=== PATIENT | female | born 1975 | race Caucasian/White ===

== ENCOUNTER 2024-05-15 23:47 | Inpatient (IN) | payer OTHER, MEDICAID, SELFPAY ==
[2024-05-16] VITALS (104 sets, daily range): BP systolic 58–239; BP diastolic 37–133; PULSE 64–97; RESP 18–25; TEMP 36.6–37; O2SAT 92–100; BMI 22.4
[2024-05-16] MEDS: propofoL 1,000 MG/100 ML VIAL 1.665 MG IV (02:30)
[2024-05-16] MEDS: NOREPINEPHRINE BITARTRATE/D5W 4 MG/250 ML PLAST..BAG IV (02:50)
--- NOTE | 2024-05-16 03:04 | DI.CT.S_ITS ---
PROCEDURE: CT HEAD/BRAIN WO CON INDICATIONS: respiratory failure TECHNIQUE: Noncontrast 4.5 mm thick angled axial sections acquired from the foramen magnum to the vertex, with coronal and sagittal reformats. For radiation dose reduction, the following was used: automated exposure control, adjustment of mA and/or kV according to patient size. COMPARISON: None. FINDINGS: Image quality: Diagnostic. CSF spaces: Basal cisterns are patent. No extra-axial fluid collections. Ventricles are normal in size and shape. Brain: No midline shift. No intracranial masses or hemorrhage. Gonsalez-white matter interface is normal. Skull and face: Calvarium and visualized facial bones are intact, without suspicious lesions. Sinuses: Visualized sinuses and mastoids are clear. IMPRESSION: No evidence acute intracranial process. Comment: Final report is concordant with preliminary interpretation provided by [facility]. Dictated by: Blake Napier M.D. on 05/16/2024 at 6:50 Approved by: Blake Napier M.D. on 05/16/2024 at 6:51
[2024-05-16 03:43] LABS: Allen Test for ABG Passed? Positive; Base Excess ABG 1.1 mmol/L (-2-3); Blood Gas Collection Site Right Radial; Blood Gas Mode Assist Cont Ventilat; Delivery System Adult Ventilator; HCO3 ABG 24 mmol/L (23-27); Oxygen Saturation ABG 94 % (95-100); PCO2 ABG 32.4 mmHg (35-45); PEEP 5; PO2 ABG 64 mmHg (80-100); Respiratory Rate 20; TCO2 ABG 24 mmol/L (23-27); pH ABG 7.48 (7.35-7.45)
--- NOTE | 2024-05-16 03:45 | DI.RAD.S_ITS ---
PROCEDURE: XR CHEST 1V INDICATIONS: resp failure TECHNIQUE: One view of the chest was acquired. COMPARISON: None. FINDINGS: Overlying EKG leads limit evaluation. Surgical changes and devices: Endotracheal tube terminates 1.8 cm above the veena. Enteric decompression tube side port is in the gastric fundus. Right sided central venous catheter tip projects over the lower SVC. Lungs and pleura: Lungs are clear. No pleural effusions or pneumothorax. Mediastinum: Mediastinal contours appear normal. Heart size is normal. Bones and chest wall: No suspicious bony lesions. Overlying soft tissues appear unremarkable. IMPRESSION: Overlying EKG leads limit evaluation. 1. Within these limitations, no definite acute cardiopulmonary process. 2. Endotracheal tube terminates 1.8 cm above the veena. Right-sided central venous catheter tip projects over the lower SVC. Enteric decompression tube side port is in the gastric fundus. Dictated by: Martha Chen M.D. on 05/16/2024 at 9:57 Approved by: Martha Chen M.D. on 05/16/2024 at 9:59
--- NOTE | 2024-05-16 03:58 | PM.CN.EICU ---
History of Present Illness Consult details IF CAMERA ACTIVATED, patient seen via real-time interactive audiovisual communication: Camera activated Chief complaint: respiratory failure with drug od Consent obtained for tele-investment counselor care: Yes Patient Location: ICU Provider location (State): [place] Other participants/roles: RN Narrative: 48 yo F w/ unknown PMHx [place] mgmt of acute hypoxic respiratory failure. Has reported hx of suicide attempts and depression; on Suboxone. UDS (+) for opioids, Suboxone and possibly THC. Failed 8 mg naloxone. pCXR, C-spine/head imaging reportedly (-). Arrived on [place] and propofol infusions. Bedside RN reports possible seizure activity. Outpt med list mostly contain antihypertensives but also Humira. Outside EMR list chronic HCV and psoriasis as problems. Current Medications Current Medications Medications: Home Medications [EFFEXOR] ##0 12/20/03 [History] [NIFIDIPINE] ##0 12/20/03 [History] [PROVERA] ##0 12/20/03 [History] Exam Vital Signs (past 8 hours): - 05/16/24 02:51 05/16/24 02:51 05/16/24 02:53 Temperature Pulse Rate 81 Respiratory Rate 20 Blood Pressure 58/37 L 72/48 L Pulse Oximetry 94 Oxygen Delivery Method Fraction of Inspired Oxygen 05/16/24 02:53 05/16/24 02:55 05/16/24 02:55 Temperature Pulse Rate 81 84 Respiratory Rate 20 20 Blood Pressure 160/104 H Pulse Oximetry 92 100 Oxygen Delivery Method Fraction of Inspired Oxygen 05/16/24 03:00 05/16/24 03:00 05/16/24 03:05 Temperature Pulse Rate 92 H 88 Respiratory Rate 20 20 Blood Pressure 195/121 H Pulse Oximetry 100 100 Oxygen Delivery Method Fraction of Inspired Oxygen 05/16/24 03:05 05/16/24 03:10 05/16/24 03:10 Temperature 98.6 F Pulse Rate 87 Respiratory Rate 20 Blood Pressure 112/62 151/96 H Pulse Oximetry 100 Oxygen Delivery Method Fraction of Inspired Oxygen 05/16/24 03:15 05/16/24 03:15 05/16/24 03:20 Temperature Pulse Rate 89 87 Respiratory Rate 21 20 Blood Pressure 150/96 H Pulse Oximetry 100 99 Oxygen Delivery Method Fraction of Inspired Oxygen 05/16/24 03:20 05/16/24 03:25 05/16/24 03:25 Temperature Pulse Rate 86 Respiratory Rate 20 Blood Pressure 143/78 H 107/62 Pulse Oximetry 99 Oxygen Delivery Method Fraction of Inspired Oxygen 05/16/24 03:26 05/16/24 03:30 05/16/24 03:30 Temperature Pulse Rate 85 Respiratory Rate 20 Blood Pressure 91/56 L Pulse Oximetry 99 Oxygen Delivery Method Mechanical Ventilation Fraction of Inspired Oxygen 05/16/24 03:45 Temperature Pulse Rate Respiratory Rate Blood Pressure Pulse Oximetry Oxygen Delivery Method Fraction of Inspired Oxygen 40 Fraction of Inspired Oxygen 40 Oxygen Delivery Method Mechanical Ventilation Const Other: intubated, sedated Resp Other: non-labored respirations on 450 mL 40% RR 20 PEEP 5 Cardio Other: sinus rhythm on monitor Objective Labs Labs: Laboratory Results - last 24 hr 05/16/24 03:39 ABG Sample Site Right radial ABG pH 7.48 H ABG pCO2 32.4 L ABG pO2 64 L ABG HCO3 24 ABG Total CO2 24 ABG O2 Saturation 94 L ABG Base Excess 1.1 Octavio Test Positive Respiration Rate 20 O2 Delivery Device Adult ventilator Mode of Support Assist cont ventilat FiO2 % 40.0 % PEEP or CPAP 5 Assessment & Plan Assessment and plan (1) Acute hypoxic respiratory failure: Status: Acute Plan: -Vent bundle (2) Seizure-like activity: Status: Acute Plan: -Start Keppra -Will probably need neuro evaluation in AM -Repeat NCHCT is being obtained (3) History of suicide attempt: Status: Acute Plan: -Obtain further history -Check acetaminophen/salicylate levels (reported Chem 7 @ outside ED w/o an AGMA) Plan #ICU best practices -VTE prophylaxis: mechanical -Stress ulcer prophylaxis: Protonix I spent a total of 35 minutes of aggregate critical care time today on this patient's care, excluding all procedural time Time-Based Coding :: [TOTAL MINUTES] spent with patient and on the chart (including review of chart, obtaining history, exam, reviewing outside data, placing orders, documenting exam and treatment plan, and counseling patient) on [DATE].
[2024-05-16 04:38] LABS: Hematocrit 31.2 % (36-46); Hemoglobin 10.4 g/dL (12.0-16.0); Mean Corpuscular HGB Conc 33.5 % (30-36); Mean Corpuscular Hemoglobin 28.3 PG (26-34); Mean Corpuscular Volume 84.6 fL (80-100); Platelet Count 239 X10^3/uL (150-400); Red Blood Cell Count 3.69 X10^6/uL (4.0-5.2); Red Cell Distribution Width 13.5 % (11.6-14.8); White Blood Cell Count 7.7 X10^3/uL (4.5-11.0)
[2024-05-16] MEDS: DEXTROSE 5%-0.9% NS 1,000 ML 84 ML IV ×2 (04:43→16:19)
[2024-05-16 04:55] LABS: Acetaminophen < 10 ug/mL (10-30); Alanine Aminotransferase 18 IU/L (<35); Albumin 3.4 g/dL (3.5-5.0); Albumin Globulin Ratio 1.5 (1.0-2.8); Alkaline Phosphatase 73 U/L (38-126); Aspartate Aminotransferase 27 IU/L (14-36); BUN Creatinine Ratio 13.5 (6-22); Bilirubin Total 0.4 mg/dL (0.2-1.3); Blood Urea Nitrogen 12 mg/dL (7-17); Calcium 8.8 mg/dL (8.4-10.2); Carbon Dioxide 27 mmol/L (22-32); Chloride 112 mmol/L (98-107); Estimated Glomerular Filt Rate > 60 mL/min (>60); Globulin 2.3 g/dL (1.7-4.1); Glucose 87 mg/dL (70-100); HEMOLYSIS < 15 (0-50); Potassium 3.4 mmol/L (3.4-5.1); Salicylate < 1.0 mg/dL (<20); Sodium 144 mmol/L (137-145); Total Protein 5.7 g/dL (6.3-8.2)
[2024-05-16] MEDS: LEVETIRACETAM IV (05:14)
[2024-05-16] MEDS: SODIUM CHLORIDE 0.9% IV (05:14)
[2024-05-16] MEDS: CHLORHEXIDINE GLUCONATE 15 ML CUP PO ×3 (05:27→16:54)
--- NOTE | 2024-05-16 06:05 | PM.HP.1 ---
History of Present Illness History of Present Illness Date Patient Seen: 05/16/24 Time Patient Seen: 03:15 Chief complaint: respiratory failure with drug od Narrative: 48 years old female with a past medical history of drug abuse, suicidal ideation, major depression, hypertension and previous hospitalization for drug overdose needing vent support and multiple other medical issues was brought to the emergency room at an outside facility after being found unresponsive at home by her with an unknown downtime. EMS states her blood pressure was low and the CPR was performed. Patient was intubated in the field using succinylcholine and etomidate. Patient is currently unresponsive event and most of the history has been obtained from the chart/caregivers. In the emergency room at the outside facility, workup included CT of the head that showed no acute process. Labs showed a white count of 9.7 with a hemoglobin of 10.9. ABG showed pH of 7.54 with a pCO2 of 31 on vent. Sodium 140 with a potassium of 3.4 calcium is 9.5 magnesium 1.7, TSH of 4.29, folate of 6.5, B12 of 595, lipase of 50. Urine analysis is negative for ketones negative for leukocyte esterase. Urine tox screen is positive for opiates, buprenorphine, amphetamine and methamphetamine. IJ line was placed and patient needed initially Levophed for pressor support/propofol for sedation. Patient was transferred to [facility] for higher level of care Meds Home Medications and Allergies Home Medications Medication Instructions Recorded Confirmed Type [EFFEXOR] ##0 12/20/03 History [NIFIDIPINE] ##0 12/20/03 History [PROVERA] ##0 12/20/03 History Allergies Allergy/AdvReac Type Severity Reaction Status Date / Time No Known Allergies Allergy Verified 05/16/24 03:29 Review of Systems Review of Systems Narrative: unresponsive on vent Exam Vital Signs (past 8 hours): - 05/16/24 02:51 05/16/24 02:51 05/16/24 02:53 Temperature Pulse Rate 81 Respiratory Rate 20 Blood Pressure 58/37 L 72/48 L Pulse Oximetry 94 Oxygen Delivery Method Fraction of Inspired Oxygen 05/16/24 02:53 05/16/24 02:55 05/16/24 02:55 Temperature Pulse Rate 81 84 Respiratory Rate 20 20 Blood Pressure 160/104 H Pulse Oximetry 92 100 Oxygen Delivery Method Fraction of Inspired Oxygen 05/16/24 03:00 05/16/24 03:00 05/16/24 03:05 Temperature Pulse Rate 92 H 88 Respiratory Rate 20 20 Blood Pressure 195/121 H Pulse Oximetry 100 100 Oxygen Delivery Method Fraction of Inspired Oxygen 05/16/24 03:05 05/16/24 03:10 05/16/24 03:10 Temperature 98.6 F Pulse Rate 87 Respiratory Rate 20 Blood Pressure 112/62 151/96 H Pulse Oximetry 100 Oxygen Delivery Method Fraction of Inspired Oxygen 05/16/24 03:15 05/16/24 03:15 05/16/24 03:20 Temperature Pulse Rate 89 87 Respiratory Rate 21 20 Blood Pressure 150/96 H Pulse Oximetry 100 99 Oxygen Delivery Method Fraction of Inspired Oxygen 05/16/24 03:20 05/16/24 03:25 05/16/24 03:25 Temperature Pulse Rate 86 Respiratory Rate 20 Blood Pressure 143/78 H 107/62 Pulse Oximetry 99 Oxygen Delivery Method Fraction of Inspired Oxygen 05/16/24 03:26 05/16/24 03:30 05/16/24 03:30 Temperature Pulse Rate 85 Respiratory Rate 20 Blood Pressure 91/56 L Pulse Oximetry 99 Oxygen Delivery Method Mechanical Ventilation Fraction of Inspired Oxygen 05/16/24 03:35 05/16/24 03:35 05/16/24 03:40 Temperature Pulse Rate 85 84 Respiratory Rate 20 20 Blood Pressure 97/58 L Pulse Oximetry 100 100 Oxygen Delivery Method Fraction of Inspired Oxygen 05/16/24 03:40 05/16/24 03:45 05/16/24 03:45 Temperature Pulse Rate 84 Respiratory Rate 22 Blood Pressure 95/57 L 97/61 Pulse Oximetry 100 Oxygen Delivery Method Fraction of Inspired Oxygen 05/16/24 03:45 05/16/24 04:00 05/16/24 04:11 Temperature 98.4 F Pulse Rate 83 Respiratory Rate 23 Blood Pressure Pulse Oximetry 99 Oxygen Delivery Method Fraction of Inspired Oxygen 40 05/16/24 04:11 05/16/24 04:15 05/16/24 04:15 Temperature Pulse Rate 83 Respiratory Rate 19 Blood Pressure 97/61 83/51 L Pulse Oximetry 99 Oxygen Delivery Method Fraction of Inspired Oxygen 05/16/24 04:20 05/16/24 04:20 05/16/24 04:25 Temperature Pulse Rate 83 83 Respiratory Rate 20 20 Blood Pressure 87/52 L Pulse Oximetry 99 99 Oxygen Delivery Method Fraction of Inspired Oxygen 08/13/24 04:25 05/16/24 04:30 05/16/24 04:30 Temperature Pulse Rate 84 Respiratory Rate 18 Blood Pressure 85/50 L 102/68 Pulse Oximetry 99 Oxygen Delivery Method Fraction of Inspired Oxygen 05/16/24 04:35 05/16/24 04:35 05/16/24 04:40 Temperature Pulse Rate 84 85 Respiratory Rate 18 18 Blood Pressure 133/83 Pulse Oximetry 99 99 Oxygen Delivery Method Fraction of Inspired Oxygen 05/16/24 04:40 05/16/24 04:45 05/16/24 04:45 Temperature Pulse Rate 85 Respiratory Rate 18 Blood Pressure 134/86 139/86 Pulse Oximetry 99 Oxygen Delivery Method Fraction of Inspired Oxygen 05/16/24 04:50 05/16/24 04:50 05/16/24 04:55 Temperature Pulse Rate 96 H 92 H Respiratory Rate 18 18 Blood Pressure 204/114 H Pulse Oximetry 99 99 Oxygen Delivery Method Fraction of Inspired Oxygen 05/16/24 04:55 05/16/24 05:00 05/16/24 05:00 Temperature Pulse Rate 87 Respiratory Rate 18 Blood Pressure 145/85 H 98/55 L Pulse Oximetry 99 Oxygen Delivery Method Fraction of Inspired Oxygen 05/16/24 06:02 Temperature Pulse Rate Respiratory Rate Blood Pressure 232/131 H Pulse Oximetry Oxygen Delivery Method Fraction of Inspired Oxygen Fraction of Inspired Oxygen 40 Oxygen Delivery Method Mechanical Ventilation Narrative Exam Narrative: unresponsive on vent Objective Labs 05/16/24 04:30 05/16/24 04:30 Labs: Laboratory Results - last 24 hr 05/16/24 05/16/24 03:39 04:30 WBC 7.7 RBC 3.69 L Hgb 10.4 L Hct 31.2 L MCV 84.6 MCH 28.3 MCHC 33.5 RDW 13.5 Plt Count 239 ABG Sample Site Right radial ABG pH 7.48 H ABG pCO2 32.4 L ABG pO2 64 L ABG HCO3 24 ABG Total CO2 24 ABG O2 Saturation 94 L ABG Base Excess 1.1 Octavio Test Positive Respiration Rate 20 O2 Delivery Device Adult ventilator Mode of Support Assist cont ventilat FiO2 % 40.0 % PEEP or CPAP 5 Sodium 144 Potassium 3.4 Chloride 112 H Carbon Dioxide 27 BUN 12 Creatinine 0.89 Estimated GFR > 60 BUN/Creatinine Ratio 13.5 Glucose 87 Calcium 8.8 Total Bilirubin 0.4 AST 27 ALT 18 Alkaline Phosphatase 73 Total Protein 5.7 L Albumin 3.4 L Globulin 2.3 Albumin/Globulin Ratio 1.5 Salicylates < 1.0 Acetaminophen < 10 Assessment & Plan Assessment and plan (1) Acute hypoxic respiratory failure: Status: Acute Assessment & Plan narrative: 48 years old female with a past medical history of drug abuse, suicidal ideation, major depression, hypertension and previous hospitalization for drug overdose needing vent support and multiple other medical issues was brought to the emergency room at an outside facility after being found unresponsive at home by her with an unknown downtime. EMS states her blood pressure was low and the CPR was performed. Patient was intubated in the field using succinylcholine and etomidate. Patient is currently unresponsive event and most of the history has been obtained from the chart/caregivers. In the emergency room at the outside facility, workup included CT of the head that showed no acute process. Labs showed a white count of 9.7 with a hemoglobin of 10.9. ABG showed pH of 7.54 with a pCO2 of 31 on vent. Sodium 140 with a potassium of 3.4 calcium is 9.5 magnesium 1.7, TSH of 4.29, folate of 6.5, B12 of 595, lipase of 50. Urine analysis is negative for ketones negative for leukocyte esterase. Urine tox screen is positive for opiates, buprenorphine, amphetamine and methamphetamine. IJ line was placed and patient needed initially Levophed for pressor support/propofol for sedation. Patient was transferred to [facility] for higher level of care 1 drug overdose with respiratory failure currently underwent. Discussed with EICU for vent management. Repeat ABG and follow critical care for vent adjustments. In the meantime watch for anoxic encephalopathy. May eventually need neuroinput. Repeat CT scan of the brain due to pinpoint pupils which is a change in condition from the other facility. 2 seizures. Initiated on Keppra by critical care and will trend closely 3 GI prophylaxis will be with IV Protonix 4 DVT prophylaxis will be with SCDs Patient will be admitted under inpatient status. Given the respiratory failure currently needing IV pressors/IV propofol and other intervention, patient meets criteria for inpatient with expected length of stay greater than 2 midnights Time-Based Coding :: [TOTAL MINUTES] spent with patient and on the chart (including review of chart, obtaining history, exam, reviewing outside data, placing orders, documenting exam and treatment plan, and counseling patient) on [DATE].
[2024-05-16] MEDS: propofoL 1,000 MG/100 ML VIAL 6.66 MG IV (06:11)
--- NOTE | 2024-05-16 06:18 | PC.NURSE ---
Pt admitted from [facility] ED via EMS, intubated and on propofol and norepi. On arrival pt was displaying seizure like activity - full body shaking, rigid, eyes rolling back. Pupils 7mm, non reactive. Head CT and CXR completed. ETT pulled back per radiology recommendations. Neuro: Propofol for comfort on vent and seizure activity, pt intermittently does seem to wake up and track voice. Keppra loading dose given Pulm: Vent at 40%, 5+. LS CTA Cardiac: SR, rates 80s. BP extremely labile - very sensitive to norepi titrations. GI: OG to LIS , abd flat and soft : Snow in place via adequate yellow urine Access: Triple lumen right IJ, left EJ Skin: Psoriasis rash on back, chest, and arms Family: Lives with , no contact overnight
[2024-05-16 07:03] LABS: MRSA (Nasal) PCR NOT DETECTED (Not Detect)
[2024-05-16 09:17] LABS: Prothrombin Time 11.5 SECONDS (9.4-12.5)
[2024-05-16 09:20] LABS: PTT Partial Thromboplastin Tim 29 SECONDS (25.1-36.5)
[2024-05-16] MEDS: PANTOPRAZOLE 40 MG VIAL IV (09:23)
[2024-05-16] MEDS: POTASSIUM CHLORIDE IN WATER 10 MEQ/100 ML PIGGYBACK 100 MEQ IV ×2 (09:23→10:52)
[2024-05-16 09:33] LABS: Troponin I < 0.012 ng/mL (0.01-0.034)
[2024-05-16 09:53] LABS: Creatine Kinase 251 U/L (30-135)
--- NOTE | 2024-05-16 10:10 | DIET.CONS ---
Dietary Consultation Note Admission Date: 05/15/2024 23:47 Assessment: 48 y F admitted from outside facility after being found unresponsive at home. Nutrition consulted for NPO and on vent. PMH of drug abuse, suicidal ideation, and previous hospitalizations for drug overdose needing vent support. Per RN, SBT later today. If unable to extubate, recommend starting enteral nutrition within 48 hours. Propofol running at 10 mcg/kg/min providing 88 kcals/day. Ht: 157.48 cm Wt: 55.5 kg BMI: 22.4 UBW: No weight hx Last BM: () MNA: Marcello Score: 13 Labs: RBC 3.69 X10^6/uL (4.0-5.2) L 05/16/24 04:30 Hgb 10.4 g/dL (12.0-16.0) L 05/16/24 04:30 Hct 31.2 % (36-46) L 05/16/24 04:30 Creatinine 0.89 mg/dL (0.52-1.04) 05/16/24 04:30 Nutrition Diagnosis: Inadequate oral intake r/t intubated aeb NPO on vent Interventions: 1. Recc continuous enteral nutrition of Pivot 1.5 starting at 20 mL/h and titrating 10 mL/h q 8h as tolerated until goal rate of 30 mL/h. Free water flush 100 mL q 4 hr. Goal rate + current dose propofol provides 1168 kcals (83% EER), 67 g protein (100% estimated needs), and 540 mL water. Feed+flush+IV meets fluids needs (30 mL/kg). 2. Recc Mg, K+, phos labs BID for first 3 days EER: 4649-1062 kcals (25-29 kcals/kg per BMI) 50-60 g protein (1 g/kg) Monitoring/Evaluations: start of TF, TF rate, tolerance, propofol rate, labs Electronically Signed by: Arin Plascencia 05/16/24 10:10 Clinical Dietitian [address] [id number]
--- NOTE | 2024-05-16 13:21 | PM.ICURNDS ---
- :: This patient was seen via real time interactive two-way audiovisual telecommunication. pt remains intubated and sedated. mental status is slowly imrpovng but not well enough for SAt/SBT/PSV trials. she remians on levophed
--- NOTE | 2024-05-16 13:43 | P.HP_ITS ---
History of Present Illness History of Present Illness Date Patient Seen: 05/16/24 Time Patient Seen: 08:45 Chief complaint: respiratory failure with drug od Narrative: Per overnight admitting provider, 48 years old female with a past medical history of drug abuse, suicidal ideation, major depression, hypertension and previous hospitalization for drug overdose needing vent support and multiple other medical issues was brought to the emergency room at an outside facility after being found unresponsive at home by her with an unknown downtime. EMS states her blood pressure was low and the CPR was performed. Patient was intubated in the field using succinylcholine and etomidate. Patient is currently unresponsive event and most of the history has been obtained from the chart/caregivers. In the emergency room at the outside facility, workup included CT of the head that showed no acute process. Labs showed a white count of 9.7 with a hemoglobin of 10.9. ABG showed pH of 7.54 with a pCO2 of 31 on vent. Sodium 140 with a potassium of 3.4 calcium is 9.5 magnesium 1.7, TSH of 4.29, folate of 6.5, B12 of 595, lipase of 50. Urine analysis is negative for ketones negative for leukocyte esterase. Urine tox screen is positive for opiates, buprenorphine, amphetamine and methamphetamine. IJ line was placed and patient needed initially Levophed for pressor support/propofol for sedation. Patient was transferred to [facility] for higher level of care Patient remains intubated, no additional history available at this time. Patient reportedly had seizure like activity here. Was given keppra load. CK mildly elevated in the 200s. Troponin was negative (checked due to CPR being performed). [facility] Medical History Depression (08/24/02) Hepatitis C, chronic (04/11/02) Meds Home Medications and Allergies Home Medications Medication Instructions Recorded Confirmed Type [EFFEXOR] ##0 12/20/03 History [NIFIDIPINE] ##0 12/20/03 History [PROVERA] ##0 12/20/03 History amlodipine 10 mg tablet 10 mg PO DAILY 05/16/24 History lisinopril 40 mg tablet 40 mg PO DAILY 05/16/24 History methotrexate sodium 5 mg tablet 15 mg PO 05/16/24 History (Trexall) methylphenidate HCl 20 mg tablet 20 mg PO BID 05/16/24 05/16/24 History metoprolol succinate 100 mg 100 mg PO DAILY 05/16/24 History tablet,extended release 24 hr venlafaxine 150 mg 150 mg PO DAILY 05/16/24 History capsule,extended release 24 hr Allergies Allergy/AdvReac Type Severity Reaction Status Date / Time No Known Allergies Allergy Verified 05/16/24 03:29 Review of Systems Review of Systems Narrative: unable to perform Exam Vital Signs (past 8 hours): - 05/16/24 05:51 05/16/24 05:51 05/16/24 06:00 Temperature Pulse Rate 87 93 H Respiratory Rate 18 18 Blood Pressure 113/65 Pulse Oximetry 99 99 Oxygen Delivery Method 05/16/24 06:00 05/16/24 06:02 05/16/24 06:06 Temperature Pulse Rate Respiratory Rate Blood Pressure 222/131 H 232/131 H 161/97 H Pulse Oximetry Oxygen Delivery Method 05/16/24 06:06 05/16/24 06:10 05/16/24 06:10 Temperature Pulse Rate 93 H 90 Respiratory Rate 19 21 Blood Pressure 149/91 H Pulse Oximetry 99 99 Oxygen Delivery Method 05/16/24 06:15 05/16/24 06:15 05/16/24 06:18 Temperature Pulse Rate 87 Respiratory Rate 24 Blood Pressure 122/76 122/76 Pulse Oximetry 99 Oxygen Delivery Method 05/16/24 06:30 05/16/24 06:30 05/16/24 06:45 Temperature Pulse Rate 84 83 Respiratory Rate 18 19 Blood Pressure 105/70 Pulse Oximetry 99 99 Oxygen Delivery Method 05/16/24 06:45 05/16/24 07:00 05/16/24 07:00 Temperature Pulse Rate 82 Respiratory Rate 18 Blood Pressure 98/68 101/70 Pulse Oximetry 99 Oxygen Delivery Method 05/16/24 08:00 05/16/24 08:00 05/16/24 08:00 Temperature Pulse Rate 82 Respiratory Rate 18 Blood Pressure 114/75 Pulse Oximetry 99 Oxygen Delivery Method Mechanical Ventilation 05/16/24 08:15 05/16/24 08:15 05/16/24 08:24 Temperature Pulse Rate 80 Respiratory Rate 18 Blood Pressure 86/54 L 89/50 L Pulse Oximetry 99 Oxygen Delivery Method 05/16/24 08:24 05/16/24 08:30 05/16/24 08:30 Temperature Pulse Rate 80 79 Respiratory Rate 18 18 Blood Pressure 83/53 L Pulse Oximetry 97 97 Oxygen Delivery Method 05/16/24 08:30 05/16/24 08:32 05/16/24 08:32 Temperature 98.3 F Pulse Rate 78 Respiratory Rate 19 Blood Pressure 83/51 L Pulse Oximetry 97 Oxygen Delivery Method 05/16/24 08:45 05/16/24 08:45 05/16/24 09:00 Temperature Pulse Rate 79 Respiratory Rate 18 Blood Pressure 102/64 99/63 Pulse Oximetry 98 Oxygen Delivery Method 05/16/24 09:00 05/16/24 09:30 05/16/24 09:30 Temperature Pulse Rate 81 81 Respiratory Rate 18 19 Blood Pressure 101/63 Pulse Oximetry 97 97 Oxygen Delivery Method 05/16/24 09:45 05/16/24 09:45 05/16/24 10:00 Temperature Pulse Rate 81 Respiratory Rate 19 Blood Pressure 100/60 102/62 Pulse Oximetry 97 Oxygen Delivery Method 05/16/24 10:00 05/16/24 10:15 05/16/24 10:15 Temperature Pulse Rate 82 82 Respiratory Rate 18 19 Blood Pressure 103/60 Pulse Oximetry 97 97 Oxygen Delivery Method 05/16/24 10:30 05/16/24 10:30 05/16/24 10:45 Temperature Pulse Rate 83 82 Respiratory Rate 18 18 Blood Pressure 103/59 L Pulse Oximetry 97 97 Oxygen Delivery Method 05/16/24 10:45 05/16/24 11:00 05/16/24 11:00 Temperature Pulse Rate 82 Respiratory Rate 18 Blood Pressure 106/63 101/63 Pulse Oximetry 97 Oxygen Delivery Method 05/16/24 11:15 05/16/24 11:15 05/16/24 11:30 Temperature Pulse Rate 82 82 Respiratory Rate 18 18 Blood Pressure 105/62 Pulse Oximetry 97 97 Oxygen Delivery Method 05/16/24 11:30 05/16/24 11:45 05/16/24 11:45 Temperature Pulse Rate 81 Respiratory Rate 18 Blood Pressure 102/63 107/64 Pulse Oximetry 96 Oxygen Delivery Method 05/16/24 12:00 05/16/24 12:00 05/16/24 12:15 Temperature Pulse Rate 82 81 Respiratory Rate 18 22 Blood Pressure 108/65 Pulse Oximetry 96 97 Oxygen Delivery Method 05/16/24 12:15 05/16/24 12:30 05/16/24 12:30 Temperature Pulse Rate 81 Respiratory Rate 19 Blood Pressure 111/68 113/69 Pulse Oximetry 97 Oxygen Delivery Method 05/16/24 12:45 05/16/24 12:45 05/16/24 13:00 Temperature 98.6 F Pulse Rate 81 Respiratory Rate 19 Blood Pressure 105/66 105/63 Pulse Oximetry 97 Oxygen Delivery Method 05/16/24 13:00 Temperature Pulse Rate 80 Respiratory Rate 18 Blood Pressure Pulse Oximetry 97 Oxygen Delivery Method Fraction of Inspired Oxygen 40 Oxygen Delivery Method Mechanical Ventilation Narrative Exam Narrative: Gen: intubated, sedated ENT: ETT in place CV: RRR no m/r/g Pulm: CTA though ventilated Ext: no edema Objective ECG Impression: reviewed outside ekg, normal sinus rhythm, no acute ischemia. Labs 05/16/24 04:30 05/16/24 04:30 Labs: Laboratory Results - last 24 hr 05/16/24 05/16/24 05/16/24 03:07 03:39 04:30 WBC 7.7 RBC 3.69 L Hgb 10.4 L Hct 31.2 L MCV 84.6 MCH 28.3 MCHC 33.5 RDW 13.5 Plt Count 239 PT INR APTT ABG Sample Site Right radial ABG pH 7.48 H ABG pCO2 32.4 L ABG pO2 64 L ABG HCO3 24 ABG Total CO2 24 ABG O2 Saturation 94 L ABG Base Excess 1.1 Octavio Test Positive Respiration Rate 20 O2 Delivery Device Adult ventilator Mode of Support Assist cont ventilat FiO2 % 40.0 % PEEP or CPAP 5 Sodium 144 Potassium 3.4 Chloride 112 H Carbon Dioxide 27 BUN 12 Creatinine 0.89 Estimated GFR > 60 BUN/Creatinine Ratio 13.5 Glucose 87 Calcium 8.8 Total Bilirubin 0.4 AST 27 ALT 18 Alkaline Phosphatase 73 Total Creatine Kinase Troponin I Total Protein 5.7 L Albumin 3.4 L Globulin 2.3 Albumin/Globulin Ratio 1.5 Nasal Screen MRSA (PCR) Not detected Salicylates < 1.0 Acetaminophen < 10 05/16/24 08:58 WBC RBC Hgb Hct MCV MCH MCHC RDW Plt Count PT 11.5 INR 1.0 APTT 29 ABG Sample Site ABG pH ABG pCO2 ABG pO2 ABG HCO3 ABG Total CO2 ABG O2 Saturation ABG Base Excess Octavio Test Respiration Rate O2 Delivery Device Mode of Support FiO2 % PEEP or CPAP Sodium Potassium Chloride Carbon Dioxide BUN Creatinine Estimated GFR BUN/Creatinine Ratio Glucose Calcium Total Bilirubin AST ALT Alkaline Phosphatase Total Creatine Kinase 251 H Troponin I < 0.012 Total Protein Albumin Globulin Albumin/Globulin Ratio Nasal Screen MRSA (PCR) Salicylates Acetaminophen Assessment & Plan Assessment & Plan narrative: 48 years old female with a past medical history of drug abuse, suicidal ideation, major depression, hypertension and previous hospitalization for drug overdose needing vent support and multiple other medical issues was brought to the emergency room at an outside facility after being found unresponsive at home by her with an unknown downtime with presumed overdose at this time vs possible seizure. 1. Undifferentiated, likely hypovolemic rather than septic, shock - wean levophed as tolerated, continue IV fluids. - no obvious infection, normal WBC. Check UA. CXR with no pneumonia. Monitor off antibiotics now. - appreciate tele-system designer consultation / management. 2. presumed toxic encephalopathy and acute respiratory failure with hypoxia - will leave intubated and sedated today, attempt sedation vacation starting tomorrow. - keep O2 sats above 90%. 3. Reported seizure activity - unclear if previously known seizures. May be related to ingestion as well, or possible drug withdrawal as well. - started on keppra, will continue IV BID for now. - CK mildly elevated at 251, though not check on admission would suspect higher before. 4. HTN - hold any home antihypertensives in the setting of shock. Resume if needed. I have utilized all available immediate resources to obtain, update, or review the patient's current medications. Dispo: patient admitted under inpatient status to the ICU. Will need mental health evaluation once extubated to determine if patient safe to return home,. Additional history obtained via discussions with the overnight provider and tele-system designer. These discussions contributed to the creation of the above assessment and plan. I have reviewed patient's presenting documentation, labs, and imaging personally. I spent 40 minutes providing critical care management this patient. This excludes time spent in performing separately billed procedures. Time-Based Coding :: [TOTAL MINUTES] spent with patient and on the chart (including review of chart, obtaining history, exam, reviewing outside data, placing orders, documenting exam and treatment plan, and counseling patient) on [DATE].
--- NOTE | 2024-05-16 15:30 | CM.DANOTE ---
DCP Assessment Note: Pt is a 48yo female, resident of [place], is admitted for respiratory failure with possible substance use OD. Pt lives in a house with her spouse and her adult stepdaughter with special needs. Pt's Primary Care Provider is Dr. Andrew Kellogg and insurance is [facility] and Medicaid. Reviewed chart and team rounds for pt's medical status and initial discharge needs. Per hospitalist, pt will remain sedated this day. DCP met w/patient at bedside; introduced self and role. Patient was found in bed, sedated and intubated, not able to participate in assessment. DCP attempted to contact pt's but was not able to contact. Plan: Plan of care evolving, pt is sedated and intubated at this time. CM team will follow closely for coordination of discharge plans. FELECIA Peña Discharge Planning/Care Management CM Discharge Assessment Start: 05/16/24 15:28 Freq: Status: Active Protocol: Document 05/16/24 15:28 MW (Rec: 05/16/24 15:30 MW [id number]) Discharge Planning Assessment Assigned Machine Edge Bander KADEEM Partt DPOA/Assigned Designee Name Adam Spouse Contact Information [phone] Advance Directives? No History Provided By Medical Record Has Patient been admitted in last 30 No days? Prior Living Arrangements House Household Members spouse,children Comment Pt lives with spouse and adult stepdaughter who has special needs. Type of transporation used prior to Drives own vehicle admit Independent with ADL's Yes Is patient alert and oriented? No: Pt currently sedated and intubated. Caregiver for Another No Please Provide Date Initial DC 05/16/24 Assessment Was Performed Next Review Type Continued Stay Review
--- NOTE | 2024-05-16 15:50 | PC.NURSE ---
VALUABLES Pt's rings (x3) removed from fingers due to hand swelling and then stud earrings (x4) removed from ears per 's (Adam) request. Pt took all jewelry home with him.
[2024-05-16 16:32] LABS: Appearance Urine UA CLEAR; Bilirubin Urine UA NEGATIVE (NEGATIVE); Color Urine UA YELLOW; Glucose Urine UA NEGATIVE (Negative); Ketones Urine UA NEGATIVE (NEGATIVE); Leukocyte Esterase Urine UA TRACE (NEGATIVE); Nitrite Urine UA NEGATIVE (Negative); Occult Blood Urine UA TRACE-INTACT (Negative); Protein Urine UA TRACE (Negative); Specific Gravity Urine UA >=1.030 (1.000-1.035); Urobilinogen Urine UA 0.2 E.U./dL (0.2)
[2024-05-16 16:41] LABS: Bacteria Urine Moderate (10-30); Culture Indicated Urine Specimen Cultured; RBC Urine 1-5/HPF (0-5/HPF); Squamous Epithelial Cell Urine 1-5 /HPF (0-5/HPF); Urine Volume 3; WBC Urine 5-10/HPF (0-5/HPF); pH Urine UA 5.5 (4.5-8.0)
[2024-05-16] MEDS: levETIRAcetam 500 MG in SODIUM CHLORIDE 0.9% 100 ML 420 MG IV (16:53)
--- NOTE | 2024-05-16 18:21 | PC.NURSE ---
Day Shift Note Patient remains on mechanical vent TV 300/35% FIO2/RR 18/5. SpO2 upper 90s. SR in the 70-80s. SAT done, propofol off for first half of shift, pt will open eyes to voice but does not track, able to intermittently follow commands, falls quickly back asleep. Labile, intermittently agitated with care so propofol was restarted at 10 mcg/kg/min. Approx 1800 pt eyes wide and thrashing in bed, oriented to situation, difficult to calm, propofol gtt titrated up to 30 mcg/kg/min. Levophed off since 1600, goal MAP 60 or greater per MD. Soft restraints in place to bilateral wrists. Snow in place and draining yellow urine.
--- NOTE | 2024-05-16 20:07 | P.ICUMDRN_ITS ---
- Date Patient Seen: 05/16/24 :: This patient was seen via real time interactive two-way audiovisual telecommunic ation. Note: Admitted for acute encephalopathy and respiratory failure. Remains sedated with propofol. No acute issues. Will check SAT in the am. D/w bedside RN.
[2024-05-16] MEDS: propofoL 1,000 MG/100 ML VIAL 11.655 MG IV (22:07)
[2024-05-17] VITALS (57 sets, daily range): BP systolic 108–184; BP diastolic 68–114; PULSE 62–89; RESP 18–23; TEMP 36.1–37.3; O2SAT 89–99
[2024-05-17] MEDS: CHLORHEXIDINE GLUCONATE 15 ML CUP PO ×4 (01:33→16:32)
[2024-05-17] MEDS: DEXTROSE 5%-0.9% NS 1,000 ML 84 ML IV ×2 (03:16→13:45)
[2024-05-17 03:32] LABS: Add Manual Diff / Slide Review NO; Basophils Absolute Auto 0 /uL (0-100); Basophils Percent Auto 0.4 % (0-2); Eosinophils Absolute Auto 200 /uL (0-450); Eosinophils Percent Auto 4.2 % (2-4); Hematocrit 28.3 % (36-46); Hemoglobin 9.5 g/dL (12.0-16.0); Lymphocytes Absolute Auto 1300 /uL (1100-4500); Lymphocytes Percent Auto 23.9 % (25-40); Mean Corpuscular HGB Conc 33.6 % (30-36); Mean Corpuscular Hemoglobin 28.6 PG (26-34); Mean Corpuscular Volume 85.3 fL (80-100); Monocytes Absolute Auto 500 /uL (0-900); Neutrophils Absolute Auto 3400 /uL (1500-7000); Neutrophils Percent Auto 62.5 % (50-75); Platelet Count 167 X10^3/uL (150-400); Red Blood Cell Count 3.32 X10^6/uL (4.0-5.2); Red Cell Distribution Width 13.9 % (11.6-14.8); White Blood Cell Count 5.5 X10^3/uL (4.5-11.0)
--- NOTE | 2024-05-17 03:45 | DI.RAD.S_ITS ---
PROCEDURE: XR CHEST 1V INDICATIONS: resp failure TECHNIQUE: One view of the chest was acquired. COMPARISON: [facility], CR, XR CHEST 1V, 05/16/2024, 3:49. FINDINGS: Surgical changes and devices: Enteric tube courses below the left hemidiaphragm in of the field view. The endotracheal tube terminates approximately 4.5 centimeters above the veena. Interval removal of a right-sided central venous catheter. Lungs and pleura: Lungs are clear. No pleural effusions or pneumothorax. Mediastinum: Mediastinal contours appear normal. Heart size is normal. Bones and chest wall: No suspicious bony lesions. Overlying soft tissues appear unremarkable. IMPRESSION: 1. No acute cardiopulmonary process. 2. Interval removal of a right-sided central venous catheter. Dictated by: Danilo Zuleta M.D. on 05/17/2024 at 9:43 Approved by: Danilo Zuleta M.D. on 05/17/2024 at 9:48
[2024-05-17 03:49] LABS: Alanine Aminotransferase 14 IU/L (<35); Albumin 2.9 g/dL (3.5-5.0); Albumin Globulin Ratio 1.3 (1.0-2.8); Alkaline Phosphatase 60 U/L (38-126); Aspartate Aminotransferase 19 IU/L (14-36); BUN Creatinine Ratio 15.1 (6-22); Bilirubin Total 0.3 mg/dL (0.2-1.3); Blood Urea Nitrogen 11 mg/dL (7-17); Carbon Dioxide 28 mmol/L (22-32); Chloride 115 mmol/L (98-107); Estimated Glomerular Filt Rate > 60 mL/min (>60); Globulin 2.3 g/dL (1.7-4.1); Glucose 114 mg/dL (70-100); HEMOLYSIS < 15 (0-50); Magnesium 1.8 mg/dL (1.6-2.3); Potassium 3.6 mmol/L (3.4-5.1); Sodium 145 mmol/L (137-145); Total Protein 5.2 g/dL (6.3-8.2)
[2024-05-17] MEDS: levETIRAcetam 500 MG in SODIUM CHLORIDE 0.9% 100 ML 420 MG IV ×2 (04:53→15:34)
[2024-05-17] MEDS: propofoL 1,000 MG/100 ML VIAL 9.99 MG IV (04:58)
--- NOTE | 2024-05-17 06:10 | PC.NURSE ---
Pt is extremely hypersensitive when attempting to perform cares, requires increase in propofol so she is unable to pull ETT out. Yellow thick sputum this AM. was updated overnight.
[2024-05-17] MEDS: dexmedeTOMIDine in 0.9 % NaCL 400 MCG/100 ML PLAST..BAG IV (08:45)
[2024-05-17] MEDS: PANTOPRAZOLE 40 MG VIAL IV (08:46)
--- NOTE | 2024-05-17 10:12 | P.TELICUPN_ITS ---
Subjective Subjective IF CAMERA ACTIVATED, patient seen via real-time interactive audiovisual communication: Camera activated Consent obtained for tele-model and pattern supervisor care: Yes Patient Location: ICU Provider location (State): Other participants/roles: RN Interval history: Pt intubated , sedated on propfol and precedex @0.8. CAR RESTORER reviewed, vent 18/300/5/21% (1) Acute hypoxic respiratory failure: Status: Acute Plan: Increase precdedx and wean off Propofol then SBT -Vent bundle (2) Seizure-like activity: Acute -On Keppra -Will probably need neuro evaluation in AM -Repeat NCHCT is being obtained (3) History of suicide attempt: Status: Acute Plan: Psych consult after extubation Plan #ICU best practices -VTE prophylaxis: mechanical -Stress ulcer prophylaxis: Protonix I spent a total of 35 minutes of aggregate critical care time today on this patient's care, excluding all procedural time Current Medications Current Medications Medications: Home Medications amlodipine 10 mg tablet 10 mg PO DAILY 05/16/24 [History Confirmed 05/16/24] buprenorphine 8 mg-naloxone 2 mg sublingual film (Suboxone) 2.5 film sublingual DAILY 05/16/24 [History Confirmed 05/16/24] clonazepam 1 mg tablet 1 mg PO BID 05/16/24 [History Confirmed 05/16/24] lisinopril 40 mg tablet 40 mg PO DAILY 05/16/24 [History Confirmed 05/16/24] methotrexate sodium 5 mg tablet (Trexall) 15 mg PO QWEEK 05/16/24 [History Confirmed 05/16/24] methylphenidate HCl 20 mg tablet 20 mg PO BID 05/16/24 [History Confirmed 05/16/24] metoprolol succinate 100 mg tablet,extended release 24 hr 100 mg PO DAILY 05/16/24 [History Confirmed 05/16/24] venlafaxine 150 mg capsule,extended release 24 hr 150 mg PO DAILY 05/16/24 [History Confirmed 05/16/24] venlafaxine 75 mg capsule,extended release 24 hr 75 mg PO DAILY 05/16/24 [History Confirmed 05/16/24] Visit Medications (administered) Generic Name Dose Route Start Last Admin Trade Name Freq PRN Reason Stop Dose Admin Chlorhexidine Gluconate 15 ml 05/16/24 06:00 05/17/24 06:16 Chlorhexidine Gluconate 15 Ml Cup PO 15 ml Q6HR SHE Administration NOREPINEPHRINE BITARTRATE/D5W 4 mg in 250 mls @ 20.813 mls/hr 05/16/24 03:43 05/16/24 16:00 Levophed IV 0 mcg/kg/min TITRATE SHE 0 mls/hr Titration Protocol 0.1 MCG/KG/MIN Propofol 1,000 mg in 100 mls @ 1.665 mls/hr 05/16/24 03:45 05/17/24 09:00 Propofol IV 50 mcg/kg/min TITRATE SHE 16.65 mls/hr Titration Protocol 5 MCG/KG/MIN Dextrose/Sodium Chloride 1,000 mls @ 84 mls/hr 05/16/24 04:00 05/17/24 03:16 Dextrose 5%-0.9% Ns IV 84 mls/hr CONT SHE Administration Levetiracetam 500 mg/ Sodium 105 mls @ 420 mls/hr 05/16/24 16:00 05/17/24 05:15 Chloride IV Infused Q12H SHE Infusion dexmedeTOMIDine in 0.9 % NaCL 400 mcg in 100 mls @ 2.775 mls/hr 05/17/24 08:45 05/17/24 09:30 Precedex IV 0.8 mcg/kg/hr TITRATE SHE 11.1 mls/hr Titration Protocol 0.2 MCG/KG/HR Pantoprazole Sodium 40 mg 05/16/24 09:00 05/17/24 08:46 Pantoprazole 40 Mg Vial IV 40 mg DAILY SHE Administration Objective Ventilator Parameters: Ventilator Settings FiO2 30 RT Vent Frequency 18 Ventilator Tidal Volume 300 Exhaled Vt/kg IBW 6 Positive End Expiratory 5 Pressure Inspiratory Phase Time 0.9 I:E Ratio 1:2.7 Patient Position HOB >= 30 degrees Labs 05/17/24 03:22 05/17/24 03:22 Labs: Laboratory Results - last 24 hr 05/16/24 05/17/24 15:34 03:22 WBC 5.5 RBC 3.32 L Hgb 9.5 L Hct 28.3 L MCV 85.3 MCH 28.6 MCHC 33.6 RDW 13.9 Plt Count 167 Neut % (Auto) 62.5 Lymph % (Auto) 23.9 L [place] % (Auto) 9.0 Eos % (Auto) 4.2 H Baso % (Auto) 0.4 Neut # (Auto) 3400 Lymph # (Auto) 1300 [place] # (Auto) 500 Eos # (Auto) 200 Baso # (Auto) 0 Sodium 145 Potassium 3.6 Chloride 115 H Carbon Dioxide 28 BUN 11 Creatinine 0.73 Estimated GFR > 60 BUN/Creatinine Ratio 15.1 Glucose 114 H Calcium 9.0 Magnesium 1.8 Total Bilirubin 0.3 AST 19 ALT 14 Alkaline Phosphatase 60 Total Protein 5.2 L Albumin 2.9 L Globulin 2.3 Albumin/Globulin Ratio 1.3 Urine Color Yellow Urine Appearance Clear Urine pH 5.5 Ur Specific [place] >=1.030 H Urine Protein Trace H Urine Glucose (UA) Negative Urine Ketones Negative Urine Occult Blood Trace-intact Urine Nitrate Negative Urine Bilirubin Negative Urine Urobilinogen 0.2 Ur Leukocyte Esterase Trace H Urine RBC 1-5/hpf Urine WBC 5-10/hpf H Ur Squamous Epith Cells 1-5 /hpf Urine Bacteria Moderate (10-30) H Ur Culture Indicated? Specimen cultured Vol Urine Centrifuged 3 Exam Vital Signs (past 8 hours): - 05/17/24 02:30 05/17/24 03:00 05/17/24 03:00 Temperature Pulse Rate 69 69 Respiratory Rate 18 18 Blood Pressure 125/78 Pulse Oximetry 96 96 Oxygen Delivery Method 05/17/24 03:30 05/17/24 04:00 05/17/24 04:00 Temperature Pulse Rate 73 73 Respiratory Rate 19 18 Blood Pressure 119/73 Pulse Oximetry 90 L 90 L Oxygen Delivery Method 05/17/24 04:30 05/17/24 04:53 05/17/24 05:00 Temperature 99.2 F Pulse Rate 75 Respiratory Rate 18 Blood Pressure 128/78 Pulse Oximetry 90 L Oxygen Delivery Method 05/17/24 05:00 05/17/24 05:00 05/17/24 05:30 Temperature Pulse Rate 79 89 Respiratory Rate 20 18 Blood Pressure Pulse Oximetry 89 L 93 Oxygen Delivery Method Mechanical Ventilation 05/17/24 06:00 05/17/24 06:00 05/17/24 06:30 Temperature Pulse Rate 84 73 Respiratory Rate 19 18 Blood Pressure 122/69 Pulse Oximetry 93 95 Oxygen Delivery Method 05/17/24 08:40 Temperature Pulse Rate Respiratory Rate Blood Pressure Pulse Oximetry Oxygen Delivery Method Mechanical Ventilation Fraction of Inspired Oxygen 40 Oxygen Delivery Method Mechanical Ventilation Assessment & Plan Time-Based Coding :: [TOTAL MINUTES] spent with patient and on the chart (including review of chart, obtaining history, exam, reviewing outside data, placing orders, documenting exam and treatment plan, and counseling patient) on [DATE].
[2024-05-17] MEDS: propofoL 1,000 MG/100 ML VIAL 13.32 MG IV ×2 (10:29→17:26)
[2024-05-17] MEDS: fentaNYL 100 MCG/2 ML INJ 25 MCG IV ×4 (12:23→20:45)
[2024-05-17] MEDS: AMLODIPINE 5 MG TABLET 10 MG TUBE (13:45)
[2024-05-17] MEDS: dexmedeTOMIDine in 0.9 % NaCL 400 MCG/100 ML PLAST..BAG 16.65 MCG IV ×2 (13:45→18:45)
--- NOTE | 2024-05-17 13:48 | DIET.PN1 ---
Dietary Progress Note Tube feeds starting this evening. Propofol now running at 40 mcg/kg/min providing 352 kcals. Enteral nutrition recommendations from consult remain the same. Goal rate + current rate propofol provides 1432 kcals (100% of EER) and 67 g protein (100% of EER). Will monitor TF rate, tolerance, propofol rate, labs. Ht: 157.48 cm Wt: 55.5 kg BMI: 22.4 Last BM: () MNA: Marcello Score: 14 Diet: 05/17/24 Dinner Tube Feeding Diet Diet Modifications: TF Supplement type: Pivot 1.5 ramo TF mode of delivery: Continuous Starting flow rate mL/hr: 20 Flow rate goal mL/hr: 30 Titration Schedule to reach Goal Rate: 10 q8hr Max total daily volume in mL: 1,500 Free fluid: 100 Free Water Frequency: Q4H Labs: RBC 3.32 X10^6/uL (4.0-5.2) L 05/17/24 03:22 Hgb 9.5 g/dL (12.0-16.0) L 05/17/24 03:22 Hct 28.3 % (36-46) L 05/17/24 03:22 Creatinine 0.73 mg/dL (0.52-1.04) 05/17/24 03:22 Electronically Signed by: Arin Plascencia 05/17/24 13:48 Clinical Dietitian [address] [id number]
--- NOTE | 2024-05-17 14:47 | P.PN_ITS ---
Subjective Subjective Interval history: 48 F admitted to the ICU, intubated after being found down. Has failed sedation vacations, remains agitated when decreasing sedation today. Hypertensive today, resumed some of her home antihypertensives and started tube feeds. Added precedex to wean from propofol. Currently on fentanyl pushes. Exam Vital Signs (past 8 hours): - 05/17/24 08:40 05/17/24 10:45 Temperature 97.7 F Oxygen Delivery Method Mechanical Ventilation Fraction of Inspired Oxygen 40 Oxygen Delivery Method Mechanical Ventilation Narrative Exam Narrative: Gen: intubated, sedated ENT: ETT in place CV: RRR no m/r/g Pulm: CTA though ventilated Ext: no edema Objective Labs 05/17/24 03:22 05/17/24 03:22 Labs: Laboratory Results - last 24 hr 05/16/24 05/17/24 15:34 03:22 WBC 5.5 RBC 3.32 L Hgb 9.5 L Hct 28.3 L MCV 85.3 MCH 28.6 MCHC 33.6 RDW 13.9 Plt Count 167 Neut % (Auto) 62.5 Lymph % (Auto) 23.9 L [place] % (Auto) 9.0 Eos % (Auto) 4.2 H Baso % (Auto) 0.4 Neut # (Auto) 3400 Lymph # (Auto) 1300 [place] # (Auto) 500 Eos # (Auto) 200 Baso # (Auto) 0 Sodium 145 Potassium 3.6 Chloride 115 H Carbon Dioxide 28 BUN 11 Creatinine 0.73 Estimated GFR > 60 BUN/Creatinine Ratio 15.1 Glucose 114 H Calcium 9.0 Magnesium 1.8 Total Bilirubin 0.3 AST 19 ALT 14 Alkaline Phosphatase 60 Total Protein 5.2 L Albumin 2.9 L Globulin 2.3 Albumin/Globulin Ratio 1.3 Urine Color Yellow Urine Appearance Clear Urine pH 5.5 Ur Specific [place] >=1.030 H Urine Protein Trace H Urine Glucose (UA) Negative Urine Ketones Negative Urine Occult Blood Trace-intact Urine Nitrate Negative Urine Bilirubin Negative Urine Urobilinogen 0.2 Ur Leukocyte Esterase Trace H Urine RBC 1-5/hpf Urine WBC 5-10/hpf H Ur Squamous Epith Cells 1-5 /hpf Urine Bacteria Moderate (10-30) H Ur Culture Indicated? Specimen cultured Vol Urine Centrifuged 3 PFSH Medical History Depression (08/24/02) Hepatitis C, chronic (04/11/02) Social History household members: spouse and children Assessment & Plan Assessment & Plan narrative: 48 year old female with a past medical history of drug abuse, suicidal ideation, major depression, hypertension and previous hospitalization for drug overdose needing vent support and multiple other medical issues was brought to the emergency room at an outside facility after being found unresponsive at home by her with an unknown downtime with presumed overdose at this time vs possible seizure. 1. Undifferentiated, likely hypovolemic rather than septic, shock - shock now improved, slightly hypertensive. - no obvious infection, normal WBC. CXR with no pneumonia. Monitor off antibiotics now. - appreciate tele-marketing research analyst consultation / management. - UA mildly positive, reflexed for culture. Given no fever or leukocytosis and improving vitals today will continue to monitor off antibiotics. 2. presumed toxic encephalopathy and acute respiratory failure with hypoxia - failed sedation vacation today, reattempt tomorrow. Likely component of withdrawal, although unable to obtain reliable history. - keep O2 sats above 90%. - sedation with propofol (try to lower), precedex, and fentanyl pushes for now. Consider fentanyl infusion if too frequent IVP. 3. Reported seizure activity - unclear if previously known seizures. May be related to ingestion as well, or possible drug withdrawal as well. - started on keppra, will continue IV BID for now. - CK mildly elevated at 251, though not checked on admission would suspect higher theoretically if seizing. 4. HTN - resume amlodipine now, add back metoprolol IR tonight via feeding tube. Will continue to hold lisinopril for now. Dispo: patient admitted under inpatient status to the ICU. Will need mental health evaluation once extubated to determine if patient safe to return home,. Additional history obtained via discussion tele-marketing research analyst. These discussions contributed to the creation of the above assessment and plan. I have reviewed patient's presenting documentation, labs, and imaging personally. I spent 30 minutes providing critical care management this patient. This excludes time spent in performing separately billed procedures. Time-Based Coding :: [TOTAL MINUTES] spent with patient and on the chart (including review of chart, obtaining history, exam, reviewing outside data, placing orders, documenting exam and treatment plan, and counseling patient) on [DATE].
--- NOTE | 2024-05-17 18:08 | PC.NURSE ---
Day Shift Note SAT done this morning, precedex added prior to initiating SAT, propofol off. Pt extremely agitated, thrashing head and disconnecting ET tube to vent, pulling at restraints, biting tube. at bedside. Attempted to calm and orient to situation but ultimately had to restart propofol for patient safety. Pt continues to become intermittently agitated with care but improved with precedex addition and fentanyl IV pushes. RASS -3 at this time. BP increased this afternoon 180s/110s, notified and orders received - BP now 160s-170s/100s. Tube feeds started at 1800 per orders. Restraints in place to bilateral wrists. Snow catheter draining clear yellow urine.
--- NOTE | 2024-05-17 20:16 | P.ICUMDRN_ITS ---
- Date Patient Seen: 05/17/24 :: This patient was seen via real time interactive two-way audiovisual telecommunic ation. Note: Patient failed her SAT and SBT. Currently sedated with propofol and fentanyl. Will check SAT and SBT in the am. D/w bedside RN.
[2024-05-17] MEDS: METOPROLOL IR 25 MG TABLET TUBE (20:46)
[2024-05-17] MEDS: propofoL 1,000 MG/100 ML VIAL 16.65 MG IV (22:29)
[2024-05-18] VITALS (21 sets, daily range): BP systolic 110–153; BP diastolic 71–98; PULSE 66–74; RESP 18–19; TEMP 36.6–36.8; O2SAT 92–97
[2024-05-18] MEDS: dexmedeTOMIDine in 0.9 % NaCL 400 MCG/100 ML PLAST..BAG 19.425 MCG IV ×4 (00:31→14:39)
[2024-05-18] MEDS: CHLORHEXIDINE GLUCONATE 15 ML CUP PO ×2 (00:34→12:34)
[2024-05-18] MEDS: levETIRAcetam 500 MG in SODIUM CHLORIDE 0.9% 100 ML 420 MG IV ×2 (03:28→08:53)
--- NOTE | 2024-05-18 03:45 | DI.RAD.S_ITS ---
PROCEDURE: XR CHEST 1V INDICATIONS: resp failure TECHNIQUE: One view of the chest was acquired. COMPARISON: [facility], CR, XR CHEST 1V, 05/17/2024, 5:50. FINDINGS: Surgical changes and devices: Right-sided central venous catheter tip projects over the lower SVC. Endotracheal tube terminates 4 cm above the veena. Enteric tube descends below the diaphragm, tip not seen. Lungs and pleura: Small right basilar patchy consolidation. Left lung remains clear. No pleural effusions or pneumothorax. Mediastinum: Mediastinal contours appear normal. Heart size is normal. Bones and chest wall: No suspicious bony lesions. Overlying soft tissues appear unremarkable. IMPRESSION: 1. Lines and tubes are in similar positions compared to prior. 2. Small right basilar patchy consolidation which may reflect atelectasis, aspiration and/or pneumonia. Dictated by: Martha Chen M.D. on 05/18/2024 at 8:44 Approved by: Martha Chen M.D. on 05/18/2024 at 8:46
[2024-05-18] MEDS: fentaNYL 100 MCG/2 ML INJ 25 MCG IV (04:16)
[2024-05-18] MEDS: SODIUM CHLORIDE 0.9% FLUSH 10 ML IV ×2 (04:19→08:58)
[2024-05-18] MEDS: propofoL 1,000 MG/100 ML VIAL 16.65 MG IV ×3 (04:24→14:08)
[2024-05-18 05:07] LABS: Add Manual Diff / Slide Review NO; Basophils Absolute Auto 100 /uL (0-100); Basophils Percent Auto 0.8 % (0-2); Eosinophils Absolute Auto 600 /uL (0-450); Hematocrit 36.6 % (36-46); Hemoglobin 12.1 g/dL (12.0-16.0); Lymphocytes Absolute Auto 1200 /uL (1100-4500); Lymphocytes Percent Auto 10.4 % (25-40); Mean Corpuscular HGB Conc 33.1 % (30-36); Mean Corpuscular Hemoglobin 27.9 PG (26-34); Mean Corpuscular Volume 84.1 fL (80-100); Monocytes Absolute Auto 700 /uL (0-900); Neutrophils Absolute Auto 8700 /uL (1500-7000); Neutrophils Percent Auto 77.8 % (50-75); Platelet Count 191 X10^3/uL (150-400); Red Blood Cell Count 4.35 X10^6/uL (4.0-5.2); Red Cell Distribution Width 13.2 % (11.6-14.8); White Blood Cell Count 11.2 X10^3/uL (4.5-11.0)
[2024-05-18 05:12] LABS: Alanine Aminotransferase 14 IU/L (<35); Albumin 3.8 g/dL (3.5-5.0); Albumin Globulin Ratio 1.4 (1.0-2.8); Alkaline Phosphatase 76 U/L (38-126); Aspartate Aminotransferase 20 IU/L (14-36); BUN Creatinine Ratio 11.5 (6-22); Bilirubin Total 0.4 mg/dL (0.2-1.3); Blood Urea Nitrogen 7 mg/dL (7-17); Calcium 9.5 mg/dL (8.4-10.2); Carbon Dioxide 29 mmol/L (22-32); Chloride 107 mmol/L (98-107); Estimated Glomerular Filt Rate > 60 mL/min (>60); Globulin 2.8 g/dL (1.7-4.1); Glucose 139 mg/dL (70-100); HEMOLYSIS < 15 (0-50); Magnesium 1.6 mg/dL (1.6-2.3); Potassium 2.8 mmol/L (3.4-5.1); Sodium 140 mmol/L (137-145); Total Protein 6.6 g/dL (6.3-8.2)
[2024-05-18] MEDS: MAGNESIUM SULFATE 2 GM/50 ML PIGGYBACK IV (06:35)
[2024-05-18] MEDS: POTASSIUM CHLORIDE IN WATER 10 MEQ/100 ML PIGGYBACK 100 MEQ IV ×6 (06:36→10:54)
[2024-05-18] MEDS: LORazepam 2 MG/ML INJ IV (08:21)
[2024-05-18] MEDS: AMLODIPINE 5 MG TABLET 10 MG TUBE (08:48)
[2024-05-18] MEDS: PANTOPRAZOLE 40 MG VIAL IV (08:58)
[2024-05-18] MEDS: METOPROLOL IR 25 MG TABLET TUBE (08:58)
[2024-05-18] MEDS: QUETIAPINE 25 MG TABLET 50 MG PO (09:55)
[2024-05-18] MEDS: PIPERACILLIN/TAZO 3.375 GM in SODIUM CHLORIDE 0.9% 100 ML IV (09:55)
--- NOTE | 2024-05-18 10:18 | PC.NURSE ---
Attempted SAT this morning, titrated Propofol down to 30mcg/min. Pt became very agitated, pulling at restraints, attempting to dislodge ETT by thrashing head side to side, biting at tube, attempted to calm pt, but she was not following commands, unable to orient to situation or calm, titrated propofol back to the original 50mcg/min. RASS -1, pt quickly becomes agitated with care or movement. Dr Hubbard at bedside, it was noted that pt was having repetitive mouth/chin movements that improved with IVP Ativan 2mg, additional dose of IV keppra ordered and administered. Tube feeds at goal of 30mL, restrains in place to bilateral wrists, no s/s of injury, reno patent and draining clear yellow urine. No further pt needs at this time
--- NOTE | 2024-05-18 10:19 | P.TELICUPN_ITS ---
Subjective Subjective IF CAMERA ACTIVATED, patient seen via real-time interactive audiovisual communication: Camera activated Consent obtained for tele-manufacturing technology professor care: Yes Patient Location: ICU Provider location (State): [place] Other participants/roles: MD, RT, RN, Pharmacy Interval history: Pt intubated , sedated on propfol and precedex, Had episode concerning about seizure (chin movement resolved with 2 mg of ativan), failed SAT bec of agitation, Vent 18/300/5/21% (1) Acute hypoxic respiratory failure: Status: Acute Plan: Increase precdedx and wean off Propofol then SBT -Vent bundle (2) Seizure-like activity: Acute -On Keppra, increasing the dose to 1gm bid, Vimpat 100 mg (3) History of suicide attempt: Status: Acute Plan: Psych consult after extubation Plan RLL PNA/ aspiration, GPC on resp cx, started on Zosyn, f/u final resp and blood cx Acute encephalopathy, concern for seziure, plan to transfer to higher level of care for c EEG and mgt, propfol , Keppra and Vimpate #ICU best practices -VTE prophylaxis: mechanical -Stress ulcer prophylaxis: Protonix D/W Hospitalist, RN and pharmcist I spent a total of 35 minutes of aggregate critical care time today on this patient's care, excluding all procedural time Current Medications Current Medications Medications: Home Medications amlodipine 10 mg tablet 10 mg PO DAILY 05/16/24 [History Confirmed 05/16/24] buprenorphine 8 mg-naloxone 2 mg sublingual film (Suboxone) 2.5 film sublingual DAILY 05/16/24 [History Confirmed 05/16/24] clonazepam 1 mg tablet 1 mg PO BID 05/16/24 [History Confirmed 05/16/24] lisinopril 40 mg tablet 40 mg PO DAILY 05/16/24 [History Confirmed 05/16/24] methotrexate sodium 5 mg tablet (Trexall) 15 mg PO QWEEK 05/16/24 [History Confirmed 05/16/24] methylphenidate HCl 20 mg tablet 20 mg PO BID 05/16/24 [History Confirmed 05/16/24] metoprolol succinate 100 mg tablet,extended release 24 hr 100 mg PO DAILY 05/16/24 [History Confirmed 05/16/24] venlafaxine 150 mg capsule,extended release 24 hr 150 mg PO DAILY 05/16/24 [History Confirmed 05/16/24] venlafaxine 75 mg capsule,extended release 24 hr 75 mg PO DAILY 05/16/24 [History Confirmed 05/16/24] Visit Medications (administered) Generic Name Dose Route Start Last Admin Trade Name Freq PRN Reason Stop Dose Admin Amlodipine Besylate 10 mg 05/17/24 13:15 05/18/24 08:48 Amlodipine 5 Mg Tablet TUBE 10 mg DAILY SHE Administration Chlorhexidine Gluconate 15 ml 05/16/24 06:00 05/18/24 07:34 Chlorhexidine Gluconate 15 Ml Cup PO Not Given Q6HR SHE Fentanyl 25 mcg 05/17/24 08:43 05/18/24 04:16 Fentanyl 100 Mcg/2 Ml Inj IV 25 mcg Q1H PRN Administration Pain, Severe (7-10) Heparin Sodium (Porcine) 50 unit 05/18/24 09:00 05/18/24 08:58 Heparin Flush (Cl/Picc/Mid-Line) 50 Unit/5 Ml Syringe IV 50 unit BID SHE Administration NOREPINEPHRINE BITARTRATE/D5W 4 mg in 250 mls @ 20.813 mls/hr 05/16/24 03:43 05/16/24 16:00 Levophed IV 0 mcg/kg/min TITRATE SHE 0 mls/hr Titration Protocol 0.1 MCG/KG/MIN Propofol 1,000 mg in 100 mls @ 1.665 mls/hr 05/16/24 03:45 05/18/24 08:48 Propofol IV 50 mcg/kg/min TITRATE SHE 16.65 mls/hr Administration Protocol 5 MCG/KG/MIN dexmedeTOMIDine in 0.9 % NaCL 400 mcg in 100 mls @ 2.775 mls/hr 05/17/24 08:45 05/18/24 05:41 Precedex IV 1.4 mcg/kg/hr TITRATE SHE 19.425 mls/hr Administration Protocol 0.2 MCG/KG/HR POTASSIUM CHLORIDE IN WATER 10 meq in 100 mls @ 100 mls/hr 05/18/24 06:15 05/18/24 09:53 Potassium Cl 10 Meq/100 Ml Yoko IV 05/18/24 12:14 100 mls/hr Q1H SHE Administration Piperacillin Sod/Tazobactam 100 mls @ 25 mls/hr 05/18/24 10:00 08/15/24 09:55 Sod 3.375 gm/ Sodium Chloride IV 25 mls/hr Q8H SHE Administration Metoprolol Tartrate 25 mg 05/17/24 21:00 05/18/24 08:58 Metoprolol Ir 25 Mg Tablet TUBE 25 mg BID SHE Administration Pantoprazole Sodium 40 mg 05/16/24 09:00 05/18/24 08:58 Pantoprazole 40 Mg Vial IV 40 mg DAILY SHE Administration Quetiapine Fumarate 50 mg 05/18/24 09:30 05/18/24 09:55 Quetiapine 25 Mg Tablet PO 50 mg BID SHE Administration Sodium Chloride 10 ml 05/18/24 00:33 05/18/24 04:19 Sodium Chloride 0.9% Flush IV 10 ml PRN PRN Administration Flush Sodium Chloride 10 ml 05/18/24 09:00 05/18/24 08:58 Sodium Chloride 0.9% Flush IV 10 ml BID SHE Administration Objective Ventilator Parameters: Ventilator Settings FiO2 25 RT Vent Frequency 18 Ventilator Tidal Volume 300 Exhaled Vt/kg IBW 6 Positive End Expiratory 5 Pressure Inspiratory Phase Time 0.9 I:E Ratio 1:2.7 Patient Position HOB >= 30 degrees Labs 05/18/24 04:08 05/18/24 04:08 Labs: Laboratory Results - last 24 hr 05/18/24 04:08 WBC 11.2 H D RBC 4.35 Hgb 12.1 Hct 36.6 MCV 84.1 MCH 27.9 MCHC 33.1 RDW 13.2 Plt Count 191 Neut % (Auto) 77.8 H Lymph % (Auto) 10.4 L [place] % (Auto) 6.0 Eos % (Auto) 5.0 H Baso % (Auto) 0.8 Neut # (Auto) 8700 H Lymph # (Auto) 1200 [place] # (Auto) 700 Eos # (Auto) 600 H Baso # (Auto) 100 Sodium 140 Potassium 2.8 L Chloride 107 Carbon Dioxide 29 BUN 7 Creatinine 0.61 Estimated GFR > 60 BUN/Creatinine Ratio 11.5 Glucose 139 H Calcium 9.5 Magnesium 1.6 Total Bilirubin 0.4 AST 20 ALT 14 Alkaline Phosphatase 76 Total Protein 6.6 Albumin 3.8 Globulin 2.8 Albumin/Globulin Ratio 1.4 Exam Vital Signs (past 8 hours): - 05/18/24 03:00 05/18/24 03:00 05/18/24 03:00 Temperature Pulse Rate 69 Respiratory Rate 18 Blood Pressure 138/87 Pulse Oximetry 94 Oxygen Delivery Method Mechanical Ventilation 05/18/24 04:00 05/18/24 04:00 05/18/24 05:00 Temperature 97.8 F Pulse Rate 66 Respiratory Rate 18 Blood Pressure 140/87 133/83 Pulse Oximetry 94 Oxygen Delivery Method 05/18/24 05:00 05/18/24 06:00 05/18/24 06:00 Temperature Pulse Rate 68 73 Respiratory Rate 18 19 Blood Pressure 145/81 H Pulse Oximetry 94 93 Oxygen Delivery Method 05/18/24 07:00 Temperature Pulse Rate Respiratory Rate Blood Pressure Pulse Oximetry Oxygen Delivery Method Mechanical Ventilation Fraction of Inspired Oxygen 40 Oxygen Delivery Method Mechanical Ventilation Assessment & Plan Time-Based Coding :: [TOTAL MINUTES] spent with patient and on the chart (including review of chart, obtaining history, exam, reviewing outside data, placing orders, documenting exam and treatment plan, and counseling patient) on [DATE].
--- NOTE | 2024-05-18 11:27 | DIET.PN1 ---
Dietary Progress Note Assessment: Per tele-ICU product merchandiser, pt to transfer to due to higher level of care needed. TF at goal rate, 30 mL/hr. Propofol now running at 50 mcg/kg/min providing 440 kcals/day. Enteral nutrition recommendations from consult remain the same. Goal rate + current rate propofol provides 1520 kcals (100% of EER) and 67 g protein (100% of EER). Ht: 157.48 cm Wt: 55.5 kg BMI: 22.4 UBW: Last BM: () MNA: Marcello Score: 13 Diet: 05/17/24 Dinner Tube Feeding Diet Diet Modifications: TF Supplement type: Pivot 1.5 ramo TF mode of delivery: Continuous Starting flow rate mL/hr: 20 Flow rate goal mL/hr: 30 Titration Schedule to reach Goal Rate: 10 q8hr Max total daily volume in mL: 1,500 Free fluid: 100 Free Water Frequency: Q4H Nutrition Type of Feeding Tube NG/OG 05/18/24 03:00 Type of Feeding Tube NG/OG 05/17/24 17:53 Labs: RBC 4.35 X10^6/uL (4.0-5.2) 05/18/24 04:08 Hgb 12.1 g/dL (12.0-16.0) 05/18/24 04:08 Hct 36.6 % (36-46) 05/18/24 04:08 Creatinine 0.61 mg/dL (0.52-1.04) 05/18/24 04:08 Electronically Signed by: Arin Plascencia 05/18/24 11:27 Clinical Dietitian [address] [id number]
--- NOTE | 2024-05-18 13:34 | PM.DS.1 ---
History of Present Illness History of Present Illness Date Patient Seen: 05/18/24 Time Patient Seen: 13:34 Chief complaint: respiratory failure with drug od Narrative: Per overnight admitting provider, 48 years old female with a past medical history of drug abuse, suicidal ideation, major depression, hypertension and previous hospitalization for drug overdose needing vent support and multiple other medical issues was brought to the emergency room at an outside facility after being found unresponsive at home by her with an unknown downtime. EMS states her blood pressure was low and the CPR was performed. Patient was intubated in the field using succinylcholine and etomidate. Patient is currently unresponsive event and most of the history has been obtained from the chart/caregivers. In the emergency room at the outside facility, workup included CT of the head that showed no acute process. Labs showed a white count of 9.7 with a hemoglobin of 10.9. ABG showed pH of 7.54 with a pCO2 of 31 on vent. Sodium 140 with a potassium of 3.4 calcium is 9.5 magnesium 1.7, TSH of 4.29, folate of 6.5, B12 of 595, lipase of 50. Urine analysis is negative for ketones negative for leukocyte esterase. Urine tox screen is positive for opiates, buprenorphine, amphetamine and methamphetamine. IJ line was placed and patient needed initially Levophed for pressor support/propofol for sedation. Patient was transferred to [facility] for higher level of care Patient remains intubated, no additional history available at this time. Patient reportedly had seizure like activity here. Was given keppra load. CK mildly elevated in the 200s. Troponin was negative (checked due to CPR being performed). Discharge Providers Provider Date of admission: 05/15/24 23:47 Discharge Date: 05/18/24 Primary care physician: Andrew Kellogg MD Consults: 05/16/24 03:43 Consult to Dietitian, Adult Routine Comment: Reason For Exam: Patient on Ventilator and NPO Discharge provider: Dimitry Hubbard DO Summary Hospital Course Discharge Diagnosis: Please see below for hospital diagnoses: Hospital Course: 48 year old female with a past medical history of drug abuse, suicidal ideation, major depression, hypertension and previous hospitalization for drug overdose needing vent support and multiple other medical issues was brought to the emergency room at an outside facility after being found unresponsive at home by her with an unknown downtime (but no longer than 2 hours per review of the outside hospital record) with presumed overdose at this time vs possible seizure. Seizure activity was noted on the ambulance transport from [facility] ER to [facility] ICU. She was initially loaded with keppra and continued on keppra 500 mg IV BID. Over the past two days patient has been difficult to wean from sedation, becoming agitated with weaning to light propofol and increasing precedex infusion. This morning while on propofol and precedex, she had repetitive jaw movements and head was turned to the patient's right. Relieved with 2 mg of IV ativan. Keppra was increased to 1000 mg BID. With possible seizure activity, tele-railroad car cleaner recommended transfer for higher level of care and neurology consultation. Discussed with neurology at [facility] who thought it just might be a bit early with increased dose of keppra today, but would consider further evaluation with EEG for possible seizure activity. Discussed with Dr. Jarvis whom accepted patient for transfer to [facility] ICU. Please see below for additional details of her hospitalization. 1. Undifferentiated, likely hypovolemic rather than septic, shock - shock now improved, was on levophed at the time of transfer from [facility]. Now has been off of pressors for >24 hours, now slightly hypertensive. - no obvious infection, normal WBC. CXR with no pneumonia. Monitored off antibiotics initially. Increase in WBC today to 11K, and started on zosyn, presumed aspiration as discussed below. - appreciate tele-railroad car cleaner consultation / management. - UA mildly positive, reflexed for culture now growing light herzog-sensitive E. coli. Given no fever or leukocytosis and improving vitals she was monitored off antibiotics. Zosyn was started on 05/18 for possible aspiration, increase in WBC to 11.2, which will cover any urine infection as well. - Patient in review of documentation did have <1 minute of CPR. troponin was checked shortly after arrival here and was negative. EKG showed no evidence of acute ischemia and clincally had no signs of heart failure. Given presumed respiratory arrest echo was not performed. 2. presumed toxic encephalopathy and acute respiratory failure with hypoxia - failed sedation vacation today with continued agitation. Suspect polypharmacy related with withdrawal, although unable to obtain reliable history. - keep O2 sats above 90%. - sedation with propofol (try to lower), precedex, and fentanyl pushes for now. Consider fentanyl infusion if too frequent IVP. - does seem to have purposeful movements at times, attempting to remove tube, anoxia is felt to be less likely though a possibility. - discussed with neurologt as noted above. - urine drug screen as discussed in HPI, with multiple substances though patient is prescribed most of these at home. - tele-railroad car cleaner added 50 mg of seroquel BID morning of 05/18 as well to help with agitation. 3. Reported seizure activity - unclear if previously known seizures. May be related to ingestion as well, or possible drug withdrawal. - received loading dose, initially for the first 2 days of admission was on 500 mg IV BID, increased to 1000 mg BID on 05/18 AM after above seizure activity. - CK mildly elevated at 251, though not checked at OSH would suspect higher theoretically if seizing. - initial head CT on arrival to [facility] showed no bleeding or acute findings. 4. HTN - resumed amlodipine 05/17, added back metoprolol IR 05/17 as well via feeding tube. Holding lisinopril. Dispo: Transfer to [facility], ICU railroad car cleaner Dr. Jarvis accepting. I spent 45 minutes providing critical care management this patient. This excludes time spent in performing separately billed procedures. Time Spent with Patient Time spent: Greater than 30 minutes Exam Vital Signs (past 8 hours): - 05/18/24 06:00 05/18/24 06:00 05/18/24 07:00 Pulse Rate 73 Respiratory Rate 19 Blood Pressure 145/81 H Pulse Oximetry 93 Oxygen Delivery Method Mechanical Ventilation 05/18/24 11:00 Pulse Rate Respiratory Rate Blood Pressure Pulse Oximetry Oxygen Delivery Method Mechanical Ventilation Fraction of Inspired Oxygen 40 Oxygen Delivery Method Mechanical Ventilation Narrative Exam Narrative: Gen: intubated, sedated ENT: ETT in place CV: RRR no m/r/g Pulm: CTA though ventilated Ext: no edema Objective Labs 05/18/24 04:08 05/18/24 04:08 Labs: Laboratory Results - last 24 hr 05/18/24 04:08 WBC 11.2 H D RBC 4.35 Hgb 12.1 Hct 36.6 MCV 84.1 MCH 27.9 MCHC 33.1 RDW 13.2 Plt Count 191 Neut % (Auto) 77.8 H Lymph % (Auto) 10.4 L [place] % (Auto) 6.0 Eos % (Auto) 5.0 H Baso % (Auto) 0.8 Neut # (Auto) 8700 H Lymph # (Auto) 1200 [place] # (Auto) 700 Eos # (Auto) 600 H Baso # (Auto) 100 Sodium 140 Potassium 2.8 L Chloride 107 Carbon Dioxide 29 BUN 7 Creatinine 0.61 Estimated GFR > 60 BUN/Creatinine Ratio 11.5 Glucose 139 H Calcium 9.5 Magnesium 1.6 Total Bilirubin 0.4 AST 20 ALT 14 Alkaline Phosphatase 76 Total Protein 6.6 Albumin 3.8 Globulin 2.8 Albumin/Globulin Ratio 1.4 [facility] Medical History Depression (08/24/02) Hepatitis C, chronic (04/11/02) Social History household members: spouse and children Discharge Plan Discharge Plan Patient Disposition: [facility] Provider Discharge Comment: Please see transfer summary. Discharge Health Status Multidrug resistant organism: No MDRO Precautions: [place] Diet/Activity/Treatments Diet: Tube Feeding Diet comment: Pivot 1.5, goal tube feeds 30 cc per hour per dietary recommendations. Activity: n/a Discharge Data Primary Care Provider: Andrew Kellogg
--- NOTE | 2024-05-18 15:53 | PC.NURSE ---
1530 Pt loaded for transport, all sedation gtts went with pt for transport, no belongings at bedside. , Adam notified of pending transport. Report card to WILBERTO Heard at [facility]. No further pt contact at this time
== END 2024-05-18 15:30 | disposition short-term general hospital (02) | DRG 133 ==
PROVIDERS: Internal Medicine; Internal Medicine Critical Care Medicine; Admitting Provider Internal Medicine; Family Provider Registered Nurse Women's Health Care, Ambulatory; PCP Emergency Medicine; Referring Provider Internal Medicine; Visit Provider Internal Medicine
DX: J96.01 Acute respiratory failure with hypoxia (principal); R57.1 Hypovolemic shock; R56.9 Unspecified convulsions; F32.A Depression, unspecified; I10 Essential (primary) hypertension; F19.239 Other psychoactive substance dependence with withdrawal, unspecified; T50.901A Poisoning by unspecified drugs, medicaments and biological substances, accidental (unintentional), initial encounter; G92.8 Other toxic encephalopathy
CPT/HCPCS: 36415; 36600; 70450; 71045; 80053; 80329; 81001; 82550; 82805; 82962; 83735; 84484; 85025; 85027; 85610; 85730; 87040; 87070; 87077; 87086; 87147; 87186; 87205; 87797; 94002; 94003; 94799; G0480; J1642; J1953; J2060; J2470; J2543; J2704; J3010; J3475

== ENCOUNTER 2024-06-18 15:57 | Inpatient (IN) | payer OTHER, MEDICAID, SELFPAY ==
[2024-05-16 07:44] VITALS: BMI 22.4
[2024-05-18 12:38] VITALS: PULSE 69; RESP 18; O2SAT 95
[2024-06-18] VITALS (13 sets, daily range): BP systolic 102–143; BP diastolic 56–99; PULSE 91–102; RESP 14–22; TEMP 37.1–37.2; O2SAT 91–100; BMI 18.6
--- NOTE | 2024-06-18 16:20 | DI.RAD.S_ITS ---
PROCEDURE: XR HIP W PEL IF DONE RT 2V INDICATIONS: GLF, R HIP PAIN TECHNIQUE: AP pelvis with lateral view(s) of the right hip(s). COMPARISON: None. FINDINGS: Bones: Moderately comminuted, displaced fracture of the intertrochanteric region of the right proximal femur. Pelvic ring appears intact. No suspicious bony lesions. Soft tissues: The visualized bowel gas pattern is normal. No suspicious soft tissue calcifications. IMPRESSION: Moderately comminuted, displaced intertrochanteric right femoral neck fracture. Dictated by: Orion Cardona M.D. on 06/18/2024 at 16:00 Approved by: Orion Cardona M.D. on 06/18/2024 at 16:01
--- NOTE | 2024-06-18 16:39 | DI.CT.S_ITS ---
PROCEDURE: CT HEAD/BRAIN WO CON INDICATIONS: glf, head injury TECHNIQUE: Noncontrast 4.5 mm thick angled axial sections acquired from the foramen magnum to the vertex, with coronal and sagittal reformats. For radiation dose reduction, the following was used: automated exposure control, adjustment of mA and/or kV according to patient size. COMPARISON: [facility], CT, CT HEAD/BRAIN WO CON, 05/16/2024, 3:50. FINDINGS: Image quality: Diagnostic. CSF spaces: Basal cisterns are patent. No extra-axial fluid collections. Ventricles are normal in size and shape. Brain: No midline shift. No intracranial masses or hemorrhage. Gonsalez-white matter interface is normal. There are atherosclerotic calcifications of the intracranial segments of the internal carotid arteries. Skull and face: Calvarium and visualized facial bones are intact, without suspicious lesions. Sinuses: Visualized sinuses and mastoids are clear. IMPRESSION: No acute intracranial pathology. No acute calvarial fracture. Dictated by: Orion Cardona M.D. on 06/18/2024 at 17:25 Approved by: Orion Cardona M.D. on 06/18/2024 at 17:26
--- NOTE | 2024-06-18 16:43 | DI.RAD.S_ITS ---
PROCEDURE: XR CHEST 1V INDICATIONS: pre-op TECHNIQUE: One view of the chest was acquired. COMPARISON: [facility], CR, XR CHEST 1V, 05/18/2024, 6:24. FINDINGS: Surgical changes and devices: None. Lungs and pleura: Lungs are clear. No pleural effusions or pneumothorax. Mediastinum: Mediastinal contours appear normal. Heart size is normal. Bones and chest wall: No suspicious bony lesions. Overlying soft tissues appear unremarkable. IMPRESSION: No acute cardiopulmonary abnormality is seen. Dictated by: Orion Cardona M.D. on 06/18/2024 at 17:24 Approved by: Orion Cardona M.D. on 06/18/2024 at 17:24
--- NOTE | 2024-06-18 16:59 | ED.LOWEXIN ---
HPI - Extremity Injury (Lower) General Chief Complaint: Extremity Injury, Lower Stated Complaint: GLF, Hip Injury Time Seen by Provider: 06/18/24 16:13 Source: patient and family Mode of arrival: Wheelchair History of Present Illness HPI Narrative: 48yoF with PMH drug abuse, depression, hypertension presents from home by private vehicle for left hip pain. Of note, patient discharged from [facility] 3 weeks ago for respiratory failure requiring intubation. At the time of transfer respiratory failure presumed to polysubstance use. Patient last night tripped and fell, hitting a doorframe and then her head. Patient states at that time she heard a crack. patient has since been unable to bear weight on her L leg Related Data Home Medications Medication Instructions Recorded Confirmed amlodipine 10 mg tablet 10 mg PO DAILY 05/16/24 05/16/24 buprenorphine 8 mg-naloxone 2 mg 2.5 film sublingual DAILY 05/16/24 05/16/24 sublingual film (Suboxone) clonazepam 1 mg tablet 1 mg PO BID 05/16/24 05/16/24 lisinopril 40 mg tablet 40 mg PO DAILY 05/16/24 05/16/24 methotrexate sodium 5 mg tablet 15 mg PO QWEEK 05/16/24 05/16/24 (Trexall) methylphenidate HCl 20 mg tablet 20 mg PO BID 05/16/24 05/16/24 metoprolol succinate 100 mg 100 mg PO DAILY 05/16/24 05/16/24 tablet,extended release 24 hr venlafaxine 150 mg 150 mg PO DAILY 05/16/24 05/16/24 capsule,extended release 24 hr venlafaxine 75 mg capsule,extended 75 mg PO DAILY 05/16/24 05/16/24 release 24 hr Allergies Allergy/AdvReac Type Severity Reaction Status Date / Time No Known Allergies Allergy Verified 06/18/24 16:11 Patient History Medical History Depression (08/24/02) Hepatitis C, chronic (04/11/02) Social History household members: spouse and children Smoking Status: Never smoker Smoking Status: Never smoker alcohol intake frequency: a few times a month Substance Use Type: does not use Exam Initial Vital Signs Initial Vital Signs: Vital Signs Temperature 99 F 06/18/24 16:04 Pulse Rate 102 H 06/18/24 16:04 Respiratory Rate 20 06/18/24 16:04 Blood Pressure 102/66 06/18/24 16:04 Pulse Oximetry 100 06/18/24 16:04 Oxygen Delivery Method Room Air 06/18/24 16:04 Const: Awake, alert, appears intoxicated, chronically unwell, older than stated age Cardiac: tachycardia, regular rhythm RESP: unlabored, clear bilaterally, no wheezing MSK: LLE shortened, motion limited due to pain Skin: Warm, Dry, intact, no rashes Neuro: AO x2, CN II-XII grossly intact, moves all extremities Course Orders Ordered: ED Orders 06/18/24 16:20 XR hip w pel if done RT 2V Stat 06/18/24 16:39 CT head/brain wo con Stat 06/18/24 16:43 Chest [XR chest 1V] Stat 06/18/24 17:00 CBC Auto Diff [Complete Blood Count AUTO DIFF] Stat CMP [Comprehensive Metabolic Panel] Stat Ethanol (ETOH) Stat PT [Prothrombin Time INR] Stat Type and Screen Stat 06/18/24 17:25 UA Complete [Urinalysis and Microscopic] Stat Urine Drug Screen, Rapid Stat 06/18/24 17:40 CT pelvis wo con Stat Hydromorphone HCl (Hydromorphone 0.5 Mg Inj) 0.5 mg IV Q2H PRN PRN Reason: Pain, Severe (7-10) Dextrose/Sodium Chloride (Dextrose 5%-0.9% Ns) 1,000 mls @ 100 mls/hr IV CONT SHE Naloxone HCl (Naloxone 0.4 Mg/Ml Vial) 0.2 mg IV Q2MIN PRN PRN Reason: Opiate Reversal Ondansetron HCl (Ondansetron 4 Mg/2 Ml Inj) 4 mg IV Q8HR PRN PRN Reason: Nausea And Vomiting Sennosides (Sennosides 8.6 Mg Tablet) 17.2 mg PO BEDTIME SHE Discontinued Medications Morphine Sulfate (Morphine 4 Mg/Ml Inj) 4 mg IV NOW ONE Stop: 06/18/24 16:45 Vital Signs Vital signs: Vital Signs - 8 hr 06/18/24 16:04 06/18/24 16:17 06/18/24 16:18 Temperature 99 F Pulse Rate 102 H 102 H 99 H Respiratory Rate 20 Blood Pressure 102/66 Pulse Oximetry 100 96 96 Oxygen Delivery Method Room Air 06/18/24 16:18 06/18/24 16:30 06/18/24 16:30 Temperature Pulse Rate 101 H Respiratory Rate Blood Pressure 117/62 111/66 Pulse Oximetry 98 Oxygen Delivery Method 06/18/24 17:07 06/18/24 17:11 06/18/24 17:19 Temperature Pulse Rate 96 H Respiratory Rate Blood Pressure 118/79 Pulse Oximetry 98 95 Oxygen Delivery Method 06/18/24 17:19 06/18/24 17:30 06/18/24 17:31 Temperature Pulse Rate 93 H 93 H Respiratory Rate 14 22 Blood Pressure 113/76 Pulse Oximetry 91 Oxygen Delivery Method 06/18/24 17:31 06/18/24 17:44 06/18/24 17:44 Temperature Pulse Rate 93 H Respiratory Rate Blood Pressure 113/56 L 143/88 H Pulse Oximetry 98 Oxygen Delivery Method MDM - Extremity Injury (Lower) Lab Data 06/18/24 17:00 06/18/24 17:00 Labs: Lab Results 06/18/24 06/18/24 06/18/24 Range/Units 17:00 17:25 17:25 WBC 9.9 (4.5-11.0) X10^3/uL RBC 3.40 L (4.0-5.2) X10^6/uL Hgb 9.9 L (12.0-16.0) g/dL Hct 29.4 L (36-46) % MCV 86.4 (80-100) fL MCH 29.2 (26-34) PG MCHC 33.8 (30-36) % RDW 14.8 (11.6-14.8) % Plt Count 271 (150-400) X10^3/uL Neut % (Auto) 85.8 H (50-75) % Lymph % (Auto) 5.7 L (25-40) % [place] % (Auto) 8.4 (3-14) % Eos % (Auto) 0.0 L (2-4) % Baso % (Auto) 0.1 (0-2) % Neut # (Auto) 8400 H (1895-0762) /uL Lymph # (Auto) 600 L (5076-5069) /uL [place] # (Auto) 800 (0-900) /uL Eos # (Auto) 0 (0-450) /uL Baso # (Auto) 0 (0-100) /uL PT 11.5 (9.4-12.5) SECONDS INR 1.0 (0.9-1.3) Sodium 139 (137-145) mmol/L Potassium 4.5 (3.4-5.1) mmol/L Chloride 105 (98-107) mmol/L Carbon Dioxide 30 (22-32) mmol/L BUN 27 H (7-17) mg/dL Creatinine 1.33 H (0.52-1.04) mg/dL Estimated GFR 49 L (>60) mL/min BUN/Creatinine Ratio 20.3 (6-22) Glucose 117 H (70-100) mg/dL Calcium 9.6 (8.4-10.2) mg/dL Total Bilirubin 0.6 (0.2-1.3) mg/dL AST 119 H (14-36) IU/L ALT 43 H (<35) IU/L Alkaline Phosphatase 87 (38-126) U/L Total Protein 7.1 (6.3-8.2) g/dL Albumin 4.0 (3.5-5.0) g/dL Globulin 3.1 (1.7-4.1) g/dL Albumin/Globulin Ratio 1.3 (1.0-2.8) Urine Color Yellow Urine Appearance Cloudy Urine pH 5.5 Normal (4.5-8.0) Ur Specific [place] >=1.030 H (1.000-1.035) Urine Protein Trace H (Negative) Urine Glucose (UA) Negative (Negative) g/dL Urine Ketones Negative (NEGATIVE) Urine Occult Blood Trace-intact (Negative) Urine Nitrate Negative (Negative) Urine Bilirubin Negative (NEGATIVE) Urine Urobilinogen 0.2 (0.2) E.U./dL Ur Leukocyte Esterase Negative (NEGATIVE) Urine RBC 0-1/hpf (0-5/HPF) Urine WBC 0-1/hpf (0-5/HPF) Ur Squamous Epith Cells 0-1 /hpf (0-5/HPF) Amorphous Sediment 3+ Urine Bacteria Occasional (0-1) (None) Hyaline Casts 0-1/lpf (None) Ur Culture Indicated? Cult not indicated Vol Urine Centrifuged Low vol <1ml unspun A U Opiates 300ng/mL cut Negative (Negative) Ur Oxycodone Screen Negative (Negative) Urine Methadone Screen Negative (Negative) Ur Barbiturates Screen Negative (Negative) U Tricyclic Antidepress Negative (Negative) Ur Phencyclidine Scrn Negative (Negative) Ur Amphetamines Screen Positive H (Negative) U Methamphetamines Scrn Positive H (Negative) Ur MDMA Scrn (Ecstasy) Positive H (Negative) U Benzodiazepines Scrn Negative (Negative) Urine Cocaine Screen Negative (Negative) U Marijuana (THC) Screen Negative (Negative) Urine Specific [place] Normal (Normal) Ethyl Alcohol < 10 ( - 10) mg/dL Ur Creatinine Normal (Normal) Imaging Data Extremity x-ray #1: Radiologist's Impression: PROCEDURE: XR HIP W PEL IF DONE RT 2V INDICATIONS: GLF, R HIP PAIN TECHNIQUE: AP pelvis with lateral view(s) of the right hip(s). COMPARISON: None. FINDINGS: Bones: Moderately comminuted, displaced fracture of the intertrochanteric region of the right proximal femur. Pelvic ring appears intact. No suspicious bony lesions. Soft tissues: The visualized bowel gas pattern is normal. No suspicious soft tissue calcifications. IMPRESSION: Moderately comminuted, displaced intertrochanteric right femoral neck fracture. Dictated by: Orion Cardona M.D. on 06/18/2024 at 16:00 Approved by: Orion Cardona M.D. on 06/18/2024 at 16:01 [facility] Narrative Medical decision making narrative: Ground level fall, unable to bear weight on left hip. Patient discharged 3 weeks ago from [facility], records requested for review since patient was only recently discharged. Records from [facility] reviewed, patient thought to have seizure-like activity, possibly secondary to drug use. X-ray shows left intertrochanteric hip fracture. Preliminary review of CT brain negative for acute findings.Tox screen positive for amphetamines and MDMA. Snow placed for comfort due to immobilization. Orthopedic surgery consulted for evaluation, they will review the patient, requested admit to medicine. Discharge Plan Departure Patient Disposition: Admitted As Inpatient Clinical Impression: Closed intertrochanteric fracture of left femur, Polysubstance abuse Admit Date/Time: 06/18/24 17:51 Admit Provider: Octavio Rodriguez
[2024-06-18 17:12] LABS: Add Manual Diff / Slide Review NO; Basophils Absolute Auto 0 /uL (0-100); Basophils Percent Auto 0.1 % (0-2); Eosinophils Absolute Auto 0 /uL (0-450); Hematocrit 29.4 % (36-46); Hemoglobin 9.9 g/dL (12.0-16.0); Lymphocytes Absolute Auto 600 /uL (1100-4500); Lymphocytes Percent Auto 5.7 % (25-40); Mean Corpuscular HGB Conc 33.8 % (30-36); Mean Corpuscular Hemoglobin 29.2 PG (26-34); Mean Corpuscular Volume 86.4 fL (80-100); Monocytes Absolute Auto 800 /uL (0-900); Monocytes Percent Auto 8.4 % (3-14); Neutrophils Absolute Auto 8400 /uL (1500-7000); Neutrophils Percent Auto 85.8 % (50-75); Platelet Count 271 X10^3/uL (150-400); Red Cell Distribution Width 14.8 % (11.6-14.8); White Blood Cell Count 9.9 X10^3/uL (4.5-11.0)
[2024-06-18 17:25] LABS: Alanine Aminotransferase 43 IU/L (<35); Albumin Globulin Ratio 1.3 (1.0-2.8); Alkaline Phosphatase 87 U/L (38-126); Aspartate Aminotransferase 119 IU/L (14-36); BUN Creatinine Ratio 20.3 (6-22); Bilirubin Total 0.6 mg/dL (0.2-1.3); Blood Urea Nitrogen 27 mg/dL (7-17); Calcium 9.6 mg/dL (8.4-10.2); Carbon Dioxide 30 mmol/L (22-32); Chloride 105 mmol/L (98-107); Estimated Glomerular Filt Rate 49 mL/min (>60); Globulin 3.1 g/dL (1.7-4.1); Glucose 117 mg/dL (70-100); HEMOLYSIS 23 (0-50); Potassium 4.5 mmol/L (3.4-5.1); Sodium 139 mmol/L (137-145); Total Protein 7.1 g/dL (6.3-8.2)
[2024-06-18 17:26] LABS: Ethanol (ETOH) < 10 mg/dL
[2024-06-18 17:37] LABS: Prothrombin Time 11.5 SECONDS (9.4-12.5)
[2024-06-18 17:39] LABS: Appearance Urine UA CLOUDY; Bilirubin Urine UA NEGATIVE (NEGATIVE); Color Urine UA YELLOW; Glucose Urine UA NEGATIVE (Negative); Ketones Urine UA NEGATIVE (NEGATIVE); Leukocyte Esterase Urine UA NEGATIVE (NEGATIVE); Nitrite Urine UA NEGATIVE (Negative); Occult Blood Urine UA TRACE-INTACT (Negative); Protein Urine UA TRACE (Negative); Specific Gravity Urine UA >=1.030 (1.000-1.035); Urobilinogen Urine UA 0.2 E.U./dL (0.2)
--- NOTE | 2024-06-18 17:40 | DI.CT.S_ITS ---
PROCEDURE: CT PEL WO CON INDICATIONS: R INTERTROCH FX, PREOP PLANNING TECHNIQUE: Noncontrast 3 mm axial sections acquired through the bony pelvis, with coronal and sagittal reformatting. COMPARISON: [facility], CR, XR HIP W PEL IF DONE RT 2V, 06/18/2024, 16:20. FINDINGS: Image quality: Diagnostic. Bones: Severely comminuted fracture of the intertrochanteric region of the right femoral neck. There is mild impaction and medial angulation of the major distal fracture fragment. Femoral head contour remains round and smooth. Mild degenerative changes of the right femoroacetabular joint. Visualized portions of the pelvic ring appear intact. Lower lumbar spondylosis. Soft tissues: Mild soft tissue swelling overlying right femoral neck fracture. No substantial joint effusion visualized. Intraperitoneal structures of the pelvis appear unremarkable. Urinary bladder is decompressed by Snow catheter. No pelvic adenopathy. IMPRESSION: Severely comminuted fracture of the intertrochanteric region of the right femoral neck. Dictated by: Orion Cardona M.D. on 06/18/2024 at 17:26 Approved by: Orion Cardona M.D. on 06/18/2024 at 17:29
[2024-06-18 17:42] LABS: Ur Creatinine Normal (Normal); Ur Specific Gravity Normal (Normal); Urine pH Normal (Normal); pH Urine UA 5.5 (4.5-8.0)
[2024-06-18 17:43] LABS: UR Morphine/Opiate cutoff 300 Negative (Negative); Urine Amphetamines Positive (Negative); Urine Barbiturates Negative (Negative); Urine Benzodiazepines Negative (Negative); Urine Cocaine Negative (Negative); Urine MDMA Positive (Negative); Urine Methadone Negative (Negative); Urine Methamphetamines Positive (Negative); Urine Oxycodone Negative (Negative); Urine Phencyclidine Negative (Negative); Urine Tetrahydrocannabinol Negative (Negative); Urine Tricyclic Antidepressant Negative (Negative)
[2024-06-18 17:47] LABS: Amorphous Sediment Urine 3+; Bacteria Urine Occasional (0-1); Culture Indicated Urine Cult Not Indicated; Hyaline Casts Urine 0-1/LPF; RBC Urine 0-1/HPF (0-5/HPF); Squamous Epithelial Cell Urine 0-1 /HPF (0-5/HPF); Urine Volume Low Vol <1mL unspun; WBC Urine 0-1/HPF (0-5/HPF)
--- NOTE | 2024-06-18 17:52 | PC.NURSE ---
late entry, at 1620 upon nursing assessment pt found to be confused. Slow to answer questions, alert and oriented to self but does not know where she is or what year it is. Head CT ordered. Respirations observed and WNL, capnography placed on pt for concerns of AMS. Will continue to monitor for any changes.
--- NOTE | 2024-06-18 18:09 | PM.HP.1 ---
History of Present Illness History of Present Illness Date Patient Seen: 06/18/24 Time Patient Seen: 18:09 Chief complaint: GLF, Hip Injury Narrative: The patient is a 48-year-old female with a history of drug abuse, hepatitis-C, depression, and hypertension. She was brought from her home by private vehicle for left hip pain after falling. She was recently admitted and discharged from [facility] several weeks ago for respiratory failure and apparently was intubated at that time. The patient tripped last night and fell injuring her hip. In the emergency department she was found to have a hip fracture. Orthopedics was called and they will see her for operative repair. She will be nothing by mouth at midnight. She is lethargic and does not really interact her speak. Her notes that she takes clonazepam and unknown quantity every day as well as Suboxone is occasionally and methamphetamines. He really can not quantify what, when, or how much she was taken. She was saturating fine was not hypoxemic. She did have a end tidal CO2 of 55-60 which would isolate. She was able to open her eyes and acknowledge my presence. No additional history is available. She lives in [place] with her and 1 additional family member. She drinks about 3 oz of alcohol a day. [facility] Medical History Depression (08/24/02) Hepatitis C, chronic (04/11/02) Social History household members: spouse and children Smoking Status: Never smoker Meds Home Medications and Allergies Home Medications Medication Instructions Recorded Confirmed Type amlodipine 10 mg tablet 10 mg PO DAILY 05/16/24 05/16/24 History buprenorphine 8 mg-naloxone 2 mg 2.5 film sublingual DAILY 05/16/24 05/16/24 History sublingual film (Suboxone) clonazepam 1 mg tablet 1 mg PO BID 05/16/24 05/16/24 History lisinopril 40 mg tablet 40 mg PO DAILY 05/16/24 05/16/24 History methotrexate sodium 5 mg tablet 15 mg PO QWEEK 05/16/24 05/16/24 History (Trexall) methylphenidate HCl 20 mg tablet 20 mg PO BID 05/16/24 05/16/24 History metoprolol succinate 100 mg 100 mg PO DAILY 05/16/24 05/16/24 History tablet,extended release 24 hr venlafaxine 150 mg 150 mg PO DAILY 05/16/24 05/16/24 History capsule,extended release 24 hr venlafaxine 75 mg capsule,extended 75 mg PO DAILY 05/16/24 05/16/24 History release 24 hr Allergies Allergy/AdvReac Type Severity Reaction Status Date / Time No Known Allergies Allergy Verified 06/18/24 16:11 Review of Systems Review of Systems Narrative: ROS not obtainable due to her lethargy and lack of participation. Exam Vital Signs (past 8 hours): - 06/18/24 16:04 06/18/24 16:17 06/18/24 16:18 Temperature 99 F Pulse Rate 102 H 102 H 99 H Respiratory Rate 20 Blood Pressure 102/66 Pulse Oximetry 100 96 96 Oxygen Delivery Method Room Air 06/18/24 16:18 06/18/24 16:30 06/18/24 16:30 Temperature Pulse Rate 101 H Respiratory Rate Blood Pressure 117/62 111/66 Pulse Oximetry 98 Oxygen Delivery Method 06/18/24 17:07 06/18/24 17:11 06/18/24 17:19 Temperature Pulse Rate 96 H Respiratory Rate Blood Pressure 118/79 Pulse Oximetry 98 95 Oxygen Delivery Method 06/18/24 17:19 06/18/24 17:30 06/18/24 17:31 Temperature Pulse Rate 93 H 93 H Respiratory Rate 14 22 Blood Pressure 113/76 Pulse Oximetry 91 Oxygen Delivery Method 06/18/24 17:31 06/18/24 17:44 06/18/24 17:44 Temperature Pulse Rate 93 H Respiratory Rate Blood Pressure 113/56 L 143/88 H Pulse Oximetry 98 Oxygen Delivery Method Oxygen Delivery Method Room Air Narrative Exam Narrative: Older than stated age, no acute distress, shaking. She opens her eyes and looks at me occasionally while I am in the room but does not speak. Normocephalic skull, EOMI, anicteric sclera, symmetric pupils. Oropharynx unremarkable, no droop. Neck supple, midline trachea, no adenopathy. Lungs clear, normal rate and effort. Heart regular, no murmur gallop or rub. Abdomen is soft, non distended and non tender. Extremities are free of edema. Skin is free of rash or lesions. Joints are not swollen or deformed. Objective Imaging Multiple studies:: Radiologist's impression: CT brain: normal by my read. IMPRESSION: No acute intracranial pathology. No acute calvarial fracture. Chest x-ray: normal by my read. No acute cardiopulmonary abnormality is seen. Pelvis CT: IMPRESSION: Severely comminuted fracture of the intertrochanteric region of the right femoral neck. Hip x-ray: Moderately comminuted, displaced intertrochanteric right femoral neck fracture. Labs 06/18/24 17:00 06/18/24 17:00 Labs: Laboratory Results - last 24 hr 06/18/24 06/18/24 06/18/24 17:00 17:25 17:25 WBC 9.9 RBC 3.40 L Hgb 9.9 L Hct 29.4 L MCV 86.4 MCH 29.2 MCHC 33.8 RDW 14.8 Plt Count 271 Neut % (Auto) 85.8 H Lymph % (Auto) 5.7 L [place] % (Auto) 8.4 Eos % (Auto) 0.0 L Baso % (Auto) 0.1 Neut # (Auto) 8400 H Lymph # (Auto) 600 L [place] # (Auto) 800 Eos # (Auto) 0 Baso # (Auto) 0 PT 11.5 INR 1.0 Sodium 139 Potassium 4.5 Chloride 105 Carbon Dioxide 30 BUN 27 H Creatinine 1.33 H Estimated GFR 49 L BUN/Creatinine Ratio 20.3 Glucose 117 H Calcium 9.6 Total Bilirubin 0.6 AST 119 H ALT 43 H Alkaline Phosphatase 87 Total Protein 7.1 Albumin 4.0 Globulin 3.1 Albumin/Globulin Ratio 1.3 Urine Color Yellow Urine Appearance Cloudy Urine pH 5.5 Normal Ur Specific [place] >=1.030 H Urine Protein Trace H Urine Glucose (UA) Negative Urine Ketones Negative Urine Occult Blood Trace-intact Urine Nitrate Negative Urine Bilirubin Negative Urine Urobilinogen 0.2 Ur Leukocyte Esterase Negative Urine RBC 0-1/hpf Urine WBC 0-1/hpf Ur Squamous Epith Cells 0-1 /hpf Amorphous Sediment 3+ Urine Bacteria Occasional (0-1) Hyaline Casts 0-1/lpf Ur Culture Indicated? Cult not indicated Vol Urine Centrifuged Low vol <1ml unspun A U Opiates 300ng/mL cut Negative Ur Oxycodone Screen Negative Urine Methadone Screen Negative Ur Barbiturates Screen Negative U Tricyclic Antidepress Negative Ur Phencyclidine Scrn Negative Ur Amphetamines Screen Positive H U Methamphetamines Scrn Positive H Ur MDMA Scrn (Ecstasy) Positive H U Benzodiazepines Scrn Negative Urine Cocaine Screen Negative U Marijuana (THC) Screen Negative Urine Specific [place] Normal Ethyl Alcohol < 10 Ur Creatinine Normal Assessment & Plan Assessment & Plan narrative: 1. Right femoral neck fracture, present on admission and active. 2. Ground level fall, present on admission and active. 3. Hepatitis-C, present on admission and active. 4. Pathologic fracture secondary to osteoporosis, present on admission and active. 5. Polysubstance abuse (methamphetamines, Suboxone, clonazepam, and alcohol), present on admission and active. 6. Anemia, which may be chronic or related to blood loss from fracture. Present on admission and active. 7. MÓNICA with creatinine 1.33, present on admission and active. 8. Hypertension, present on admission and active. PLAN: -NPO at midnight. -pain medications. -orthopedics consult is placed in the ED, ORIF likely tomorrow. -monitor for signs of agitation or withdrawal. -monitor hemoglobin. -start aspirin 81 b.i.d. for prophylaxis postoperatively. -hydromorphone for pain -lorazepam for agitation -need to monitor her mental status and general stability carefully with these medications. Full resuscitation Inpatient status as her calorie require at least 2 midnights of hospital care. is proxy decision maker. Time-Based Coding :: 35 min spent with patient and on the chart (including review of chart, obtaining history, exam, reviewing outside data, placing orders, documenting exam and treatment plan, and counseling patient) on 06/18. Quality MIPS - Admit I confirm the patient?s Advance Care Plan is present, Code status is documented, Surrogate decision maker is in patient?s record [If Yes, STOP here]: Yes MIPS - Meds 'Current medications' to include all prescriptions, [id number] products, herbals, cannabis/cannabidiol products, and vitamin/mineral/dietary (nutritional) supplements. I have utilized all available resources to obtain, update, or review the patient?s current medications. [If Yes, STOP here]: Yes
[2024-06-18] MEDS: ACETAMINOPHEN IV 1,000 MG/100 ML VIAL 400 MG IV (18:35)
--- NOTE | 2024-06-18 18:41 | PC.NURSE ---
Dr. Rodriguez at bedside. Pt still drowsy opening eyes when spoken to, pt's speech is mumbled, IV acetaminophen administered. IV morphine held due to pt's mental status. Dr. Lombardo and Dr. Rodriguez aware.
[2024-06-18] MEDS: DEXTROSE 5%-0.9% NS 1,000 ML 100 ML IV (20:18)
--- NOTE | 2024-06-18 22:12 | PC.NURSE ---
Addendum entered by Suzie Marx R.N. 06/18/24 22:50: Patient awoke from sleep, stating that she felt scared but is oriented to self, place, & time. Denies CP, nausea, SOB. Reports 8/10 pain in right leg, medicated as ordered. Spoke with patient about situation and plan of care, patient verbalized understanding. Patient spoke with (Adam) on the phone. Currently having a snack. Oriented to call-light, plan of care ongoing. Original Note: shift coordinator: Patient arrived onto floor approximately 1850, accompanied by (Adam). Patient appears fatigued; currently resting in bed w/ eyes closed, breathing unlabored. Responsive to voice, although will not answer questions completely. VSS, O2 saturation 98% on RA. Snow in place draining clear, yellow urine. IVF infusing as ordered. Plan of care ongoing.
[2024-06-18] MEDS: HYDROMORPHONE 0.5 MG INJ IV (22:43)
[2024-06-19] VITALS (22 sets, daily range): BP systolic 112–183; BP diastolic 70–110; PULSE 72–99; RESP 11–18; TEMP 36.3–37.8; O2SAT 91–100; BMI 18.6
--- NOTE | 2024-06-19 | DI.RAD.S_ITS ---
PROCEDURE: XR HIP W PEL IF DONE RT 2V INDICATIONS: ORIF TECHNIQUE: < 7 views of the hip were acquired. COMPARISON: [facility], CR, XR HIP W PEL IF DONE RT 2V, 06/18/2024, 16:20. FINDINGS: Bones: The intertrochanteric fracture of the right hip has been reduced to near anatomic alignment now transfixed by a gamma nail. Right hip , patellofemoral and tibiofemoral joints are normal without alignment. Soft tissues: No suspicious soft tissue calcifications or masses. IMPRESSION: ORIF right intertrochanteric fracture in near anatomic alignment Dictated by: Eusebio Sumner M.D. on 06/20/2024 at 8:03 Approved by: Eusebio Sumner M.D. on 06/20/2024 at 8:05
[2024-06-19] MEDS: DEXTROSE 5%-0.9% NS 1,000 ML 100 ML IV (05:53)
[2024-06-19 05:55] LABS: Add Manual Diff / Slide Review NO; Basophils Absolute Auto 0 /uL (0-100); Basophils Percent Auto 0.1 % (0-2); Eosinophils Absolute Auto 0 /uL (0-450); Eosinophils Percent Auto 0.1 % (2-4); Hematocrit 27.9 % (36-46); Hemoglobin 9.3 g/dL (12.0-16.0); Lymphocytes Absolute Auto 900 /uL (1100-4500); Lymphocytes Percent Auto 13.6 % (25-40); Mean Corpuscular HGB Conc 33.4 % (30-36); Mean Corpuscular Volume 86.9 fL (80-100); Monocytes Absolute Auto 700 /uL (0-900); Monocytes Percent Auto 10.6 % (3-14); Neutrophils Absolute Auto 5100 /uL (1500-7000); Neutrophils Percent Auto 75.6 % (50-75); Platelet Count 228 X10^3/uL (150-400); Red Blood Cell Count 3.21 X10^6/uL (4.0-5.2); Red Cell Distribution Width 14.9 % (11.6-14.8); White Blood Cell Count 6.7 X10^3/uL (4.5-11.0)
[2024-06-19 06:02] LABS: BUN Creatinine Ratio 22.3 (6-22); Blood Urea Nitrogen 25 mg/dL (7-17); Calcium 9.3 mg/dL (8.4-10.2); Carbon Dioxide 31 mmol/L (22-32); Chloride 106 mmol/L (98-107); Estimated Glomerular Filt Rate 60 mL/min (>60); Glucose 140 mg/dL (70-100); HEMOLYSIS < 15 (0-50); Potassium 4.1 mmol/L (3.4-5.1); Sodium 138 mmol/L (137-145)
--- NOTE | 2024-06-19 07:30 | PM.CN ---
History of Present Illness Consult details Date Patient Seen: 06/19/24 Time Patient Seen: 07:31 Chief complaint: GLF, Hip Injury Reason for consult: Proximal femur fracture, right Requesting provider: Fidel Mock Narrative: Female history of multiple drug use, hep C and depression, had a ground level fall into a door way on 06/18/2024 was unable to ambulate and heard a crack. Was brought to [facility] found to have a comminuted right proximal femur fracture. Orthopedic partner Dr. Mock was called assistance. The patient was admitted to the hospitalist team. Notable history was an admission to [facility] for drug overdose and respiratory failure last month. Patient lives with family in [place]. He was optimized for surgery by the Internal Medicine team was indicated for fixation of the fracture. She does some history of mildly symptomatic hip arthritis. Denies any other head arm or leg injury during her fall. She was pleasant and conversational this morning Denied fevers or chills. Meds Home Medications and Allergies Home Medications Medication Instructions Recorded Confirmed Type amlodipine 10 mg tablet 10 mg PO DAILY 05/16/24 06/18/24 History buprenorphine 8 mg-naloxone 2 mg 2.5 film sublingual DAILY 05/16/24 06/18/24 History sublingual film (Suboxone) clonazepam 1 mg tablet 1 mg PO BID 05/16/24 06/18/24 History lisinopril 40 mg tablet 40 mg PO DAILY 05/16/24 06/18/24 History methylphenidate HCl 20 mg tablet 20 mg PO BID 05/16/24 06/18/24 History metoprolol succinate 100 mg 100 mg PO DAILY 05/16/24 06/18/24 History tablet,extended release 24 hr venlafaxine 75 mg capsule,extended 75 mg PO DAILY 05/16/24 06/18/24 History release 24 hr methotrexate sodium 5 mg tablet 15 mg PO WEEKLY 06/18/24 06/18/24 History (Trexall) venlafaxine 150 mg 150 mg PO DAILY 06/18/24 06/18/24 History capsule,extended release 24 hr Allergies Allergy/AdvReac Type Severity Reaction Status Date / Time No Known Allergies Allergy Verified 06/18/24 16:11 Review of Systems Review of Systems Narrative: Hep C, depression, multiple drug use.--respiratory failure 1 month ago related to drug use ROS: Yes All systems reviewed with the patient and are negative except as otherwise documented Exam Vital Signs (past 8 hours): - 06/19/24 00:10 Temperature 97.6 F Pulse Rate 88 Respiratory Rate 18 Blood Pressure 114/70 Pulse Oximetry 96 Oxygen Flow Rate 0 Oxygen Delivery Method Room Air Oxygen Flow Rate 0 Narrative Exam Narrative: General exam was alert and oriented female in no acute distress HEENT exam normocephalic atraumatic Heart regular rate and rhythm Lungs clear to auscultation bilaterally Unlabored breathing Upper extremity is moving bilateral upper extremities without limitation Moves left lower extremity without limitation 5 of 5 dorsiflexion plantar flexion. Knee without effusion. Calf is soft. Right lower extremity demonstrates shortened and external rotated position. Wiggles toes. Dorsiflexion plantar flexion intact calf and thigh soft. Pain around the area of the hip. Remainder of motor exam deferred due to known fracture. exam, Snow in place. Objective Imaging Hip x-ray AP pelvis and right lateral hip: My impression: Comminuted intertrochanteric right femur fracture with reverse obliquity and subtrochanteric extension Labs 06/19/24 05:05 06/19/24 05:05 Labs: Laboratory Results - last 24 hr 06/18/24 06/18/24 06/18/24 17:00 17:25 17:25 WBC 9.9 RBC 3.40 L Hgb 9.9 L Hct 29.4 L MCV 86.4 MCH 29.2 MCHC 33.8 RDW 14.8 Plt Count 271 Neut % (Auto) 85.8 H Lymph % (Auto) 5.7 L Brewster % (Auto) 8.4 Eos % (Auto) 0.0 L Baso % (Auto) 0.1 Neut # (Auto) 8400 H Lymph # (Auto) 600 L Brewster # (Auto) 800 Eos # (Auto) 0 Baso # (Auto) 0 PT 11.5 INR 1.0 Sodium 139 Potassium 4.5 Chloride 105 Carbon Dioxide 30 BUN 27 H Creatinine 1.33 H Estimated GFR 49 L BUN/Creatinine Ratio 20.3 Glucose 117 H Calcium 9.6 Total Bilirubin 0.6 AST 119 H ALT 43 H Alkaline Phosphatase 87 Total Protein 7.1 Albumin 4.0 Globulin 3.1 Albumin/Globulin Ratio 1.3 Urine Color Yellow Urine Appearance Cloudy Urine pH 5.5 Normal Ur Specific [place] >=1.030 H Urine Protein Trace H Urine Glucose (UA) Negative Urine Ketones Negative Urine Occult Blood Trace-intact Urine Nitrate Negative Urine Bilirubin Negative Urine Urobilinogen 0.2 Ur Leukocyte Esterase Negative Urine RBC 0-1/hpf Urine WBC 0-1/hpf Ur Squamous Epith Cells 0-1 /hpf Amorphous Sediment 3+ Urine Bacteria Occasional (0-1) Hyaline Casts 0-1/lpf Ur Culture Indicated? Cult not indicated Vol Urine Centrifuged Low vol <1ml unspun A U Opiates 300ng/mL cut Negative Ur Oxycodone Screen Negative Urine Methadone Screen Negative Ur Barbiturates Screen Negative U Tricyclic Antidepress Negative Ur Phencyclidine Scrn Negative Ur Amphetamines Screen Positive H U Methamphetamines Scrn Positive H Ur MDMA Scrn (Ecstasy) Positive H U Benzodiazepines Scrn Negative Urine Cocaine Screen Negative U Marijuana (THC) Screen Negative Urine Specific [place] Normal Ethyl Alcohol < 10 Ur Creatinine Normal Blood Type A Positive Antibody Screen Negative 06/19/24 05:05 WBC 6.7 RBC 3.21 L Hgb 9.3 L Hct 27.9 L MCV 86.9 MCH 29.0 MCHC 33.4 RDW 14.9 H Plt Count 228 Neut % (Auto) 75.6 H Lymph % (Auto) 13.6 L Brewster % (Auto) 10.6 Eos % (Auto) 0.1 L Baso % (Auto) 0.1 Neut # (Auto) 5100 Lymph # (Auto) 900 L Brewster # (Auto) 700 Eos # (Auto) 0 Baso # (Auto) 0 PT INR Sodium 138 Potassium 4.1 Chloride 106 Carbon Dioxide 31 BUN 25 H Creatinine 1.12 H Estimated GFR 60 BUN/Creatinine Ratio 22.3 H Glucose 140 H Calcium 9.3 Total Bilirubin AST ALT Alkaline Phosphatase Total Protein Albumin Globulin Albumin/Globulin Ratio Urine Color Urine Appearance Urine pH Ur Specific [place] Urine Protein Urine Glucose (UA) Urine Ketones Urine Occult Blood Urine Nitrate Urine Bilirubin Urine Urobilinogen Ur Leukocyte Esterase Urine RBC Urine WBC Ur Squamous Epith Cells Amorphous Sediment Urine Bacteria Hyaline Casts Ur Culture Indicated? Vol Urine Centrifuged U Opiates 300ng/mL cut Ur Oxycodone Screen Urine Methadone Screen Ur Barbiturates Screen U Tricyclic Antidepress Ur Phencyclidine Scrn Ur Amphetamines Screen U Methamphetamines Scrn Ur MDMA Scrn (Ecstasy) U Benzodiazepines Scrn Urine Cocaine Screen U Marijuana (THC) Screen Urine Specific [place] Ethyl Alcohol Ur Creatinine Blood Type Antibody Screen [facility] Medical History (Updated 06/19/24 @ 07:37 by Anusha Mcintosh MD) Depression (08/24/02) Hepatitis C, chronic (04/11/02) Social History marital status: household members: spouse and children Tobacco & Substance Use Smoking Status: Never smoker Assessment & Plan Assessment and plan (1) Fracture of proximal end of right femur: Qualifiers: Encounter type: initial encounter Fracture type: closed Qualified Code(s): S72.001A - Fracture of unspecified part of neck of right femur, initial encounter for closed fracture Status: Acute Plan The patient is a 48-year-old female with a comminuted intertrochanteric femur fracture on the right with reverse obliquity. Does have some mild hip arthritis. Discussed that fracture pattern was indicated for open reduction internal fixation. Discussed use of intramedullary rachell. We discussed risks of procedure including malunion, nonunion, persistent pain, need for additional procedures, venous thromboembolism, infection, perioperative anemia. Overall the benefits of the procedure to allow early mobilization and alignment and help avoid the morbidity of prolonged immobilization outweigh the risks. The patient was indicated for orthopedic surgical fixation of her proximal femur fracture. The risks and benefits of the procedure have been discussed with the patient and given the opportunity to ask questions. The risks of surgery include but are not limited to infection, malunion, nonunion, persistence of pain, damage to nerves and blood vessels, posttraumatic arthritis, DVT, PE, cardiopulmonary complications and . The patient expressed a thorough understanding of the risks and benefits of surgery and has elected to proceed. Consent was signed. Assessment & Plan narrative: Plan for operative fixation right proximal femur fracture Time-Based Coding :: [TOTAL MINUTES] spent with patient and on the chart (including review of chart, obtaining history, exam, reviewing outside data, placing orders, documenting exam and treatment plan, and counseling patient) on [DATE].
[2024-06-19] MEDS: LACTATED RINGERS 1,000 ML 42 ML IV ×2 (07:41→10:06)
--- NOTE | 2024-06-19 07:41 | PC.NURSE ---
Report given to CLIENT DIRECTOR. Patient taken down to OR @ approximately [id number].
--- NOTE | 2024-06-19 07:43 | PM.OP.1 ---
Operative Date/Time/Diagnoses Date of procedure: 06/19/24 Time of procedure: 07:43 Pre-op diagnosis: Right proximal femur fracture/subtrochanteric femur fracture Post-op diagnosis: same Procedure & Clinicians Procedure: Open reduction internal Fixation right proximal femur fracture with intramedullary rachell CPT code 55432 Same procedure as scheduled: Yes Indications: The patient is 48-year-old female with a comminuted right proximal femur fracture. The comminuted femur fracture with reverse obliquity. She was indicated for fixation to improve alignment allow early mobilization help avoid the morbidity associated with prolonged immobilization. Risks and benefits procedure were discussed with the patient. Consent was signed. The risks and benefits of the procedure have been discussed with the patient and given the opportunity to ask questions. The risks of surgery include but are not limited to infection, malunion, nonunion, persistence of pain, damage to nerves and blood vessels, posttraumatic arthritis, DVT, PE, cardiopulmonary complications and . The patient expressed a thorough understanding of the risks and benefits of surgery and has elected to proceed. Consent was signed. Surgeon: Anusha Mcintosh Click Yes if Unassisted: Yes Anesthesia Type: General and Local Operative Notes Findings: Comminuted right proximal femur fracture with reverse obliquity Closure Type: primary Specimen(s): none sent Prosthetic devices, grafts, tissues, transplants, or devices: [employer] InterTAN long rachell 10 x 34. Lag screw an integrated compression screw 80 x 75 and interlocking screw 5 x 35 Estimated Blood Loss (mL): 150 Blood products transfused: none Tourniquet time (min): 0 Procedure in detail: Right Proximal femur fracture intramedullary nailing cpt 44181 Preoperative diagnosis: Right Intertrochanteric fracture of the femur, closed, reverse obliquity Postoperative diagnose: Right Intertrochanteric fracture of the femur, closed Implant: 10 x 34 nail Estrada [employer] Intertan , 85/75 lag screw, locking screw 5/35 Operative indications: The patient sustained a right hip fracture and was indicated for operative fixation. The risks, benefits, and alternatives of procedure were discussed at length with the patient, and they expressed understanding. These included bleeding, infection, damage to nerves, pain, malunion, nonunion, blood clots, pulmonary embolism and cardiovascular risks associated with general anesthesia. Consent was signed. Operative finding: There was a comminuted right intertrochanteric fracture with reverse obliquity and subtrochanteric extension. Reduction and internal fixation was performed with a 10 x 34, long nail. Operative procedure: The patient was seen, and site of surgery marked in the preoperative area. This was the right leg. The patient was then brought to the operating room and placed on the operative table and general anesthesia administered. The patient was positioned on the fracture table in the standard fashion with a well-padded boots and a padded peroneal post. An SCD was on the contralateral leg. A formal time-out was called to confirm the patient's side and site of surgery, administration of preoperative antibiotics. All personnel agreed. The operative leg was then gently manipulated under fluoroscopic guidance to obtain a closed reduction near anatomic alignment. There was noted to be proximal fragment flexion which was manipulatable with pressure. Additionally there was medial translation of the distal fragment so bone hook was brought into the operating room. At this point, the operative extremity was prepped and draped in the standard sterile manner. A guidewire was placed percutaneously, and the starting point obtained. A small incision was made over the guidewire. Downward pressure was held on the proximal flexed fragment and upward pressure on the distal fragment as well as a open incision of the level of the distal fracture with a bone hook was placed on the distal fragment to pull lateral to obtain reduction. An opening drill was inserted 1st just into the proximal fragment then the ball-tip guidewire was passed down to the level of the knee. Then the opening drill was passed again to the level of lesser trochanter while the fracture was held reduced. The ball-tip guidewire was then passed and confirmed to be within the canal distally on the biplanar fluoroscopic imaging. The wire was then measured the nail length selected. The canal was then sequentially reamed, and over-reamed by 1.5 for a 10 x 34 nail. The nail was then advanced to the proper depth and rotation the guide for the cephalomedullary screws was inserted. In the 1st position drilling the wire for the cephalomedullary school along the inferior neck displaced the proximal part of the fracture this was then withdrawn and the nail adjusted repeat position allowed maintenance of reduction however screw position with just slightly high of the midline in the neck but avoided distal nail reduction and was able to achieve reasonable tip apex distance on the AP and lateral combined although more superior than typical. Additionally due to the patient's small size she was in between lag screw sizes the 80/75 combination was selected to avoid prominence. Guidewires were placed centrally on the lateral view. Next the outer cortex was drilled for the interlocking screw and the anti rotation bar was placed. The cephalomedullary screw length was measured off the drill. A 80 mm lag screw was selected in the corresponding interlocking compression screw. The guidewire was then overdrilled and a lag screw placed. The anti rotation bar was removed and then our locking compression screws placed and confirmed on biplanar fluoroscopy. The integrated compression screw was tightened. Traction was released and attention turned to the distal interlock screw, this was placed in the standard perfect [place] technique. Fluoro AP and lateral images were captured in the OR confirming alignment and hardware placement. Wounds were irrigated and closed in layers with 0 Vicryl in the deep fascia, 2-0 in the subcutaneous layer and avery for skin closure. 0.5% Marcaine was injected at the incision sites for local anesthesia. Sterile dressings were applied. There no immediate complications noted. The surgical counts were correct. The patient tolerated the procedure well and was taken to the recovery room. Complications: none Post-operative Condition: stable Disposition: PACU Plan for aftercare: Touchdown or 20 lb weight bearing with the right lower extremity x6 weeks. We will use Lovenox x4 weeks for DVT prophylaxis. Discharge when stable per primary medical team. We will have 24 hours of postoperative antibiotic. We will follow up in Orthopedic Clinic in 2 weeks for femur x-rays and staple removal.
[2024-06-19] MEDS: CEFAZOLIN 2 GM/100 ML PREMIX 100 ML IV ×3 (07:57→23:16)
[2024-06-19] MEDS: ACETAMINOPHEN IV 1,000 MG/100 ML VIAL 400 MG IV (08:04)
[2024-06-19] MEDS: TRANEXAMIC ACID 1,000 MG in SODIUM CHLORIDE 0.9% 100 ML 200 MG IV (08:25)
[2024-06-19] MEDS: BUPIVACAINE 0.25% (PF) 30 ML, EPINEPHrine 0.15 MG INJ (08:33)
--- NOTE | 2024-06-19 08:43 | SUR.OPER ---
Patient supine on padded [place] table, one arm on padded arm board at <90, other arm padded and secured with tape across patient's chest, both legs secured in padded traction boots and positioned per surgeon, padded post at patient's groin, pressure points checked and padded.
--- NOTE | 2024-06-19 10:08 | DIET.CONS ---
Dietary Consultation Note Admission Date: 06/18/2024 17:51 Assessment: 48 y F admitted after GLF. Nutrition screened for low MNA. Per healthcare team rounds, pt in surgery this morning, EMR reviewed. PMH of drug abuse, hepatitis-C, and recent hospitalization where she was intubated. Drinks 3 oz alcohol/day per H&P. Ht: 160.02 cm Wt: 47.627 kg BMI: 18.6 UBW: 55.5 kg on 05/16/24 (-14% loss in 1 month, severe) Last BM: 06/16/24 (06/19/24 07:30) MNA: 10 Marcello Score: 16 Diet: 06/19/24 00:01 NPO Diet Diet Modifications: NPO Type: Strict Labs: RBC 3.21 X10^6/uL (4.0-5.2) L 06/19/24 05:05 Hgb 9.3 g/dL (12.0-16.0) L 06/19/24 05:05 Hct 27.9 % (36-46) L 06/19/24 05:05 Creatinine 1.12 mg/dL (0.52-1.04) H 06/19/24 05:05 Nutrition Diagnosis: Unintentional weight loss r/t inadequate po aeb 14% loss in 1 month Interventions: 1. F/u for full assessment Monitoring/Evaluations: diet, po intakes Electronically Signed by: Arin Plascencia 06/19/24 10:08 Clinical Dietitian [address] [id number]
[2024-06-19] MEDS: hydrOXYzine 50 MG/ML INJ 25 MG IM (10:21)
[2024-06-19] MEDS: METOPROLOL TARTRATE 5 MG/5 ML INJ IV (10:28)
--- NOTE | 2024-06-19 12:09 | CM.DANOTE ---
B DCP Assessment note Pt is a 48yo F here after a GLF resulted in a right hip fracture. Pt to have repair with Dr. Mcintosh today, 06/19/24 PCP [facility] and Medicaid BEVELING MACHINE OPERATOR reviewed EMR. Per chart, pt was admitted here 05/16/24 until 05/18/24 for respiratory failure with drug OD to [facility]. Pt was intubated throughout admission. Per chart, pt lives in [place] with spouse Adam and step-daughter. Per chart, pt has hx of multidrug misuse and abuse. With this admission pt testing positive for amphetamines, methamphetamines, and MDMA. BEVELING MACHINE OPERATOR attempted to meet with pt early this morning, pt already down in OR for repair. BEVELING MACHINE OPERATOR attempted to meet with pt once back to the floor, resting post op. Pt will work with PT/OT when appropriate for post op recs. Spouse has been at bedside but was unavailable when this BEVELING MACHINE OPERATOR attempted to speak with him for more information on pt baseline/home environment. Barrier to placement could be pt's recent history of drug use. Unknown hx of SNF or HH. CM team will evaluate for pt interested in resources for reduction/cessation of drug misuse. P: CM team will continue to follow closely for post op recs/pt preferences. Home with family vs SNF vs home with home health. KADEEM Mendoza Discharge Planning/Care Management Discharge Assessment Start: 06/19/24 12:07 Freq: Status: Active Protocol: Document 06/19/24 12:08 (Rec: 06/19/24 12:09 [id number]) Discharge Planning Assessment Assigned Senior Reactor Operator KADEEM Cesar DPOA/Assigned Designee Name brinda Medina Contact Information [phone] Advance Directives? No History Provided By Medical Record Prior Living Arrangements House Comment house single level with wheelchair access Household Members spouse,children Type of transporation used prior to Drives own vehicle admit Whiteboard Updated in Patient Room with No name and ext. # of Senior Reactor Operator Review Status In Process Please Provide Date Initial DC 06/19/24 Assessment Was Performed Next Review Type Continued Stay Review
--- NOTE | 2024-06-19 13:42 | PC.NURSE ---
Addendum entered by Prabha Hopson R.N. 06/19/24 14:35: Patient is more alert and conversing. Per pass down from shift superintendent caustic cresylate RN. Patients asked what drugs she was positive for on toxicology screen, explained to that we cannot give out that information as it is hippa confidential. This RN talked to patient about this and she does not want staff telling him about this. She states that he can ask her on his own and they can discuss it. Prabha,RN! Original Note: Patient back from surgery earlier, she has been sleeping since coming up from PACU, patient will open her eyes and does talk and answer questions appropriately. Dressings times 2 to r. hip are all cdi.
--- NOTE | 2024-06-19 15:54 | OT.IP.EVAL ---
Current Diagnoses Fracture of unspecified part of neck of right femur, initial encounter for closed fracture (06/18/24) Surgery Performed Operation Date: 06/19/24 07:45 Actual Procedures p Intramedullary Nailing Femur - Anusha Mcintosh MD Past Medical History (Last Updated 06/19/24 @ 07:37 by Anusha Mcintosh MD) Depression (08/24/02) Hepatitis C, chronic (04/11/02) Occupational Therapy Inpatient Evaluation/Re-Eval M1 PT/OT-IP Prior Functional Status Start: 06/19/24 13:35 Freq: NEEDED Status: Active Protocol: Document 06/19/24 16:15 CGR (Rec: 06/19/24 16:25 CGR [id number]) Medical Review Prior Functional Status Medical History Reviewed Yes Communication Unsure baseline diet and pt has dentures Mobility and Gait Pt states that she recently used RW at home after d/c from [facility] Activities of Daily Living and IADL's Pt states that she is typically IND in all ADLs and 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 Social History Household Members spouse,children Living Arrangements House Number of Floors (Floors) One Floor Number of Stairs To Enter/Railing? 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 is a caregiver for her step daughter who 51 y /o M2 OT-IP Current Condition Start: 06/19/24 16:14 Freq: Status: Active Protocol: Document 06/19/24 16:15 CGR (Rec: 06/19/24 16:25 CGR [id number]) Occupational Therapy Current Condition Current Condition Evaluation Date 06/19/24 Treatment Diagnosis Fall with L hip fx s/p ORIf with TTWB Diagnosis Onset Date 06/18/24 Weight Bearing Status Weight Bearing Status Touch Down Weight Bearing M3 OT- IP Subjective and Pain Start: 06/19/24 16:14 Freq: Status: Active Protocol: Document 06/19/24 16:15 CGR (Rec: 06/19/24 16:25 CGR [id number]) OT- Subjective Occupational Therapy Visit Type Type Initial Evaluation Visit Start Time 15:31 Visit Stop Time 15:54 OT Pain Assessment Pain When Pain Assessed At Rest Pain Present Pain Present Pain Reported Location Right Hip Intensity 9 Scale Used Numeric (0 - 10) Pain Behaviors Crying,Facial Grimacing, Guarding Management Techniques Apply Cold,Distraction, Modification of Treatment,Re- positioning,Timing of Activity with Medications M4 OT- IP ADL's Start: 06/19/24 16:14 Freq: Status: Active Protocol: Document 06/19/24 16:15 CGR (Rec: 06/19/24 16:25 CGR [id number]) OT [id number] General Evaluation Self-Feeding Ability Independent Comments OT Self-Feeding Comments Pt states she is hungry and wants to eat. P.T. checked with nursing and got pt her perfered food from the floor kitchen. OT ADL-Grooming Comments OT Grooming Comments not performed, pt declined OT ADL-Oral Care Comments Oral Care Comments not performed, pt declined OT ADL-Dressing General Eval Lower Body Dressing Ability Total Assistance Areas Needing Assistance Socks OT ADL-Toileting General Evaluation Toileting Ability Total Assistance Comments OT Toileting Comments reno OT ADL-Bathing Comments OT Bathing Comments not performed M5 OT- IP IADL's Start: 06/19/24 16:14 Freq: Status: Active Protocol: Document 06/19/24 16:15 CGR (Rec: 06/19/24 16:25 CGR [id number]) OT-Instrumental Activities of Daily Living Deficits IADL Deficits Identified No Deficits Home Safety Awareness Awareness of Need for Assistance at Home Good Awareness Ability to Problem Solve Emergency Able to Problem Solve Situations Medication Management Medication Management Comments Pt has a hx of drug abuse, concerns regarding her ability to safely take pain medications. 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 Comments unsure Driving Driving Concerns Identified Regarding Safety M6 OT- IP Functional Cognition Start: 06/19/24 16:14 Freq: Status: Active Protocol: Document 06/19/24 16:15 CGR (Rec: 06/19/24 16:25 CGR [id number]) Cognitive Factors Limiting Selfcare Function Cognitive Ability Level of Alertness Alert Patient Orientation Name,Year,Situation Attention Span Ability Unable to Focus,Unable to Sustain Attention Ability to Follow Commands Able to Follow One Step Commands with Increased Time, Able to Follow One Step Commands with Repetition OT- Vision and Hearing OT- Hearing Assessment OT- Hearing Assessment WFL OT- Vision Assessment Visual Attentiveness WFL Occular Pursuits WFL Vision Assessment Comments pt states she wears glasses for driving at night. M7 OT- IP Mobility and Balance Start: 06/19/24 16:14 Freq: Status: Active Protocol: Document 06/19/24 16:15 CGR (Rec: 06/19/24 16:25 CGR [id number]) OT- Bed Mobility Assessment Supine to Sit Supine to Sit Assist Minimal Assistance,1 Person Assistance,Head of Bed Elevated,Bedrails Scooting Scooting to Edge of Bed Minimal Assistance,1 Person Assistance,Head of Bed Elevated,Bedrails OT-Transfer Assessment Sit to and From Stand Sit to and from Stand Moderate Assistance,2 Person Assistance Transfers Transfer Ability Moderate Assistance,2 Person Assistance Technique Transfer Destination Bed,Chair Transfer Technique Stand Step Pivot Devices Transfer Assistive Devices Gait Belt,Front Wheeled Walker Comments Mobility Comments Pt was able to take hopping steps with the use of the walker for tranfer to chair. OT- Balance Assessment Sitting Balance and Reactions Static Sitting Balance Ability Good Dynamic Sitting Balance Ability Good M8 OT- IP Objective Assessments Start: 06/19/24 16:14 Freq: Status: Active Protocol: Document 06/19/24 16:15 CGR (Rec: 06/19/24 16:25 CGR [id number]) OT Gross Range of Motion Upper Extremity Range of Motion Assessment Within Functional Limits OT Strength Upper Extremity Strength Assessment Within Functional Limits Comments Strength Comments 4-/5 OT- Coordination Assessment Upper Extremity Finger to Nose Test Within Functional Limits Finger Tapping Test Within Functional Limits OT-Muscle Tone Assessment Muscle Tone WNL Yes OT Sensation Assessment Edema Edema Absent M9 OT- IP Assessment and Plan Start: 06/19/24 16:14 Freq: Status: Active Protocol: Document 06/19/24 16:15 CGR (Rec: 06/19/24 16:25 CGR [id number]) OT Summary Assessment and Plan Potential Rehabilitation Potential Good Analytic Complexity at Evaluation High Summary OT Impairments Pain,Strength,Balance, Functional Cognition, Functional Mobility,Grooming, Dressing,Toileting,Bathing, Toilet Transfers,Shower Transfers,Activity Tolerance Progress Towards Goals Slow Progress due to Pain Assessment Summary Pt presents as a high complexity evaluation s/p admit for fall with L hip fx. Pt underwent 06/19 ORIF of the L hip and now is TTWB. Pt currently with 9/10 pain with movement and will be limited with all mobility and ADLs. Recommend d/c to SNF. If d/c home, pt will need 24 hour physical assist given her current abilities. Goals Grooming Goal Independent Dressing Goal Independent Toileting Goal Independent Bathing Goal Independent Toilet Transfer Goal Independent Shower Transfer Goal Independent Days to Meet Goals 20 Frequency of Treatment Other frequency 5x a week Treatment Plan OT Treatment Plan ADL Training,Functional Cognition Training,Functional Mobility,Therapeutic Exercises ,Patient/Family Education, Discharge Planning Other Treatment Recommendations and Next ADLs seated, LB dressing Treatment Focus Discharge Recommendations OT Discharge Recommendations SNF Rehab Transportation Needs at Discharge Wheelchair/Cabulance
[2024-06-19] MEDS: HYDROMORPHONE 2 MG TABLET PO ×2 (16:03→18:50)
[2024-06-19] MEDS: IBUPROFEN 600 MG TABLET PO (16:04)
--- NOTE | 2024-06-19 16:09 | PT.IIE ---
Current Diagnoses Fracture of unspecified part of neck of right femur, initial encounter for closed fracture (06/18/24) Surgery Performed Operation Date: 06/19/24 07:45 Actual Procedures p Intramedullary Nailing Femur - Anusha Mcintosh MD Medical History (Last Updated 06/19/24 @ 07:37 by Anusha Mcintosh MD) Depression (08/24/02) Hepatitis C, chronic (04/11/02) Physical Therapy Inpatient Evaluation/Re-Eval M1 PT/OT-IP Prior Functional Status Start: 06/19/24 13:35 Freq: NEEDED Status: Active Protocol: Document 06/19/24 15:31 MB (Rec: 06/19/24 16:09 MB [id number]) Medical Review Prior Functional Status Medical History Reviewed Yes Communication Unsure baseline diet and pt has dentures Mobility and Gait Pt states that she recently used RW at home after d/c from [facility] Social History Household Members spouse,children Living Arrangements House Number of Floors (Floors) One Floor Number of Stairs To Enter/Railing? 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 her step-daughter who is 51 y/o M2 PT-IP Current Condition Start: 06/19/24 13:35 Freq: NEEDED Status: Active Protocol: Document 06/19/24 15:31 MB (Rec: 06/19/24 16:09 MB [id number]) Physical Therapy Current Condition Current Condition Evaluation Date 06/19/24 Treatment Diagnosis R hip fracture s/p ORIF M3 PT-IP Subjective Start: 06/19/24 13:35 Freq: NEEDED Status: Active Protocol: Document 06/19/24 15:31 MB (Rec: 06/19/24 16:09 MB [id number]) Subjective Physical Therapy Visit Type Type Initial Evaluation Visit Start Time 15:31 Visit Stop Time 15:54 Number of CRYSTALIZER Visits 0 Physical Therapy Visit Comments Patient Comments Pt states she is afraid to move leg but she is agreeable to PT. Therapy Pain Assessment Pain When Pain Assessed During Mobility Pain Present Pain Present Pain Reported Location Right Hip Intensity 9 Scale Used Numeric (0 - 10) M4 PT-IP Mobility and Gait Start: 06/19/24 13:35 Freq: NEEDED Status: Active Protocol: Document 06/19/24 15:31 MB (Rec: 06/19/24 16:09 MB [id number]) PT-Bed Mobility Assessment Rolling Type of Rolling Roll to Left Level of Assist Minimal Assistance Supine to Sit Supine to Sit Minimal Assistance,1 Person Assistance,Head of Bed Elevated,Bedrails Scooting Scooting to Edge of Bed Minimal Assistance PT-Transfer Assessment Sit to and From Stand Sit to and from Stand Moderate Assistance,2 Person Assistance,Use of Upper Extremities Equipment Transfer Assistive Device Gait Belt,Front Wheeled Walker Orthotic/Prosthetic Devices or Brace: No Transfers Transfer Destination Chair Transfer Technique Pt performed hop step Transfer Ability Level of Assist Moderate Assistance,2 Person Assistance,Use of Upper Extremities Gait Assessment Gait Gait Assistance Required: Moderate Assistance,2 Person Assist Distance (Feet) 2 Able to Maintain Weight Bearing Status Yes During Gait Assistive Devices Assistive Device Gait Belt,Front Wheeled Walker Orthotic/Prosthetic Devices or Brace: No Gait Deviations General Gait Pattern Antalgic,Decreased Stride Length,Decreased Feet Clearance,Flexed Trunk,Step-to Gait Factors Limiting Gait Function Factors Limiting Gait Function Decreased Activity Tolerance, Difficulty Following Directions,Incoordination, Limited Range of Motion,Pain, Poor Balance,Poor Safety Awareness Comments Gait Comments Pt is unable to perform TDWB and instead performs NWB hop on LLE and she does perform TDWB right foot with stand to sit to chair, frequent cues and line management and O2 sats drop on RW with mobility and 2L O2 redonned and O2 sats remain 90% or above, BP does not drop with mobility PT-Balance Assessment Sitting Balance and Reactions Static Sitting Balance Ability Fair Dynamic Sitting Balance Ability Fair Standing Balance and Reactions Static Standing Balance Ability Fair Dynamic Standing Balance Ability Poor Device Used RW M5 PT-IP Objective Assessments Start: 06/19/24 13:35 Freq: NEEDED Status: Active Protocol: Document 06/19/24 15:31 MB (Rec: 06/19/24 16:09 MB [id number]) Orientation Orientation/Cognition Level of Alertness Confusional State Orientation Name,Age,Birthday Safety Awareness Decreased Safety Awareness Comments Pt has trouble answering many orientation questions Gross Range of Motion Upper Extremity ROM Impairments Defer to OT Lower Extremity ROM Assessment Right Impaired Impairments RLE is functionally shorter than left in hook lying Strength Lower Extremity Strength Assessment Right Impaired Comments Strength Comments Pt does not tolerate ROM and MMT well today Coordination Assessment Gross Coordination Gross Coordination Impaired Sensation Assessment Comments Sensation Comments Pt does not follow sensory commands M6 PT-IP Treatment Start: 06/19/24 13:35 Freq: NEEDED Status: Active Protocol: Document 06/19/24 15:31 MB (Rec: 06/19/24 16:09 MB [id number]) Physical Therapy Treatment Exercises Exercises Ankle Pumps Education Education Provided Weight Bearing Status,Safety M7 PT-IP Assessment and Plan Start: 06/19/24 13:35 Freq: NEEDED Status: Active Protocol: Document 06/19/24 15:31 MB (Rec: 06/19/24 16:09 MB [id number]) PT Summary Assessment and Plan Potential Rehabilitation Potential Fair Status of Condition at Evaluation Evolving Summary Impairments Pain,ROM,Strength,Balance, Coordination,Sensation, Cognition,Bed Mobility, Transfers,Gait,Activity Tolerance Progress Towards Goals Slow Progress due to Activity Tolerance Assessment Summary Pt is a 48 y/o female presenting with reports of high pain and fearfulness with moving same day surgery for ORIF right hip. Pt's O2 sats drop on RA and so redonned 2L O2 after mobility and sats stay above 90%. She is able to keep weight off RLE with mobility and tends to perform hop gait on left foot rather than TDWB. She presents with some confusion today. Goals Bed Mobility Goal Independent Transfer Goal Independent,Front Wheeled Walker Gait Goal Independent,Front Wheel Walker Gait Distance 50 Days to Meet Goals 5 Frequency of Treatment Frequency Of Treatment Twice a Day Treatment Plan Physical Therapy Treatment Plan Bed Mobility Training,Transfer Training,Gait Training, Therapeutic Exercise,Balance Retraining,Post Op Education, Discharge Planning,Hot or Cold Pack,Neuromuscular Re-ed, Coordination Retraining,Manual Therapy Weight Bearing Status Weight Bearing Status Touch Down Weight Bearing Allowed Weight Bearing Amount (enter % RLE or #) (%) Recommendations To Nursing Amount of Assist Needed 2 Person Assist Discharge Recommendations PT Discharge Recommendations SNF Rehab Transportation Needs at Discharge Wheelchair/Cabulance
[2024-06-19] MEDS: LACTATED RINGERS 1,000 ML 100 ML IV (17:21)
--- NOTE | 2024-06-19 19:20 | PM.PN.1 ---
Subjective Subjective Interval history: 48 year old female who was recently in our ICU for seizure activity, intubated, and transferred for further neurological evaluation admitted with a hip fracture yesterday. S/p repair today. No complaints today but seen very shortly after surgery where she was still slightly groggy but denied chest pain, shortness of breath. Exam Vital Signs (past 8 hours): - 06/19/24 11:30 06/19/24 12:00 06/19/24 13:00 Temperature 99.2 F 99.5 F 100.0 F H Pulse Rate 76 75 72 Respiratory Rate 12 14 11 L Blood Pressure 150/106 H 144/97 H 129/92 H Pulse Oximetry 100 100 99 Oxygen Flow Rate 2 2 2 06/19/24 14:00 Temperature 97.8 F Pulse Rate 73 Respiratory Rate 12 Blood Pressure 136/91 H Pulse Oximetry 97 Oxygen Flow Rate 2 Oxygen Delivery Method Nasal Cannula Oxygen Flow Rate 2 Narrative Exam Narrative: Gen: alert, falls asleep easily (seen after surgery), no acute distress CV: RRR no m/r/g Pulm: CTA b/l Abd: S NT ND Ext: no edema Objective Labs 06/19/24 05:05 06/19/24 05:05 Labs: Laboratory Results - last 24 hr 06/19/24 05:05 WBC 6.7 RBC 3.21 L Hgb 9.3 L Hct 27.9 L MCV 86.9 MCH 29.0 MCHC 33.4 RDW 14.9 H Plt Count 228 Neut % (Auto) 75.6 H Lymph % (Auto) 13.6 L [place] % (Auto) 10.6 Eos % (Auto) 0.1 L Baso % (Auto) 0.1 Neut # (Auto) 5100 Lymph # (Auto) 900 L [place] # (Auto) 700 Eos # (Auto) 0 Baso # (Auto) 0 Sodium 138 Potassium 4.1 Chloride 106 Carbon Dioxide 31 BUN 25 H Creatinine 1.12 H Estimated GFR 60 BUN/Creatinine Ratio 22.3 H Glucose 140 H Calcium 9.3 PFSH Medical History (Updated 06/19/24 @ 07:37 by Anusha Mcintosh MD) Depression (08/24/02) Hepatitis C, chronic (04/11/02) Social History marital status: household members: spouse and children Smoking Status: Never smoker Assessment & Plan Assessment & Plan narrative: 1. Right femoral neck fracture, present on admission and active. 2. Ground level fall, present on admission and active. 3. Hepatitis-C, present on admission and active. 4. Pathologic fracture secondary to osteoporosis, present on admission and active. 5. Polysubstance abuse (methamphetamines, Suboxone, clonazepam, and alcohol), present on admission and active. 6. Anemia, which may be chronic or related to blood loss from fracture. Present on admission and active. 7. MÓNICA with creatinine 1.33, present on admission and active. 8. Hypertension, present on admission and active. 9. History of seizures. PLAN: - continue home keppra - BP normal today, will continue to hold home meds restart as needed. - PT/OT to start tomorrow - resume home venlafaxine, confirm dosing - clonazepam as needed for now - consider resuming suboxone - will stop IV fluids, continue to monitor renal function with Cr improving to 1.12. Full resuscitation Inpatient status as her calorie require at least 2 midnights of hospital care. is proxy decision maker. Time-Based Coding :: [TOTAL MINUTES] spent with patient and on the chart (including review of chart, obtaining history, exam, reviewing outside data, placing orders, documenting exam and treatment plan, and counseling patient) on [DATE].
[2024-06-19] MEDS: levETIRAcetam 250 MG TABLET 1000 MG PO (20:28)
[2024-06-19] MEDS: OXYCODONE IR 5 MG TABLET PO (20:28)
[2024-06-20] VITALS: BP 141/93; PULSE 75; TEMP 37; O2SAT 97
[2024-06-20] MEDS: IBUPROFEN 600 MG TABLET PO ×2 (03:25→12:03)
[2024-06-20] MEDS: HYDROMORPHONE 0.5 MG INJ IV ×3 (03:25→22:47)
[2024-06-20] MEDS: OXYCODONE IR 5 MG TABLET PO (04:02)
[2024-06-20 05:00] VITALS: BP 155/100; PULSE 78; RESP 16; TEMP 35.9; O2SAT 98
[2024-06-20 06:15] VITALS: BP 135/102; PULSE 77; O2SAT 98
[2024-06-20 06:26] LABS: Add Manual Diff / Slide Review NO; Basophils Absolute Auto 0 /uL (0-100); Basophils Percent Auto 0.2 % (0-2); Eosinophils Absolute Auto 0 /uL (0-450); Hematocrit 24.1 % (36-46); Hemoglobin 8.1 g/dL (12.0-16.0); Lymphocytes Absolute Auto 1100 /uL (1100-4500); Lymphocytes Percent Auto 12.6 % (25-40); Mean Corpuscular HGB Conc 33.6 % (30-36); Mean Corpuscular Hemoglobin 28.9 PG (26-34); Mean Corpuscular Volume 85.9 fL (80-100); Monocytes Absolute Auto 800 /uL (0-900); Monocytes Percent Auto 8.9 % (3-14); Neutrophils Absolute Auto 6700 /uL (1500-7000); Neutrophils Percent Auto 78.3 % (50-75); Platelet Count 209 X10^3/uL (150-400); Red Cell Distribution Width 14.7 % (11.6-14.8); White Blood Cell Count 8.6 X10^3/uL (4.5-11.0)
[2024-06-20] MEDS: METHYLPHENIDATE 5 MG TABLET 20 MG PO ×2 (06:28→12:02)
[2024-06-20 06:56] LABS: BUN Creatinine Ratio 25.6 (6-22); Blood Urea Nitrogen 23 mg/dL (7-17); Calcium 9.1 mg/dL (8.4-10.2); Carbon Dioxide 30 mmol/L (22-32); Chloride 104 mmol/L (98-107); Estimated Glomerular Filt Rate > 60 mL/min (>60); Glucose 110 mg/dL (70-100); HEMOLYSIS < 15 (0-50); Potassium 4.1 mmol/L (3.4-5.1); Sodium 135 mmol/L (137-145)
--- NOTE | 2024-06-20 08:26 | PC.NURSE ---
Addendum entered by Prabha Hopson R.N. 06/20/24 14:45: Patient started on po oxycontin 20mg.. This has been given to patient. She is working with OT now. She has been getting 4mg of po dilaudid every few hours as well. This has been helpful for her pain to her r.hip. Original Note: Patient teary eyed, reassured that she will get some pain medication for her r.hip pain prior to working with physical therapy. She has an aquacel dressing in place and another dressing on her r.leg that are both cdi. Patient is a one person assist with walker to chair. She still has her reno catheter in as she has not moved alot with physical therapy or walked much in the room. Will reassess this a bit later. Will give patient 4mg of po dilaudid this morning as she was crying in pain. She is eating breakfast now and tolerating this well.
[2024-06-20 08:34] VITALS: BP 147/102; PULSE 79; RESP 19; TEMP 36.5; O2SAT 99
[2024-06-20] MEDS: levETIRAcetam 250 MG TABLET 1000 MG PO ×2 (08:35→20:47)
[2024-06-20] MEDS: VENLAFAXINE ER 75 MG CAP PO (08:35)
[2024-06-20] MEDS: HYDROMORPHONE 2 MG TABLET 4 MG PO ×4 (08:36→19:40)
[2024-06-20] MEDS: ENOXAPARIN 40 MG/0.4 ML SYRINGE SUBCUT (08:36)
[2024-06-20] MEDS: DOCUSATE 100 MG CAPSULE PO ×2 (08:36→20:47)
--- NOTE | 2024-06-20 09:31 | PT-IP ANOTE ---
Pt refused to work with PT this morning. She reports being in too much pain to move. PT will check on pt in the afternoon.
--- NOTE | 2024-06-20 10:55 | DIET.PN1 ---
Dietary Progress Note Assessment: Per RN, pt sleeping and not appropriate for visit at this time. Will add ONS BID to meals. F/u 1-2 days. Ht: 160.02 cm Wt: 47.627 kg BMI: 18.6 UBW: Last BM: 06/16/24 (06/19/24 07:30) MNA: 10 Marcello Score: 20 Diet: 06/19/24 Lunch General (Regular) Diet Diet Modifications: Food Texture: Level 7 - Regular Liquid Consistency: Level 0 - Thin Nutrition Percent Meal Consumed 50% 06/19/24 19:21 Labs: RBC 2.80 X10^6/uL (4.0-5.2) L 06/20/24 06:14 Hgb 8.1 g/dL (12.0-16.0) L 06/20/24 06:14 Hct 24.1 % (36-46) L 06/20/24 06:14 Creatinine 0.90 mg/dL (0.52-1.04) 06/20/24 06:14 Electronically Signed by: Arin Plascencia 06/20/24 10:55 Clinical Dietitian [address] [id number]
[2024-06-20] MEDS: OXYCODONE ER 10 MG TAB 20 MG PO ×2 (14:16→20:47)
--- NOTE | 2024-06-20 14:56 | OT.IP.TRT ---
Current Diagnoses Fracture of unspecified part of neck of right femur, initial encounter for closed fracture (06/18/24) Surgery Performed Operation Date: 06/19/24 07:45 Actual Procedures p Intramedullary Nailing Femur(Right) - Anusha Mcintosh MD Occupational Therapy Treatment Note M2 OT-IP Current Condition Start: 06/19/24 16:14 Freq: Status: Active Protocol: Document 06/19/24 16:15 [facility] (Rec: 06/19/24 16:25 [facility] [id number]) Occupational Therapy Current Condition Current Condition Evaluation Date 06/19/24 Treatment Diagnosis Fall with L hip fx s/p ORIf with TTWB Diagnosis Onset Date 06/18/24 Weight Bearing Status Weight Bearing Status Touch Down Weight Bearing M3 OT- IP Subjective and Pain Start: 06/19/24 16:14 Freq: Status: Active Protocol: Document 06/20/24 15:00 [facility] (Rec: 06/20/24 15:10 [facility] [id number]) OT- Subjective Occupational Therapy Visit Type Type Treatment Note Visit Start Time 14:31 Visit Stop Time 14:56 Occupational Therapy Visit Comments Patient Comments Pt needing encouragement and agreed to get to the edge of the bed. Patient/Caregiver Goals TO get better. OT Pain Assessment Pain When Pain Assessed At Rest Pain Present Pain Present Pain Reported Location Right Hip Scale Used Numeric (0 - 10) Pain Behaviors Crying,Facial Grimacing, Guarding M4 OT- IP ADL's Start: 06/19/24 16:14 Freq: Status: Active Protocol: Document 06/20/24 15:00 [facility] (Rec: 06/20/24 15:10 [facility] [id number]) OT OCP-Dvqy-Rlsvqwu General Evaluation Self-Feeding Ability Independent OT ADL-Grooming Comments OT Grooming Comments Not performed. OT ADL-Oral Care Comments Oral Care Comments Not performed. OT ADL-Dressing General Eval Lower Body Dressing Ability Total Assistance Areas Needing Assistance Socks Comments OT Dressing Comments Pt states her adult step daughter with special needs has LB dressing equipment that she can use. OT ADL-Toileting General Evaluation Toileting Ability Total Assistance Comments OT Toileting Comments reno. If going home would benefit from drop arm BSC to increass ease to transfer and follow her TDWB status. OT ADL-Bathing Comments OT Bathing Comments Pt states would probably sponge off initially. M5 OT- IP IADL's Start: 06/19/24 16:14 Freq: Status: Active Protocol: Document 06/19/24 16:15 [facility] (Rec: 06/19/24 16:25 [facility] [id number]) OT-Instrumental Activities of Daily Living Deficits IADL Deficits Identified No Deficits Home Safety Awareness Awareness of Need for Assistance at Home Good Awareness Ability to Problem Solve Emergency Able to Problem Solve Situations Medication Management Medication Management Comments Pt has a hx of drug abuse, concerns regarding her ability to safely take pain medications. Money Management Money Management Comments unsure Meal Preparation Meal Preparation Comments unsure Attenuator Attenuator Comments unsure Driving Driving Concerns Identified Regarding Safety M6 OT- IP Functional Cognition Start: 06/19/24 16:14 Freq: Status: Active Protocol: Document 06/20/24 15:00 [facility] (Rec: 06/20/24 15:10 [facility] [id number]) Cognitive Factors Limiting Selfcare Function Cognitive Ability Level of Alertness Alert Patient Orientation Name,Year,Situation Attention Span Ability Capable of Focused Attention, Capable of Sustained Attention Ability to Follow Commands Able to Follow One Step Commands with Increased Time, Able to Follow One Step Commands with Repetition Cognitive Comments Cognitive Assessment Comments Pt able to follow commands after encouragement. M7 OT- IP Mobility and Balance Start: 06/19/24 16:14 Freq: Status: Active Protocol: Document 06/20/24 15:00 [facility] (Rec: 06/20/24 15:10 [facility] [id number]) OT- Bed Mobility Assessment Supine to Sit Supine to Sit Assist Minimal Assistance,Head of Bed Elevated,Bedrails- Pt will need more assist from a flat bed at least MODA Scooting Scooting to Edge of Bed Contact Guard Assistance OT-Transfer Assessment Sit to and From Stand Sit to and from Stand Moderate Assistance,1 Person Assistance Comments Mobility Comments Pt YODIT to help hold her LLE and use of gait belt to get to the edge of the bed. CGA to scoot to the edge of the bed. MODA X 1 to stand to the FWW and able to slide her foot side to side to move to the head of the bed as wanting to lie back down. Pt states has a transport chair at home but if having to go home will benefit from a wc. OT- Balance Assessment Sitting Balance and Reactions Static Sitting Balance Ability Good Dynamic Sitting Balance Ability Good Standing Balance and Reactions Static Standing Balance Ability Fair Dynamic Standing Balance Ability Poor M8 OT- IP Objective Assessments Start: 06/19/24 16:14 Freq: Status: Active Protocol: Document 06/19/24 16:15 [facility] (Rec: 06/19/24 16:25 [facility] [id number]) OT Gross Range of Motion Upper Extremity Range of Motion Assessment Within Functional Limits OT Strength Upper Extremity Strength Assessment Within Functional Limits Comments Strength Comments 4-/5 OT- Coordination Assessment Upper Extremity Finger to Nose Test Within Functional Limits Finger Tapping Test Within Functional Limits OT-Muscle Tone Assessment Muscle Tone WNL Yes OT Sensation Assessment Edema Edema Absent M9 OT- IP Assessment and Plan Start: 06/19/24 16:14 Freq: Status: Active Protocol: Document 06/20/24 15:00 [facility] (Rec: 06/20/24 15:10 [facility] [id number]) OT Summary Assessment and Plan Potential Rehabilitation Potential Good Analytic Complexity at Evaluation High Summary OT Impairments Pain,Strength,Balance, Functional Cognition, Functional Mobility,Grooming, Dressing,Toileting,Bathing, Toilet Transfers,Shower Transfers,Activity Tolerance Progress Towards Goals Slow Progress due to Pain,Slow Progress due to Medical Issues Assessment Summary Pt still having lots of pain and having difficulty to move her LLE. 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 Pt also still on O2 1L at 93% and on RA was 88% . Goals Grooming Goal Independent Dressing Goal Independent Toileting Goal Independent Bathing Goal Independent Toilet Transfer Goal Independent Shower Transfer Goal Independent Days to Meet Goals 20 Frequency of Treatment Other frequency 5x a week Treatment Plan OT Treatment Plan ADL Training,Functional Cognition Training,Functional Mobility,Therapeutic Exercises ,Patient/Family Education, Discharge Planning Other Treatment Recommendations and Next ADLs seated, LB dressing Treatment Focus Discharge Recommendations OT Discharge Recommendations SNF Rehab Transportation Needs at Discharge Wheelchair/Cabulance
--- NOTE | 2024-06-20 16:00 | PT.IPTN ---
Current Diagnoses Fracture of unspecified part of neck of right femur, initial encounter for closed fracture (06/18/24) Surgery Performed Operation Date: 06/19/24 07:45 Actual Procedures p Intramedullary Nailing Femur(Right) - Anusha Mcintosh MD Physical Therapy Treatment Note M2 PT-IP Current Condition Start: 06/19/24 13:35 Freq: NEEDED Status: Active Protocol: Document 06/19/24 15:31 MB (Rec: 06/19/24 16:09 MB [id number]) Physical Therapy Current Condition Current Condition Evaluation Date 06/19/24 Treatment Diagnosis R hip fracture s/p ORIF M3 PT-IP Subjective Start: 06/19/24 13:35 Freq: NEEDED Status: Active Protocol: Document 06/20/24 16:00 AB (Rec: 06/20/24 16:59 AB [id number]) Subjective Physical Therapy Visit Type Type Treatment Note Visit Start Time 16:00 Visit Stop Time 16:20 Number of SHIRT MAKER Visits 0 Physical Therapy Visit Comments Patient Comments agreed to do PT Therapy Pain Assessment Pain When Pain Assessed At Rest Pain Present Pain Present Pain Reported Location Right Hip Intensity 3 Scale Used increases to 6/10 with movement Pain Behaviors Facial Grimacing,Guarding, Holding Area Pain Management Techniques Apply Cold,Distraction, Modification of Treatment,Re- positioning,Timing of Activity with Medications M4 PT-IP Mobility and Gait Start: 06/19/24 13:35 Freq: NEEDED Status: Active Protocol: Document 06/20/24 16:00 AB (Rec: 06/20/24 16:59 AB [id number]) PT-Bed Mobility Assessment Supine to Sit Supine to Sit Moderate Assistance,1 Person Assistance,Head of Bed Elevated,Bedrails Sit to Supine Sit to Supine Moderate Assistance,1 Person Assistance,Head of Bed Elevated,Bedrails PT-Transfer Assessment Sit to and From Stand Sit to and from Stand Moderate Assistance,1 Person Assistance,Use of Upper Extremities Equipment Transfer Assistive Device Gait Belt,Front Wheeled Walker Orthotic/Prosthetic Devices or Brace: No Comments Mobility Comments pt supine in bed and agreeable to do PT. BP: 148/98 O2 sat at RA: 99-100%. pt completed supine to sit mod A and max cues. pt initially used safety belt as leg chief talent officer to assist LLE movement but still needing mod A to complete sitting on EOB. HOB elevated. pt able to sit on EOB SBA. educated on TTWB on RLE/NWB. pt completed sit to stand mod A and cues and ambulated in room ~ 20 ft using FWW min to mod A and cues. pt able to maintain NWB to TTWB on RLE. pt requested to go back to bed and refused to sit up on the chair. completed sit to supine mod A and max cues to move RLE to bed. positioned pt in bed. call light and table placed within reach. Gait Assessment Gait Gait Assistance Required: Minimum Assistance,Moderate Assistance Distance (Feet) 20 Able to Maintain Weight Bearing Status Yes During Gait Assistive Devices Assistive Device Gait Belt,Front Wheeled Walker Orthotic/Prosthetic Devices or Brace: No Factors Limiting Gait Function Factors Limiting Gait Function Decreased Activity Tolerance, Decreased Strength,Limited Range of Motion,Pain,Poor Balance,Poor Safety Awareness M5 PT-IP Objective Assessments Start: 06/19/24 13:35 Freq: NEEDED Status: Active Protocol: Document 06/19/24 15:31 MB (Rec: 06/19/24 16:09 MB [id number]) Orientation Orientation/Cognition Level of Alertness Confusional State Orientation Name,Age,Birthday Safety Awareness Decreased Safety Awareness Comments Pt has trouble answering many orientation questions Gross Range of Motion Upper Extremity ROM Impairments Defer to OT Lower Extremity ROM Assessment Right Impaired Impairments RLE is functionally shorter than left in hook lying Strength Lower Extremity Strength Assessment Right Impaired Comments Strength Comments Pt does not tolerate ROM and MMT well today Coordination Assessment Gross Coordination Gross Coordination Impaired Sensation Assessment Comments Sensation Comments Pt does not follow sensory commands M6 PT-IP Treatment Start: 06/19/24 13:35 Freq: NEEDED Status: Active Protocol: Document 06/20/24 16:00 AB (Rec: 06/20/24 16:59 AB [id number]) Physical Therapy Treatment Education Education Provided Weight Bearing Status,Safety M7 PT-IP Assessment and Plan Start: 06/19/24 13:35 Freq: NEEDED Status: Active Protocol: Document 06/20/24 16:00 AB (Rec: 06/20/24 16:59 AB [id number]) PT Summary Assessment and Plan Potential Rehabilitation Potential Fair Summary Impairments Pain,ROM,Strength,Balance, Coordination,Sensation,Tone, Cognition,Bed Mobility, Transfers,Gait,Activity Tolerance Progress Towards Goals Slow Progress due to Pain Assessment Summary pt requiring mod A for bed mobilty and transfers using FWW and able to ambulate ~ 20 ft using FWW min to mod A and cues. pt stated that spouse will be able to assist her at home. d/c plan depending on progress but at this time will benefit from SNF rehab. will continue to assess. Goals Bed Mobility Goal Independent Transfer Goal Independent,Front Wheeled Walker Gait Goal Independent,Front Wheel Walker Gait Distance 50 Days to Meet Goals 5 Frequency of Treatment Other frequency 1-2x/day Treatment Plan Physical Therapy Treatment Plan Bed Mobility Training,Transfer Training,Gait Training, Therapeutic Exercise,Balance Retraining,Post Op Education, Discharge Planning,Hot or Cold Pack,Neuromuscular Re-ed, Coordination Retraining,Manual Therapy Weight Bearing Status Weight Bearing Status Touch Down Weight Bearing Allowed Weight Bearing Amount (enter % RLE or #) (%) Recommendations To Nursing Amount of Assist Needed 1 Person Assist Discharge Recommendations PT Discharge Recommendations SNF Rehab Transportation Needs at Discharge Wheelchair/Cabulance
--- NOTE | 2024-06-20 16:19 | CM.DPNOTE ---
DCP NOte MARKETING INFORMATION MANAGER reviewed EMR. Per PT/OT, continue to rec SNF. MARKETING INFORMATION MANAGER met with pt in room. Report willing to dc to SNF. Preference either 1) [facility], 2) [facility] (in general, preference closest to home in [place]). MARKETING INFORMATION MANAGER reviewed barriers to placement, primarily ins auth and recent hx of drug use. MARKETING INFORMATION MANAGER reviewed that pt would be asked to leave SNF if it was found someone brought her illicit substance. Pt report verbal understanding. MARKETING INFORMATION MANAGER conversation interrupted before further KWAME conversation by PT. Per Maya at , willing to review and submit for auth if able to accept. P: pending accepting facility/auth. If [facility] deny, referrals needed to additional SNF locations. PASRR needed. CM team will continue to follow closely KADEEM Mendoza
--- NOTE | 2024-06-20 17:24 | PM.PNPO.1 ---
Subjective Subjective Date Patient Seen: 06/20/24 Time Patient Seen: 17:25 Interval history: Patient is having difficulty getting her pain under control. Pain is primarily the right hip. Denies any new numbness or tingling down either extremity. Denies any nausea or vomiting. Denies any fever or chills. Exam Vital Signs (past 8 hours): Fraction of Inspired Oxygen 28 SaO2/FiO2 Ratio 339 Oxygen Delivery Method Nasal Cannula Oxygen Flow Rate 0 Narrative Exam Narrative: 5/5 strength in hip flexors, quadriceps, hamstrings, DF, PF, EHL bilaterally. Sensation to light touch intact throughout BLE. Calves soft, compressible, nontender. ?Dressing placed intraoperatively CDI. SCDs on and working. Resp Effort & Inspection: normal respiratory effort and able to speak in complete sentences Objective Labs 06/20/24 06:14 06/20/24 06:14 Labs: Laboratory Results - last 24 hr 06/20/24 06:14 WBC 8.6 RBC 2.80 L Hgb 8.1 L Hct 24.1 L MCV 85.9 MCH 28.9 MCHC 33.6 RDW 14.7 Plt Count 209 Neut % (Auto) 78.3 H Lymph % (Auto) 12.6 L [place] % (Auto) 8.9 Eos % (Auto) 0.0 L Baso % (Auto) 0.2 Neut # (Auto) 6700 Lymph # (Auto) 1100 [place] # (Auto) 800 Eos # (Auto) 0 Baso # (Auto) 0 Sodium 135 L Potassium 4.1 Chloride 104 Carbon Dioxide 30 BUN 23 H Creatinine 0.90 Estimated GFR > 60 BUN/Creatinine Ratio 25.6 H Glucose 110 H Calcium 9.1 PFSH Medical History (Updated 06/19/24 @ 07:37 by Anusha Mcintosh MD) Depression (08/24/02) Hepatitis C, chronic (04/11/02) Social History marital status: household members: spouse and children Smoking Status: Never smoker Assessment & Plan Post-op Postoperative Procedures: Procedures Operation Date: 06/19/24 07:45 Actual Procedure Side Surgeon p Intramedullary Nailing Femur Right Anusha Mcintosh MD Postoperative day: 1 Postoperative status: doing well and marginal pain control Postoperative plan: routine post-op care Postoperative plan narrative: Patient continue work with PT for ambulation. Multimodal pain control as directed by Medicine. Lovenox 4 weeks for DVT prophylaxis. Follow up [facility] in 2 weeks for x-ray and wound check. Discharge disposition per Medicine once medically stable. Time Spent With Patient Time with patient: less than 15 minutes
--- NOTE | 2024-06-20 18:20 | P.PN_ITS ---
Subjective Subjective Interval history: 48 year old female who was recently in our ICU for seizure activity, intubated, and transferred for further neurological evaluation admitted with a hip fracture. S/p repair on 06/19. Still had quite a bit of pain, discussed options and decided to add some extended release morphine for baseline control given she still endorses opiate use Exam Vital Signs (past 8 hours): Fraction of Inspired Oxygen 28 SaO2/FiO2 Ratio 339 Oxygen Delivery Method Nasal Cannula Oxygen Flow Rate 0 Narrative Exam Narrative: Gen: alert, no acute distress CV: RRR no m/r/g Pulm: CTA b/l Abd: S NT ND Ext: no edema Objective Labs 06/20/24 06:14 06/20/24 06:14 Labs: Laboratory Results - last 24 hr 06/20/24 06:14 WBC 8.6 RBC 2.80 L Hgb 8.1 L Hct 24.1 L MCV 85.9 MCH 28.9 MCHC 33.6 RDW 14.7 Plt Count 209 Neut % (Auto) 78.3 H Lymph % (Auto) 12.6 L [place] % (Auto) 8.9 Eos % (Auto) 0.0 L Baso % (Auto) 0.2 Neut # (Auto) 6700 Lymph # (Auto) 1100 [place] # (Auto) 800 Eos # (Auto) 0 Baso # (Auto) 0 Sodium 135 L Potassium 4.1 Chloride 104 Carbon Dioxide 30 BUN 23 H Creatinine 0.90 Estimated GFR > 60 BUN/Creatinine Ratio 25.6 H Glucose 110 H Calcium 9.1 PFSH Medical History (Updated 06/19/24 @ 07:37 by Anusha Mcintosh MD) Depression (08/24/02) Hepatitis C, chronic (04/11/02) Social History marital status: household members: spouse and children Smoking Status: Never smoker Assessment & Plan Assessment & Plan narrative: 1. Right femoral neck fracture, present on admission and active. 2. Ground level fall, present on admission and active. 3. Hepatitis-C, present on admission and active. 4. Pathologic fracture secondary to osteoporosis, present on admission and active. 5. Polysubstance abuse (methamphetamines, Suboxone, clonazepam, and alcohol), present on admission and active. 6. Anemia, which may be chronic or related to blood loss from fracture. Present on admission and active. 7. MÓNICA with creatinine 1.33, present on admission and active. 8. Hypertension, present on admission and active. 9. History of seizures. 10. Acute blood loss anemia secondary to orthopedic procedure. PLAN: - continue home keppra - BP normal today, will continue to hold home meds today. Restart amlodipine tomorrow. - PT/OT recommending SNF, may be difficult due to substance use history. - resume home venlafaxine, confirm dosing - clonazepam as needed for now - consider resuming suboxone - IV fluids stopped. Cr improved to 0.9 today. - trend h/h Hg to 8.1 today after surgery Full resuscitation Inpatient status as her calorie require at least 2 midnights of hospital care. is proxy decision maker. Time-Based Coding :: [TOTAL MINUTES] spent with patient and on the chart (including review of chart, obtaining history, exam, reviewing outside data, placing orders, documenting exam and treatment plan, and counseling patient) on [DATE].
[2024-06-20 19:45] VITALS: O2SAT 100
[2024-06-20 20:00] VITALS: BP 145/93; PULSE 80; RESP 16; TEMP 36.2; O2SAT 97
[2024-06-20] MEDS: SENNOSIDES 8.6 MG TABLET 17.2 MG PO (20:47)
[2024-06-20] MEDS: SODIUM CHLORIDE 0.9% FLUSH 10 ML IV (20:48)
[2024-06-21] MEDS: HYDROMORPHONE 0.5 MG INJ IV ×3 (00:23→08:18)
[2024-06-21] MEDS: SODIUM CHLORIDE 0.9% FLUSH 10 ML IV ×4 (00:24→20:49)
[2024-06-21] MEDS: IBUPROFEN 600 MG TABLET PO ×4 (00:28→21:42)
[2024-06-21] MEDS: clonazePAM 0.5 MG TABLET 1 MG PO ×3 (02:32→20:32)
--- NOTE | 2024-06-21 02:34 | PC.NURSE ---
C/O anxiety & insomnia, reported takes Clonazepam 1 mg. twice a day @ home messaged Dr. Sean Estrada & order received 1 mg. PO administered. Will monitor & continue plan of care.
[2024-06-21] MEDS: HYDROMORPHONE 2 MG TABLET PO ×3 (04:18→15:22)
[2024-06-21] MEDS: METHYLPHENIDATE 5 MG TABLET 20 MG PO ×2 (06:28→11:43)
--- NOTE | 2024-06-21 06:36 | PC.NURSE ---
Declined to have her reno catheter discontinue this morning. States will take it out later this morning. Will report to day RN.
[2024-06-21 07:00] VITALS: BP 140/101; PULSE 79; RESP 16; TEMP 36.8; O2SAT 100
[2024-06-21 07:10] LABS: BUN Creatinine Ratio 26.7 (6-22); Blood Urea Nitrogen 16 mg/dL (7-17); Calcium 9.1 mg/dL (8.4-10.2); Carbon Dioxide 28 mmol/L (22-32); Chloride 102 mmol/L (98-107); Estimated Glomerular Filt Rate > 60 mL/min (>60); Glucose 103 mg/dL (70-100); HEMOLYSIS 17 (0-50); Potassium 3.5 mmol/L (3.4-5.1); Sodium 135 mmol/L (137-145)
[2024-06-21 07:50] VITALS: O2SAT 98
--- NOTE | 2024-06-21 08:03 | P.PN_ITS ---
Subjective Subjective Interval history: Rupinder is a 48 year old female who is POD#2 s/p R hip ORIF w/ IMN for a right proximal femur fracture/subtrochanteric femur fracture by Dr. Mcintosh. This morning patient is tearful w/ any movement of the RLE, she states she is in a lot of pain and has a hard time controlling her pain since surgery. She lives at home w/ . Has not mobilized well w/ PT d/t poor pain control. Denies any numbness or tinling of the RLE. Denies SOB, CP, vomiting. Exam Vital Signs (past 8 hours): - 06/21/24 07:50 Pulse Oximetry 98 Oxygen Delivery Method Room Air Oxygen Flow Rate 0 Fraction of Inspired Oxygen 28 SaO2/FiO2 Ratio 339 Oxygen Delivery Method Room Air Oxygen Flow Rate 0 Narrative Exam Narrative: Patient lying in bed during our interview today, she is tearful w/ even very light/no pressure touch to the RLE. AOx3. Grossly normal alignment of the RLE with moderate swelling extending throughout the leg. Gross sensation intact throughout bilateral lower extremities. Calves soft and non-tender bilaterally. SCDs are on and functioning. Brisk capillary refill, pulses intact. Post-surgical dressing/Aquacel dressing clean, dry and intact over the right hip without drainage. Objective Labs 06/20/24 06:14 06/21/24 06:20 Labs: Laboratory Results - last 24 hr 06/21/24 06:20 Sodium 135 L Potassium 3.5 Chloride 102 Carbon Dioxide 28 BUN 16 Creatinine 0.60 Estimated GFR > 60 BUN/Creatinine Ratio 26.7 H Glucose 103 H Calcium 9.1 PFSH Medical History (Updated 06/19/24 @ 07:37 by Anusha Mcintosh MD) Depression (08/24/02) Hepatitis C, chronic (04/11/02) Social History marital status: household members: spouse and children Smoking Status: Never smoker Assessment & Plan Post-op Postoperative Procedures: Procedures Operation Date: 06/19/24 07:45 Actual Procedure Side Surgeon p Intramedullary Nailing Femur Right Anusha Mcintosh MD Postoperative day: 2 Postoperative status narrative: Poor pain control Postoperative plan narrative: 1) Discharge disposition per medicine. 2) Continue multimodal pain management, ice to the hip for additional pain control. 3) Continue to work w/ PT on mobilization, touchdown or 20 lb weight bearing with the right lower extremity x6 weeks. 4) Lovenox x4 weeks for DVT prophylaxis 5) Follow up at [facility] at 2 weeks post-op for X-Ray, wound check and staple removal.
[2024-06-21] MEDS: AMLODIPINE 5 MG TABLET 10 MG PO (08:17)
[2024-06-21] MEDS: levETIRAcetam 250 MG TABLET 1000 MG PO ×2 (08:18→20:32)
[2024-06-21] MEDS: DOCUSATE 100 MG CAPSULE PO ×2 (08:18→20:32)
[2024-06-21] MEDS: VENLAFAXINE ER 75 MG CAP PO (08:18)
[2024-06-21] MEDS: OXYCODONE ER 10 MG TAB 20 MG PO ×2 (08:18→20:32)
[2024-06-21] MEDS: ENOXAPARIN 40 MG/0.4 ML SYRINGE SUBCUT (08:19)
[2024-06-21] MEDS: polyethylene glycoL 3350 17 GM POWD.PACK PO (08:19)
[2024-06-21 08:39] LABS: Add Manual Diff / Slide Review NO; Basophils Absolute Auto 0 /uL (0-100); Basophils Percent Auto 0.7 % (0-2); Eosinophils Absolute Auto 0 /uL (0-450); Eosinophils Percent Auto 0.8 % (2-4); Hematocrit 23.5 % (36-46); Lymphocytes Absolute Auto 1300 /uL (1100-4500); Lymphocytes Percent Auto 22.8 % (25-40); Mean Corpuscular Hemoglobin 29.1 PG (26-34); Mean Corpuscular Volume 85.7 fL (80-100); Monocytes Absolute Auto 500 /uL (0-900); Monocytes Percent Auto 8.6 % (3-14); Neutrophils Absolute Auto 3900 /uL (1500-7000); Neutrophils Percent Auto 67.1 % (50-75); Platelet Count 243 X10^3/uL (150-400); Red Blood Cell Count 2.75 X10^6/uL (4.0-5.2); Red Cell Distribution Width 14.5 % (11.6-14.8); White Blood Cell Count 5.8 X10^3/uL (4.5-11.0)
--- NOTE | 2024-06-21 11:05 | PT.IPTN ---
Current Diagnoses Fracture of unspecified part of neck of right femur, initial encounter for closed fracture (06/18/24) Surgery Performed Operation Date: 06/19/24 07:45 Actual Procedures p Intramedullary Nailing Femur(Right) - Anusha Mcintosh MD Physical Therapy Treatment Note M2 PT-IP Current Condition Start: 06/19/24 13:35 Freq: NEEDED Status: Active Protocol: Document 06/19/24 15:31 MB (Rec: 06/19/24 16:09 MB [id number]) Physical Therapy Current Condition Current Condition Evaluation Date 06/19/24 Treatment Diagnosis R hip fracture s/p ORIF M3 PT-IP Subjective Start: 06/19/24 13:35 Freq: NEEDED Status: Active Protocol: Document 06/21/24 11:05 AB (Rec: 06/21/24 11:38 AB [id number]) Subjective Physical Therapy Visit Type Type Treatment Note Visit Start Time 11:05 Visit Stop Time 11:25 Number of NET MAKING SUPERVISOR Visits 0 Physical Therapy Visit Comments Patient Comments agreeable to do PT Therapy Pain Assessment Pain When Pain Assessed At Rest Pain Present Pain Present Pain Reported Location Right Hip Scale Used pain scale not stated Pain Behaviors Facial Grimacing,Guarding, Holding Area,Restlessness, Wincing Pain Management Techniques Apply Cold,Distraction, Modification of Treatment,Re- positioning,Timing of Activity with Medications M4 PT-IP Mobility and Gait Start: 06/19/24 13:35 Freq: NEEDED Status: Active Protocol: Document 06/21/24 11:05 AB (Rec: 06/21/24 11:38 AB [id number]) PT-Bed Mobility Assessment Supine to Sit Supine to Sit Minimal Assistance,Head of Bed Elevated,Bedrails PT-Transfer Assessment Sit to and From Stand Sit to and from Stand Minimal Assistance,1 Person Assistance,Use of Upper Extremities Equipment Transfer Assistive Device Gait Belt,Front Wheeled Walker Orthotic/Prosthetic Devices or Brace: No Transfers Transfer Destination Chair Transfer Technique ambulated Transfer Ability Level of Assist Minimal Assistance,1 Person Assistance,Use of Upper Extremities Comments Mobility Comments Pt supine in bed and agreeable to do PT. pt continues to c/ o R hip pain. completed supine to sit min A and cues. pt needed assistance to move RLE. completed sit to stand from EOB min A and ambulated in room using FWW min A ~ 12 ft. pt sat on the chair and agreed to stay up on the chair . refused further ambulation. positioned pt on the chair. call light and table within reach. chair alarm on and provided pt with ice packs. Gait Assessment Gait Gait Assistance Required: Minimum Assistance Distance (Feet) 12 Able to Maintain Weight Bearing Status Yes During Gait Assistive Devices Assistive Device Gait Belt,Front Wheeled Walker Orthotic/Prosthetic Devices or Brace: No Gait Deviations General Gait Pattern Decreased Stride Length, Decreased Feet Clearance Factors Limiting Gait Function Factors Limiting Gait Function Decreased Activity Tolerance, Decreased Strength,Limited Range of Motion,Pain,Poor Balance,Poor Safety Awareness M5 PT-IP Objective Assessments Start: 06/19/24 13:35 Freq: NEEDED Status: Active Protocol: Document 06/19/24 15:31 MB (Rec: 06/19/24 16:09 MB [id number]) Orientation Orientation/Cognition Level of Alertness Confusional State Orientation Name,Age,Birthday Safety Awareness Decreased Safety Awareness Comments Pt has trouble answering many orientation questions Gross Range of Motion Upper Extremity ROM Impairments Defer to OT Lower Extremity ROM Assessment Right Impaired Impairments RLE is functionally shorter than left in hook lying Strength Lower Extremity Strength Assessment Right Impaired Comments Strength Comments Pt does not tolerate ROM and MMT well today Coordination Assessment Gross Coordination Gross Coordination Impaired Sensation Assessment Comments Sensation Comments Pt does not follow sensory commands M6 PT-IP Treatment Start: 06/19/24 13:35 Freq: NEEDED Status: Active Protocol: Document 06/21/24 11:05 AB (Rec: 06/21/24 11:38 AB [id number]) Physical Therapy Treatment Education Education Provided Safety M7 PT-IP Assessment and Plan Start: 06/19/24 13:35 Freq: NEEDED Status: Active Protocol: Document 06/21/24 11:05 AB (Rec: 06/21/24 11:38 AB [id number]) PT Summary Assessment and Plan Potential Rehabilitation Potential Fair Summary Impairments Pain,ROM,Strength,Balance, Coordination,Sensation,Tone, Cognition,Bed Mobility, Transfers,Gait,Activity Tolerance Progress Towards Goals Slow Progress due to Pain,Slow Progress due to Activity Tolerance Assessment Summary pt progressing slowly with mobility requiring min A for bed mobility , transfers and ambulation using FWW. pt continues to have decrease activity tolerance with c/o increase R hip pain wiht movement affecting level of assistance and mobility. pt will require / assist and will benefit from SNF rehab. will continue to assess progress. Goals Bed Mobility Goal Independent Transfer Goal Independent,Front Wheeled Walker Gait Goal Independent,Front Wheel Walker Gait Distance 50 Days to Meet Goals 5 Frequency of Treatment Other frequency 1-2x/day Treatment Plan Physical Therapy Treatment Plan Bed Mobility Training,Transfer Training,Gait Training, Therapeutic Exercise,Balance Retraining,Post Op Education, Discharge Planning,Hot or Cold Pack,Neuromuscular Re-ed, Coordination Retraining,Manual Therapy Weight Bearing Status Weight Bearing Status Touch Down Weight Bearing Allowed Weight Bearing Amount (enter % RLE or #) (%) Recommendations To Nursing Amount of Assist Needed 1 Person Assist Discharge Recommendations PT Discharge Recommendations SNF Rehab Transportation Needs at Discharge Wheelchair/Cabulance
--- NOTE | 2024-06-21 13:55 | OT.IPNOTE ---
Pt states did not sleep well and not wanting to get up for OT at this time.
--- NOTE | 2024-06-21 14:39 | PM.PN.1 ---
Subjective Subjective Interval history: 48 year old female who was recently in our ICU for seizure activity, intubated, and transferred for further neurological evaluation admitted with a hip fracture. S/p repair on 06/19. With extended release morphine her pain control is a bit better today, did not feel any adjustments were necessary. Exam Vital Signs (past 8 hours): - 06/21/24 07:00 06/21/24 07:50 Temperature 98.2 F Pulse Rate 79 Respiratory Rate 16 Blood Pressure 140/101 H Pulse Oximetry 100 98 Oxygen Delivery Method Room Air Oxygen Flow Rate 0 Fraction of Inspired Oxygen 28 SaO2/FiO2 Ratio 339 Oxygen Delivery Method Room Air Oxygen Flow Rate 0 Narrative Exam Narrative: Patient lying in bed during our interview today, she is tearful w/ even very light/no pressure touch to the RLE. AOx3. Grossly normal alignment of the RLE with moderate swelling extending throughout the leg. Gross sensation intact throughout bilateral lower extremities. Calves soft and non-tender bilaterally. SCDs are on and functioning. Brisk capillary refill, pulses intact. Post-surgical dressing/Aquacel dressing clean, dry and intact over the right hip without drainage. Objective Labs 06/21/24 08:05 06/21/24 06:20 Labs: Laboratory Results - last 24 hr 06/21/24 06/21/24 06:20 08:05 WBC 5.8 RBC 2.75 L Hgb 8.0 L Hct 23.5 L MCV 85.7 MCH 29.1 MCHC 34.0 RDW 14.5 Plt Count 243 Neut % (Auto) 67.1 Lymph % (Auto) 22.8 L [place] % (Auto) 8.6 Eos % (Auto) 0.8 L Baso % (Auto) 0.7 Neut # (Auto) 3900 Lymph # (Auto) 1300 [place] # (Auto) 500 Eos # (Auto) 0 Baso # (Auto) 0 Sodium 135 L Potassium 3.5 Chloride 102 Carbon Dioxide 28 BUN 16 Creatinine 0.60 Estimated GFR > 60 BUN/Creatinine Ratio 26.7 H Glucose 103 H Calcium 9.1 PFSH Medical History (Updated 06/19/24 @ 07:37 by Anusha Mcintosh MD) Depression (08/24/02) Hepatitis C, chronic (04/11/02) Social History marital status: household members: spouse and children Smoking Status: Never smoker Assessment & Plan Assessment & Plan narrative: 1. Right femoral neck fracture, present on admission and active. 2. Ground level fall, present on admission and active. 3. Hepatitis-C, present on admission and active. 4. Pathologic fracture secondary to osteoporosis, present on admission and active. 5. Polysubstance abuse (methamphetamines, Suboxone, clonazepam, and alcohol), present on admission and active. 6. Anemia, which may be chronic or related to blood loss from fracture. Present on admission and active. 7. MÓNICA with creatinine 1.33, present on admission and active. 8. Hypertension, present on admission and active. 9. History of seizures. 10. Acute blood loss anemia secondary to orthopedic procedure. PLAN: - continue home keppra - BP normal today, will continue amlodipine and restart home metoprolol now tomorrow. - PT/OT recommending SNF, may be difficult due to substance use history. - resume home venlafaxine, confirm dosing - clonazepam as needed for now - consider resuming suboxone - IV fluids stopped. Cr improved to 0.6 today. - trend h/h. Hg to 8.0 today, similar to yesterday, will continue to follow. Full resuscitation Inpatient status as her calorie require at least 2 midnights of hospital care. is proxy decision maker. Time-Based Coding :: [TOTAL MINUTES] spent with patient and on the chart (including review of chart, obtaining history, exam, reviewing outside data, placing orders, documenting exam and treatment plan, and counseling patient) on [DATE].
--- NOTE | 2024-06-21 15:09 | PT.IPTN ---
Current Diagnoses Fracture of unspecified part of neck of right femur, initial encounter for closed fracture (06/18/24) Surgery Performed Operation Date: 06/19/24 07:45 Actual Procedures p Intramedullary Nailing Femur(Right) - Anusha Mcintosh MD Physical Therapy Treatment Note M2 PT-IP Current Condition Start: 06/19/24 13:35 Freq: NEEDED Status: Active Protocol: Document 06/19/24 15:31 MB (Rec: 06/19/24 16:09 MB [id number]) Physical Therapy Current Condition Current Condition Evaluation Date 06/19/24 Treatment Diagnosis R hip fracture s/p ORIF M3 PT-IP Subjective Start: 06/19/24 13:35 Freq: NEEDED Status: Active Protocol: Document 06/21/24 15:09 AB (Rec: 06/21/24 15:30 AB [id number]) Subjective Physical Therapy Visit Type Type Treatment Note Visit Start Time 15:09 Visit Stop Time 15:25 Number of RN HEMODIALYSIS CHARGE Visits 0 Physical Therapy Visit Comments Patient Comments agreeable to do PT Therapy Pain Assessment Pain When Pain Assessed At Rest Pain Present Pain Present Pain Reported Location Right Hip Scale Used pain scale not stated Pain Management Techniques Apply Cold,Distraction, Modification of Treatment,Re- positioning,Timing of Activity with Medications M4 PT-IP Mobility and Gait Start: 06/19/24 13:35 Freq: NEEDED Status: Active Protocol: Document 06/21/24 15:09 AB (Rec: 06/21/24 15:30 AB [id number]) PT-Transfer Assessment Sit to and From Stand Sit to and from Stand Minimal Assistance,1 Person Assistance,Use of Upper Extremities Equipment Transfer Assistive Device Gait Belt,Front Wheeled Walker Orthotic/Prosthetic Devices or Brace: No Comments Mobility Comments pt sitting on the chair and agreeable to do PT. completed sit to stand min A and cues. pt ambulated in room using FWW ~ 30 ft min to mod A with (+) LOB posteriorly needing mod A for recovery. pt requested to stay up on the chair. pt sat on EOB. educated pt on importance of decreasing RLe guarding and be able to bend R knee. completed heel slides x 4 with end range hold as tolerated ~ 3 -4 sec. positioned pt on the chair. Left pt with nurse. Gait Assessment Gait Gait Assistance Required: Minimum Assistance,Moderate Assistance,1 Person Assist Distance (Feet) 30 Able to Maintain Weight Bearing Status Yes During Gait Assistive Devices Assistive Device Gait Belt,Front Wheeled Walker Orthotic/Prosthetic Devices or Brace: No Gait Deviations General Gait Pattern Antalgic,Decreased Feet Clearance Factors Limiting Gait Function Factors Limiting Gait Function Decreased Activity Tolerance, Decreased Strength,Difficulty Following Directions,Limited Range of Motion,Pain,Poor Balance,Poor Safety Awareness M5 PT-IP Objective Assessments Start: 06/19/24 13:35 Freq: NEEDED Status: Active Protocol: Document 06/19/24 15:31 MB (Rec: 06/19/24 16:09 MB [id number]) Orientation Orientation/Cognition Level of Alertness Confusional State Orientation Name,Age,Birthday Safety Awareness Decreased Safety Awareness Comments Pt has trouble answering many orientation questions Gross Range of Motion Upper Extremity ROM Impairments Defer to OT Lower Extremity ROM Assessment Right Impaired Impairments RLE is functionally shorter than left in hook lying Strength Lower Extremity Strength Assessment Right Impaired Comments Strength Comments Pt does not tolerate ROM and MMT well today Coordination Assessment Gross Coordination Gross Coordination Impaired Sensation Assessment Comments Sensation Comments Pt does not follow sensory commands M6 PT-IP Treatment Start: 06/19/24 13:35 Freq: NEEDED Status: Active Protocol: Document 06/21/24 15:09 AB (Rec: 06/21/24 15:30 AB [id number]) Physical Therapy Treatment Exercises Exercises Heel Slides Education Education Provided Precautions,Safety M7 PT-IP Assessment and Plan Start: 06/19/24 13:35 Freq: NEEDED Status: Active Protocol: Document 06/21/24 15:09 AB (Rec: 06/21/24 15:30 AB [id number]) PT Summary Assessment and Plan Potential Rehabilitation Potential Fair Summary Impairments Pain,ROM,Strength,Balance, Coordination,Sensation,Tone, Cognition,Bed Mobility, Transfers,Gait,Activity Tolerance Progress Towards Goals Slow Progress due to Pain,Slow Progress - Other Assessment Summary pt progressing slowly with mobility but will continue to require 26/04 assist. pt will benefit from SNF rehab to improve overall strength and independence. Goals Bed Mobility Goal Independent Transfer Goal Independent,Front Wheeled Walker Gait Goal Independent,Front Wheel Walker Gait Distance 50 Days to Meet Goals 5 Frequency of Treatment Other frequency 1-2x/day Treatment Plan Physical Therapy Treatment Plan Bed Mobility Training,Transfer Training,Gait Training, Therapeutic Exercise,Balance Retraining,Post Op Education, Discharge Planning,Hot or Cold Pack,Neuromuscular Re-ed, Coordination Retraining,Manual Therapy Weight Bearing Status Weight Bearing Status Touch Down Weight Bearing Allowed Weight Bearing Amount (enter % RLE or #) (%) Recommendations To Nursing Amount of Assist Needed 1 Person Assist Discharge Recommendations PT Discharge Recommendations SNF Rehab Transportation Needs at Discharge Wheelchair/Cabulance
[2024-06-21 19:00] VITALS: BP 139/93; PULSE 90; RESP 18; TEMP 36.9; O2SAT 94
[2024-06-21] MEDS: SENNOSIDES 8.6 MG TABLET 17.2 MG PO (20:32)
[2024-06-21] MEDS: HYDROMORPHONE 2 MG TABLET 4 MG PO (20:33)
[2024-06-22] MEDS: IBUPROFEN 600 MG TABLET PO ×3 (03:27→20:13)
[2024-06-22] MEDS: HYDROMORPHONE 2 MG TABLET 4 MG PO ×4 (03:27→20:55)
[2024-06-22] MEDS: METHYLPHENIDATE 5 MG TABLET 20 MG PO ×2 (06:50→10:58)
[2024-06-22 07:56] VITALS: O2SAT 97
[2024-06-22 08:05] VITALS: BP 146/94; PULSE 89
[2024-06-22] MEDS: levETIRAcetam 250 MG TABLET 1000 MG PO ×2 (08:05→20:13)
[2024-06-22] MEDS: METOPROLOL ER 50 MG TABLET 100 MG PO (08:05)
[2024-06-22] MEDS: clonazePAM 0.5 MG TABLET 1 MG PO ×2 (08:06→20:14)
[2024-06-22] MEDS: AMLODIPINE 5 MG TABLET 10 MG PO (08:07)
[2024-06-22] MEDS: polyethylene glycoL 3350 17 GM POWD.PACK PO (08:07)
[2024-06-22] MEDS: OXYCODONE ER 10 MG TAB 20 MG PO ×2 (08:07→20:13)
[2024-06-22] MEDS: VENLAFAXINE ER 75 MG CAP PO (08:07)
[2024-06-22] MEDS: DOCUSATE 100 MG CAPSULE PO (08:07)
[2024-06-22] MEDS: ENOXAPARIN 40 MG/0.4 ML SYRINGE SUBCUT (08:07)
[2024-06-22] MEDS: SODIUM CHLORIDE 0.9% FLUSH 10 ML IV ×2 (08:08→20:56)
[2024-06-22 08:45] VITALS: BP 130/93; PULSE 79; RESP 14; TEMP 37.1; O2SAT 97
[2024-06-22 08:48] VITALS: BP 130/93; PULSE 79
--- NOTE | 2024-06-22 10:13 | PT.IPTN ---
Current Diagnoses Fracture of unspecified part of neck of right femur, initial encounter for closed fracture (06/18/24) Surgery Performed Operation Date: 06/19/24 07:45 Actual Procedures p Intramedullary Nailing Femur(Right) - Anusha Mcintosh MD Physical Therapy Treatment Note M2 PT-IP Current Condition Start: 06/19/24 13:35 Freq: NEEDED Status: Active Protocol: Document 06/19/24 15:31 MB (Rec: 06/19/24 16:09 MB [id number]) Physical Therapy Current Condition Current Condition Evaluation Date 06/19/24 Treatment Diagnosis R hip fracture s/p ORIF M3 PT-IP Subjective Start: 06/19/24 13:35 Freq: NEEDED Status: Active Protocol: Document 06/22/24 10:49 TS (Rec: 06/22/24 11:08 TS [id number]) Subjective Physical Therapy Visit Type Type Treatment Note Visit Start Time 10:13 Visit Stop Time 10:45 Number of SEED POTATO CUTTER Visits 1 Physical Therapy Visit Comments Patient Comments agreeable to do PT Therapy Pain Assessment Pain When Pain Assessed At Rest Pain Present Pain Present Pain Reported M4 PT-IP Mobility and Gait Start: 06/19/24 13:35 Freq: NEEDED Status: Active Protocol: Document 06/22/24 10:49 TS (Rec: 06/22/24 11:08 TS [id number]) PT-Bed Mobility Assessment Supine to Sit Supine to Sit Minimal Assistance,Head of Bed Elevated,Bedrails Scooting Scooting to Edge of Bed Standby Assistance PT-Transfer Assessment Sit to and From Stand Sit to and from Stand Contact Guard Assistance,1 Person Assistance,Use of Upper Extremities Equipment Transfer Assistive Device Gait Belt,Front Wheeled Walker Orthotic/Prosthetic Devices or Brace: No Comments Mobility Comments SEED POTATO CUTTER dons gait belt around foot for pt to assist RLE to EOB. Supine to sit HOB elevated SBA . STS with FWW CGA, pt maintains TTWB/NWB on RLE coming into standing. She ambulates ~40' in the room SBA TTWB/NWB. Pt requested to use the toilet. STS from toilet SBA with use of rail. Pt was left up in the chair, all needs met. Gait Assessment Gait Gait Assistance Required: Standby Assistance,1 Person Assist Distance (Feet) 40 Able to Maintain Weight Bearing Status Yes During Gait Assistive Devices Assistive Device Gait Belt,Front Wheeled Walker Gait Deviations General Gait Pattern Antalgic,Decreased Feet Clearance Factors Limiting Gait Function Factors Limiting Gait Function Decreased Activity Tolerance, Decreased Strength,Difficulty Following Directions,Limited Range of Motion,Pain,Poor Balance PT-Balance Assessment Sitting Balance and Reactions Static Sitting Balance Ability Good Dynamic Sitting Balance Ability Good Standing Balance and Reactions Static Standing Balance Ability Fair Dynamic Standing Balance Ability Fair Device Used FWW M5 PT-IP Objective Assessments Start: 06/19/24 13:35 Freq: NEEDED Status: Active Protocol: Document 06/19/24 15:31 MB (Rec: 06/19/24 16:09 MB [id number]) Orientation Orientation/Cognition Level of Alertness Confusional State Orientation Name,Age,Birthday Safety Awareness Decreased Safety Awareness Comments Pt has trouble answering many orientation questions Gross Range of Motion Upper Extremity ROM Impairments Defer to OT Lower Extremity ROM Assessment Right Impaired Impairments RLE is functionally shorter than left in hook lying Strength Lower Extremity Strength Assessment Right Impaired Comments Strength Comments Pt does not tolerate ROM and MMT well today Coordination Assessment Gross Coordination Gross Coordination Impaired Sensation Assessment Comments Sensation Comments Pt does not follow sensory commands M6 PT-IP Treatment Start: 06/19/24 13:35 Freq: NEEDED Status: Active Protocol: Document 06/22/24 10:49 TS (Rec: 06/22/24 11:08 TS [id number]) Physical Therapy Treatment Education Education Provided Precautions,Safety M7 PT-IP Assessment and Plan Start: 06/19/24 13:35 Freq: NEEDED Status: Active Protocol: Document 06/22/24 10:49 TS (Rec: 06/22/24 11:08 TS [id number]) PT Summary Assessment and Plan Potential Rehabilitation Potential Fair Summary Impairments Pain,ROM,Strength,Balance, Coordination,Sensation,Tone, Cognition,Bed Mobility, Transfers,Gait,Activity Tolerance Progress Towards Goals Slow Progress due to Pain,Slow Progress - Other Assessment Summary Pt is making some progress with her mobility but continues to be limited. She is Erica for supine to sit requiring assistance donning gait belt around foot. She ambulates ~40'SBA with FWW, demonstrates good awareness of wbering precautions. PT is recommending home with 24/7 assist and HHPT vs SNF. Pt would benefit from SNF to improve functional mobility before d/c home. Goals Bed Mobility Goal Independent Transfer Goal Independent,Front Wheeled Walker Gait Goal Independent,Front Wheel Walker Gait Distance 50 Days to Meet Goals 5 Frequency of Treatment Other frequency 1-2x/day Treatment Plan Physical Therapy Treatment Plan Bed Mobility Training,Transfer Training,Gait Training, Therapeutic Exercise,Balance Retraining,Post Op Education, Discharge Planning,Hot or Cold Pack,Neuromuscular Re-ed, Coordination Retraining,Manual Therapy Weight Bearing Status Weight Bearing Status Touch Down Weight Bearing Allowed Weight Bearing Amount (enter % RLE or #) (%) Recommendations To Nursing Amount of Assist Needed 1 Person Assist Discharge Recommendations PT Discharge Recommendations Home with 26/04 Assist Available,Home Health,SNF Rehab,Home vs SNF Transportation Needs at Discharge Private Vehicle,Wheelchair/ Cabulance
[2024-06-22] MEDS: HYDROMORPHONE 2 MG TABLET PO (11:55)
--- NOTE | 2024-06-22 12:23 | P.PN_ITS ---
Subjective Subjective Interval history: Rupinder is a 48 year old female who is POD#3 s/p R hip ORIF w/ IMN for a right proximal femur fracture/subtrochanteric femur fracture by Dr. Mcintosh. This morning patient states she is doing slightly better than yesterday but reports still being in a lot of pain. She lives at home w/ , no steps into the home. Was able to mobilize around her room w/ PT yesterday, she has been urinating w/o issue. Denies any numbness or tingling of the RLE. Denies fever, chills, chest pain, SOB, nausea, vomiting. Exam Vital Signs (past 8 hours): - 06/22/24 07:56 06/22/24 08:05 06/22/24 08:45 Temperature 98.7 F Pulse Rate 89 79 Respiratory Rate 14 Blood Pressure 146/94 H 130/93 H Pulse Oximetry 97 97 Oxygen Delivery Method Room Air Oxygen Flow Rate 0 0 06/22/24 08:48 Temperature Pulse Rate 79 Respiratory Rate Blood Pressure 130/93 H Pulse Oximetry Oxygen Delivery Method Oxygen Flow Rate Fraction of Inspired Oxygen 28 SaO2/FiO2 Ratio 339 Oxygen Delivery Method Room Air Oxygen Flow Rate 0 Narrative Exam Narrative: Patient lying in bed during our interview today, she moans w/ pain w/ even very light pressure to the RLE. AOx3. Grossly normal alignment of the RLE with moderate swelling extending throughout the leg. Gross sensation intact throughout bilateral lower extremities. Calves soft and non-tender bilaterally. SCDs are on and functioning. Brisk capillary refill, pulses intact. Post-surgical dressing/Aquacel dressing clean, dry and intact over the right hip without drainage. Objective Labs 06/21/24 08:05 06/21/24 06:20 [facility] Medical History (Updated 06/19/24 @ 07:37 by Anusha Mcintosh MD) Depression (08/24/02) Hepatitis C, chronic (04/11/02) Social History marital status: household members: spouse and children Smoking Status: Never smoker Assessment & Plan Post-op Postoperative Procedures: Procedures Operation Date: 06/19/24 07:45 Actual Procedure Side Surgeon p Intramedullary Nailing Femur Right Anusha Mcintosh MD Postoperative day: 3 Postoperative plan narrative: 1) Discharge disposition per medicine. 2) Continue multimodal pain management, ice to the hip for additional pain control. 3) Continue to work w/ PT on mobilization, touchdown or 20 lb weight bearing with the right lower extremity x6 weeks. 4) Lovenox x4 weeks for DVT prophylaxis 5) Follow up at [facility] [place] at 2 weeks post-op for X-Ray, wound check and staple removal.
[2024-06-22] MEDS: ACETAMINOPHEN 325 MG TABLET 975 MG PO (12:44)
[2024-06-22] MEDS: HYDROMORPHONE 0.5 MG INJ IV (12:44)
--- NOTE | 2024-06-22 13:39 | PM.PN.1 ---
Subjective Subjective Interval history: 48 year old female who was recently in our ICU for seizure activity, intubated, and transferred for further neurological evaluation admitted with a hip fracture. S/p repair on 06/19. With extended release morphine her pain control is a better, did not feel any adjustments were necessary again today. Difficult SNF placement has been denied from multiple SNFs thus far. Exam Vital Signs (past 8 hours): - 06/22/24 07:56 06/22/24 08:05 06/22/24 08:45 Temperature 98.7 F Pulse Rate 89 79 Respiratory Rate 14 Blood Pressure 146/94 H 130/93 H Pulse Oximetry 97 97 Oxygen Delivery Method Room Air Oxygen Flow Rate 0 0 06/22/24 08:48 Temperature Pulse Rate 79 Respiratory Rate Blood Pressure 130/93 H Pulse Oximetry Oxygen Delivery Method Oxygen Flow Rate Fraction of Inspired Oxygen 28 SaO2/FiO2 Ratio 339 Oxygen Delivery Method Room Air Oxygen Flow Rate 0 Narrative Exam Narrative: Gen: alert, no acute distress CV: RRR no m/r/g Pulm: CTA b/l Abd: S NT ND Ext: no edema Objective Labs 06/21/24 08:05 06/21/24 06:20 [facility] Medical History (Updated 06/19/24 @ 07:37 by Anusha Mcintosh MD) Depression (08/24/02) Hepatitis C, chronic (04/11/02) Social History marital status: household members: spouse and children Smoking Status: Never smoker Assessment & Plan Assessment & Plan narrative: 1. Right femoral neck fracture, present on admission and active. 2. Ground level fall, present on admission and active. 3. Hepatitis-C, present on admission and active. 4. Pathologic fracture secondary to osteoporosis, present on admission and active. 5. Polysubstance abuse (methamphetamines, Suboxone, clonazepam, and alcohol), present on admission and active. 6. Anemia, which may be chronic or related to blood loss from fracture. Present on admission and active. 7. MÓNICA with creatinine 1.33, present on admission and active. 8. Hypertension, present on admission and active. 9. History of seizures. 10. Acute blood loss anemia secondary to orthopedic procedure. PLAN: - continue home keppra - BP normal today, will continue amlodipine and metoprolol at home dosing today. - PT/OT recommending SNF, may be difficult due to substance use history. May need to continue to improve to the point of discharge home with home health. - resume home venlafaxine, confirm dosing - clonazepam as needed for now - consider resuming suboxone - IV fluids stopped. Cr improved to 0.6 and stopped trending. - trend h/h. Hg to 8.0 today similar to day prior. Repeat tomorrow. Full resuscitation Inpatient status as her calorie require at least 2 midnights of hospital care. is proxy decision maker. Dispo: recommended for SNF, though no current accepting facilities. Suspect will need to improve with continued PT/OT to recommendation for home with home health. Time-Based Coding :: [TOTAL MINUTES] spent with patient and on the chart (including review of chart, obtaining history, exam, reviewing outside data, placing orders, documenting exam and treatment plan, and counseling patient) on [DATE].
--- NOTE | 2024-06-22 15:08 | CM.DPC ---
DCP Cont: Per MD, pt making some progress and to work more with PT/OT to determine home vs SNF. SW made additional SNF referrals: [facility]- no due to UDS+ [facility]- no due to UDS+ [facility]- no due to insurance reimbursement [facility]- faxed, called a couple times and left msg regarding review. [facility]- decline at this time due to UDS+ [facility]- emailed and requested review for one time auth SW made HH referrals as backup: [facility]- do not serve [facility]- decline due to UDS+ [facility]- at capacity for Medicaid insurance Per HAND BLOCKER, pt made progress today with mobility and less assist needed but feel pt would still benefit from SNF but aware that pt may need to d/c home with spouse assist. Per RN/LEGAL INTERN, pt made vague statement about having concerns discharging home with spouse. SW met bedside with pt and explained role and updated on above. Pt remains agreeable to SNF if one can accept her but aware of the barriers of her insurance and UDS+ tox screen. Pt aware that if SNF cannot accept, then she would be agreeable to home and HH if one will accept her. Pt was able to discuss that her step dtr has a hx of brain cancer/tumor and strokes and therefore is w/c bound and needs quite a lot of physical assist and pt has been providing that to her but they are in the process with [facility] for her to move into [facility] but might still be a couple weeks to a month. Pt's spouse is about 20 years older and was recently diagnosed with Parkinsons but has been able to be mostly independent with ADLs but sounds like he might get overwhelmed easily. Pt denies any concerns for her safety at home but expressed her concern that she did not want to over-burden her taking care of their Dtr and herself. Pt confirms that [facility] [place] [facility] resources and felt that initially the support and tx started off well but has been less motivated/less connected recently. Pt initially had plans a while ago to do Inpt [facility] tx but determined that family had too many needs at this time. SW strongly encouraged pt to attempt to establish with MH or [facility] counselor for CG burnout, support, grief, coping skills and provided list of resources and pt very appreciative. She denies any S.I. or safety concerns at home. Plan: SW to follow closely for [facility] and Anupama James review to determine if any can accept vs likely need for plan of home with spouse and outpt PT. Resources provided for [facility]/MH supports. KADEEM Flores
--- NOTE | 2024-06-22 17:06 | OT.IPNOTE ---
Pt eating dinner and states to be going home tomorrow and has all equipment needs.
[2024-06-22 19:00] VITALS: BP 119/79; PULSE 82; RESP 18; TEMP 36.9; O2SAT 97
[2024-06-23] MEDS: HYDROMORPHONE 2 MG TABLET 4 MG PO ×2 (02:46→12:05)
[2024-06-23] MEDS: ACETAMINOPHEN 325 MG TABLET 975 MG PO (06:18)
[2024-06-23] MEDS: METHYLPHENIDATE 5 MG TABLET 20 MG PO ×2 (06:18→12:08)
[2024-06-23] MEDS: IBUPROFEN 600 MG TABLET PO ×2 (06:22→12:05)
[2024-06-23 06:35] LABS: Hematocrit 24.7 % (36-46); Hemoglobin 8.4 g/dL (12.0-16.0)
[2024-06-23 07:00] VITALS: BP 137/88; PULSE 66; RESP 16; TEMP 36.9; O2SAT 99
--- NOTE | 2024-06-23 07:28 | PM.PN.1 ---
Subjective Subjective Interval history: Interval history: 48 year old female who was recently in our ICU for seizure activity, intubated, and transferred for further neurological evaluation admitted with a hip fracture. S/p repair on 06/19. With extended release morphine her pain control is a better, did not feel any adjustments were necessary again today. Difficult SNF placement has been denied from multiple SNFs thus far. Exam Vital Signs (past 8 hours): Fraction of Inspired Oxygen 28 SaO2/FiO2 Ratio 339 Oxygen Delivery Method Room Air Oxygen Flow Rate 0 Narrative Exam Narrative: NAD, alert and oriented. Fluent speech. Lungs are clear, normal rate and effort. Heart is regular, no murmur gallop or rub. Abdomen is soft, non distended. Extremities are free of edema. Objective Labs 06/23/24 06:10 06/21/24 06:20 Labs: Laboratory Results - last 24 hr 06/23/24 06:10 Hgb 8.4 L Hct 24.7 L PFSH Medical History Depression (08/24/02) Hepatitis C, chronic (04/11/02) Social History marital status: household members: spouse and children Smoking Status: Never smoker Assessment & Plan Assessment & Plan narrative: 1. Right femoral neck fracture, present on admission and active. 2. Ground level fall, present on admission and active. 3. Hepatitis-C, present on admission and active. 4. Pathologic fracture secondary to osteoporosis, present on admission and active. 5. Polysubstance abuse (methamphetamines, Suboxone, clonazepam, and alcohol), present on admission and active. 6. Anemia, which may be chronic or related to blood loss from fracture. Present on admission and active. 7. MÓNICA with creatinine 1.33, present on admission and active. 8. Hypertension, present on admission and active. 9. History of seizures. 10. Acute blood loss anemia secondary to orthopedic procedure. PLAN: - continue home keppra - BP normal today, will continue amlodipine and metoprolol at home dosing today. - PT/OT recommending SNF, may be difficult due to substance use history. May need to continue to improve to the point of discharge home with home health. - resume home venlafaxine, confirm dosing - clonazepam as needed for now - consider resuming suboxone - IV fluids stopped. Cr improved to 0.6 and stopped trending. - trend h/h. Hg to 8.0 today similar to day prior. Repeat tomorrow. Full resuscitation Inpatient status as her calorie require at least 2 midnights of hospital care. is proxy decision maker. Dispo: recommended for SNF, though no current accepting facilities. Suspect will need to improve with continued PT/OT to recommendation for home with home health. Time-Based Coding :: [TOTAL MINUTES] spent with patient and on the chart (including review of chart, obtaining history, exam, reviewing outside data, placing orders, documenting exam and treatment plan, and counseling patient) on [DATE].
[2024-06-23 08:00] VITALS: O2SAT 97
[2024-06-23] MEDS: DOCUSATE 100 MG CAPSULE PO (08:06)
[2024-06-23] MEDS: polyethylene glycoL 3350 17 GM POWD.PACK PO (08:06)
[2024-06-23] MEDS: ENOXAPARIN 40 MG/0.4 ML SYRINGE SUBCUT (08:06)
[2024-06-23] MEDS: VENLAFAXINE ER 75 MG CAP 225 MG PO (08:06)
[2024-06-23 08:07] VITALS: BP 153/99; PULSE 74
[2024-06-23] MEDS: clonazePAM 0.5 MG TABLET 1 MG PO (08:07)
[2024-06-23] MEDS: levETIRAcetam 250 MG TABLET 1000 MG PO (08:07)
[2024-06-23] MEDS: HYDROMORPHONE 0.5 MG INJ IV (08:07)
[2024-06-23] MEDS: OXYCODONE ER 10 MG TAB 20 MG PO (08:07)
[2024-06-23] MEDS: METOPROLOL ER 50 MG TABLET 100 MG PO (08:07)
[2024-06-23] MEDS: SODIUM CHLORIDE 0.9% FLUSH 10 ML IV (08:08)
[2024-06-23] MEDS: AMLODIPINE 5 MG TABLET 10 MG PO (08:08)
[2024-06-23 08:44] VITALS: BP 137/88; PULSE 72
--- NOTE | 2024-06-23 10:40 | DIET.PN1 ---
Dietary Progress Note Assessment: Met w/ pt at bedside, was sleepy. Opened Ensure at bedside, reports tolerating them well. Unsure about usual po intakes. Declined NFPE at this time. Ht: 160.02 cm Wt: 47.627 kg BMI: 18.6 UBW: 54.54 per pt 1 m ago (-13% weight loss in 1 m, severe); 55.5 kg on 05/16/24 per EMR Last BM: 06/16/24 (06/19/24 07:30) MNA: 10 Marcello Score: 21 Diet: 06/19/24 Lunch General (Regular) Diet Diet Modifications: Food Texture: Level 7 - Regular Liquid Consistency: Level 0 - Thin Nutrition Percent Meal Consumed 0% 06/23/24 06:00 Percent Meal Consumed 75% 06/22/24 18:00 Percent Meal Consumed 50% 06/21/24 18:35 Percent Meal Consumed 75% 06/21/24 17:13 Labs: RBC 2.75 X10^6/uL (4.0-5.2) L 06/21/24 08:05 Hgb 8.4 g/dL (12.0-16.0) L 06/23/24 06:10 Hct 24.7 % (36-46) L 06/23/24 06:10 Creatinine 0.60 mg/dL (0.52-1.04) 06/21/24 06:20 Nutrition Diagnosis: Unintentional weight loss r/t inadequate po intakes aeb 13% weight loss in 1 month Interventions: Continue ONS BID Monitoring/Evaluations: po intakes Electronically Signed by: Arin Plascencia 06/23/24 10:40 Clinical Dietitian [address] [id number]
--- NOTE | 2024-06-23 11:03 | PT.IPTN ---
Current Diagnoses Fracture of unspecified part of neck of right femur, initial encounter for closed fracture (06/18/24) Surgery Performed Operation Date: 06/19/24 07:45 Actual Procedures p Intramedullary Nailing Femur(Right) - Anusha Mcintosh MD Physical Therapy Treatment Note M2 PT-IP Current Condition Start: 06/19/24 13:35 Freq: NEEDED Status: Active Protocol: Document 06/19/24 15:31 MB (Rec: 06/19/24 16:09 MB [id number]) Physical Therapy Current Condition Current Condition Evaluation Date 06/19/24 Treatment Diagnosis R hip fracture s/p ORIF M3 PT-IP Subjective Start: 06/19/24 13:35 Freq: NEEDED Status: Active Protocol: Document 06/23/24 11:21 TS (Rec: 06/23/24 11:29 TS [id number]) Subjective Physical Therapy Visit Type Type Treatment Note Visit Start Time 11:03 Visit Stop Time 11:16 Number of LOADING MACHINE TOOL SETTER Visits 2 Physical Therapy Visit Comments Patient Comments Pt is agreeable to PT. Therapy Pain Assessment Pain When Pain Assessed At Rest Pain Present Pain Present Pain Reported M4 PT-IP Mobility and Gait Start: 06/19/24 13:35 Freq: NEEDED Status: Active Protocol: Document 06/23/24 11:21 TS (Rec: 06/23/24 11:29 TS [id number]) PT-Bed Mobility Assessment Supine to Sit Supine to Sit Standby Assistance,Head of Bed Elevated Scooting Scooting to Edge of Bed Standby Assistance PT-Transfer Assessment Sit to and From Stand Sit to and from Stand Standby Assistance,Use of Upper Extremities Equipment Transfer Assistive Device Gait Belt,Front Wheeled Walker Orthotic/Prosthetic Devices or Brace: No Comments Mobility Comments Supine to sit SBA, pt uses BUE support to assist LE to EOB. STS with FWW SBA, pt is NWB on RLE. LOADING MACHINE TOOL SETTER educated pt on TTWB status she does not have to be NWB. She ambulates TTWB on RLE with FWW, has no LOB and is steady. She performs STS SBA from toilet. She ambulates to chair. Pt was left sitting in the chair, all needs met. Gait Assessment Gait Gait Assistance Required: Standby Assistance,1 Person Assist Distance (Feet) 40 Able to Maintain Weight Bearing Status Yes During Gait Assistive Devices Assistive Device Gait Belt,Front Wheeled Walker Gait Deviations General Gait Pattern Antalgic,Decreased Feet Clearance Factors Limiting Gait Function Factors Limiting Gait Function Decreased Activity Tolerance, Decreased Strength,Difficulty Following Directions,Limited Range of Motion,Pain PT-Balance Assessment Sitting Balance and Reactions Static Sitting Balance Ability Good Dynamic Sitting Balance Ability Good Standing Balance and Reactions Static Standing Balance Ability Fair Dynamic Standing Balance Ability Fair Device Used FWW M5 PT-IP Objective Assessments Start: 06/19/24 13:35 Freq: NEEDED Status: Active Protocol: Document 06/19/24 15:31 MB (Rec: 06/19/24 16:09 MB [id number]) Orientation Orientation/Cognition Level of Alertness Confusional State Orientation Name,Age,Birthday Safety Awareness Decreased Safety Awareness Comments Pt has trouble answering many orientation questions Gross Range of Motion Upper Extremity ROM Impairments Defer to OT Lower Extremity ROM Assessment Right Impaired Impairments RLE is functionally shorter than left in hook lying Strength Lower Extremity Strength Assessment Right Impaired Comments Strength Comments Pt does not tolerate ROM and MMT well today Coordination Assessment Gross Coordination Gross Coordination Impaired Sensation Assessment Comments Sensation Comments Pt does not follow sensory commands M6 PT-IP Treatment Start: 06/19/24 13:35 Freq: NEEDED Status: Active Protocol: Document 06/23/24 11:21 TS (Rec: 06/23/24 11:29 TS [id number]) Physical Therapy Treatment Education Education Provided Precautions,Safety M7 PT-IP Assessment and Plan Start: 06/19/24 13:35 Freq: NEEDED Status: Active Protocol: Document 06/23/24 11:21 TS (Rec: 06/23/24 11:29 TS [id number]) PT Summary Assessment and Plan Potential Rehabilitation Potential Fair Summary Impairments Pain,ROM,Strength,Balance, Coordination,Sensation,Tone, Cognition,Bed Mobility, Transfers,Gait,Activity Tolerance Progress Towards Goals Slow Progress due to Pain,Slow Progress - Other Assessment Summary Rupinder is making progress with her mobility but is limited by pain and TTWB on RLE. She performs bed mobility SBA. She continues to ambulate with FWW in room. She has good awareness of her wbering status. PT is recommending home with 24/ care and outpatient PT. Pt is being denied HHPT and will need outpatient PT when appropriate. Goals Bed Mobility Goal Independent Transfer Goal Independent,Front Wheeled Walker Gait Goal Independent,Front Wheel Walker Gait Distance 50 Days to Meet Goals 5 Frequency of Treatment Other frequency 1-2x/day Treatment Plan Physical Therapy Treatment Plan Bed Mobility Training,Transfer Training,Gait Training, Therapeutic Exercise,Balance Retraining,Post Op Education, Discharge Planning,Hot or Cold Pack,Neuromuscular Re-ed, Coordination Retraining,Manual Therapy Weight Bearing Status Weight Bearing Status Touch Down Weight Bearing Allowed Weight Bearing Amount (enter % RLE or #) (%) Recommendations To Nursing Amount of Assist Needed 1 Person Assist Discharge Recommendations PT Discharge Recommendations Home with 26/04 Assist Available,Home Health, Outpatient PT Transportation Needs at Discharge Private Vehicle,Wheelchair/ Cabulance
--- NOTE | 2024-06-23 11:42 | DI.US.S_ITS ---
PROCEDURE: US PERIPH VENOUS LOW EXTREM RT INDICATIONS: EDEMA. POST OPERATIVE HIP. TECHNIQUE: Real-time imaging, as well as color and pulse Doppler interrogation, were performed of the lower extremity deep veins from the inguinal ligament to the popliteal fossa, with documentation of the visualized calf veins. COMPARISON: None. FINDINGS: No ultrasound evidence of deep vein thrombosis. The common femoral, femoral, popliteal, and the visualized calf veins are normally compressible, and free of intraluminal thrombus. Color and pulse Doppler demonstrate normal phasic intraluminal flow. There is normal augmentation response to distal compression maneuver. Incidental note is made of suspected right popliteal cyst 3.8 x 2.9 x 0.9 cm. IMPRESSION: No ultrasound evidence of deep vein thrombosis. Suspected right popliteal cyst 3.8 x 2.9 x 0.9 cm. Dictated by: Jason Smith M.D. on 06/23/2024 at 12:20 Approved by: Jason Smith M.D. on 06/23/2024 at 12:43
--- NOTE | 2024-06-23 13:58 | P.PN_ITS ---
Subjective Subjective Interval history: Rupinder is a 48 year old female who is POD#4 s/p R hip ORIF w/ IMN for a right proximal femur fracture/subtrochanteric femur fracture by Dr. Mcintosh. This morning patient states she is doing slightly better than yesterday but reports still being in a lot of pain. She lives at home w/ , no steps into the home. Was able to mobilize around her room w/ PT yesterday using a walker, she has been urinating w/o issue. Denies any numbness or tingling of the RLE. Denies fever, chills, chest pain, SOB, nausea, vomiting. Exam Vital Signs (past 8 hours): - 06/23/24 07:00 06/23/24 08:00 06/23/24 08:07 Temperature 98.5 F Pulse Rate 66 74 Respiratory Rate 16 Blood Pressure 137/88 153/99 H Pulse Oximetry 99 97 Oxygen Delivery Method Room Air Oxygen Flow Rate 0 0 06/23/24 08:44 Temperature Pulse Rate 72 Respiratory Rate Blood Pressure 137/88 Pulse Oximetry Oxygen Delivery Method Oxygen Flow Rate Fraction of Inspired Oxygen 28 SaO2/FiO2 Ratio 339 Oxygen Delivery Method Room Air Oxygen Flow Rate 0 Narrative Exam Narrative: Patient lying in bed during our interview today, she moans w/ pain w/ even very light pressure to the RLE. AOx3. Grossly normal alignment of the RLE with moderate swelling extending throughout the leg. Gross sensation intact throughout bilateral lower extremities. Calves soft and non-tender bilaterally. SCDs are on and functioning. Brisk capillary refill, pulses intact. Post-surgical dressing/Aquacel dressing clean, dry and intact over the right hip without drainage. Objective Labs 06/23/24 06:10 06/21/24 06:20 Labs: Laboratory Results - last 24 hr 06/23/24 06:10 Hgb 8.4 L Hct 24.7 L PFSH Medical History Depression (08/24/02) Hepatitis C, chronic (04/11/02) Social History marital status: household members: spouse and children Smoking Status: Never smoker Assessment & Plan Post-op Postoperative Procedures: Procedures Operation Date: 06/19/24 07:45 Actual Procedure Side Surgeon p Intramedullary Nailing Femur Right Anusha Mcintosh MD Postoperative day: 3 Postoperative plan narrative: 1) Discharge disposition per medicine. 2) Continue multimodal pain management, ice to the hip for additional pain control. 3) Continue to work w/ PT on mobilization, touchdown or 20 lb weight bearing with the right lower extremity x6 weeks. 4) Lovenox x4 weeks for DVT prophylaxis 5) Follow up at [facility] at 2 weeks post-op for X-Ray, wound check and staple removal. All of the patient's questions were answered and she is in agreement with the treatment plan. Call our office if any questions or concerns arise.
--- NOTE | 2024-06-23 14:16 | PM.DS.1 ---
History of Present Illness History of Present Illness Chief complaint: GLF, Hip Injury Narrative: The patient is a 48-year-old female with a history of drug abuse, hepatitis-C, depression, and hypertension. She was brought from her home by private vehicle for left hip pain after falling. She was recently admitted and discharged from [facility] several weeks ago for respiratory failure and apparently was intubated at that time. The patient tripped last night and fell injuring her hip. In the emergency department she was found to have a hip fracture. Orthopedics was called and they will see her for operative repair. She will be nothing by mouth at midnight. She is lethargic and does not really interact her speak. Her notes that she takes clonazepam and unknown quantity every day as well as Suboxone is occasionally and methamphetamines. He really can not quantify what, when, or how much she was taken. She was saturating fine was not hypoxemic. She did have a end tidal CO2 of 55-60 which would isolate. She was able to open her eyes and acknowledge my presence. No additional history is available. She lives in [place] with her and 1 additional family member. She drinks about 3 oz of alcohol a day. Discharge Providers Provider Date of admission: 06/18/24 17:51 Discharge Date: 06/23/24 Primary care physician: Andrew Kellogg MD Consults: 06/19/24 13:31 Consult to Discharge Planning Routine Comment: Consult to Occupational Therapy Evaluate & Treat Comment: Physician Instructions: Evaluate and treat Consult to Physical Therapy Evaluate & Treat Comment: ttwb RLE x 6weeks Physician Instructions: Evaluate and Treat Discharge provider: Octavio Rodriguez MD Summary Hospital Course Discharge Diagnosis: 1. Right femoral neck fracture, present on admission and improved. S/P ORIF with rachell. 2. Ground level fall, present on admission and active. 3. Hepatitis-C, present on admission and active. Stable. 4. Pathologic fracture secondary to osteoporosis, present on admission and active. 5. Polysubstance abuse (methamphetamines, Suboxone, clonazepam, and alcohol), present on admission and active. 6. Anemia, which may be chronic or related to blood loss from fracture. Present on admission and active. 7. MÓNICA with creatinine 1.33, present on admission and improved. 8. Hypertension, present on admission and active. 9. History of seizures. Stable. 10. Acute blood loss anemia secondary to orthopedic procedure. Stable. Hospital Course: The patient was a 48-year-old female with history of drug abuse, depression, hepatitis-C, and seizure disorder. She was admitted with a fall and hip fracture. She appeared to be encephalopathic and possibly under the influence of drugs when she arrived. Her urine tox was positive. She does take methamphetamines on a routine basis and is on Suboxone as well as clonazepam. She also drinks on a daily basis. She was admitted and stabilized and underwent operative repair with an intramedullary rachell. She actually did fairly well postoperatively other than some somnolence. She was placed on long-acting morphine in the postop period for pain control. Her home Keppra was continued. She did have blood loss from her fracture but did not require blood. custodial facilities were solicited but number able to accept the patient. She also was not accepted by any home health agencies. Ultimately she was felt by Physical therapy to be a reasonable candidate for home with family assistance, and a walker. Her family was comfortable with this plan, and she was felt to be stable for discharge on June 23. A duplex ultrasound of her right thigh was obtained in the day of discharge given her edema, this was negative for DVT. Status at Discharge Cognitive/behavioral status at discharge: oriented Functional status at discharge: uses cane/walker Overall status at discharge: patient is progressing back to baseline Time Spent with Patient Time spent: Greater than 30 minutes Exam Vital Signs (past 8 hours): - 06/23/24 07:00 06/23/24 08:00 06/23/24 08:07 Temperature 98.5 F Pulse Rate 66 74 Respiratory Rate 16 Blood Pressure 137/88 153/99 H Pulse Oximetry 99 97 Oxygen Delivery Method Room Air Oxygen Flow Rate 0 0 06/23/24 08:44 Temperature Pulse Rate 72 Respiratory Rate Blood Pressure 137/88 Pulse Oximetry Oxygen Delivery Method Oxygen Flow Rate Fraction of Inspired Oxygen 28 SaO2/FiO2 Ratio 339 Oxygen Delivery Method Room Air Oxygen Flow Rate 0 Narrative Exam Narrative: NAD, alert and oriented. Fluent speech. She appears to be doing well, is conversant and in no distress. Lungs are clear, normal rate and effort. Heart is regular, no murmur gallop or rub. Abdomen is soft, non distended. Extremities: The right thigh is swollen and likely consistent with hematoma, there is minimal swelling [id number]. Objective Imaging Multiple studies:: Radiologist's impression: Right leg duplex ultrasound: No ultrasound evidence of deep vein thrombosis. Suspected right popliteal cyst 3.8 x 2.9 x 0.9 cm. Hip x-ray: ORIF right intertrochanteric fracture in near anatomic alignment Pelvis CT: IMPRESSION: Severely comminuted fracture of the intertrochanteric region of the right femoral neck. Chest x-ray: No acute cardiopulmonary abnormality is seen. Head CT: No acute intracranial pathology. No acute calvarial fracture. Hip x-ray: Moderately comminuted, displaced intertrochanteric right femoral neck fracture. Labs 06/23/24 06:10 06/21/24 06:20 Labs: Laboratory Results - last 24 hr 06/23/24 06:10 Hgb 8.4 L Hct 24.7 L PFSH Medical History Depression (08/24/02) Hepatitis C, chronic (04/11/02) Social History marital status: household members: spouse and children Smoking Status: Never smoker Discharge Assessment & Plan Assessment and Plan Assessment: 1. Right femoral neck fracture, present on admission and improved. S/P ORIF with rachell. 2. Ground level fall, present on admission and active. 3. Hepatitis-C, present on admission and active. Stable. 4. Pathologic fracture secondary to osteoporosis, present on admission and active. 5. Polysubstance abuse (methamphetamines, Suboxone, clonazepam, and alcohol), present on admission and active. 6. Anemia, which may be chronic or related to blood loss from fracture. Present on admission and active. 7. MÓNICA with creatinine 1.33, present on admission and improved. 8. Hypertension, present on admission and active. 9. History of seizures. Stable. 10. Acute blood loss anemia secondary to orthopedic procedure. Stable. Plan of Treatment: Discharge to home, pain medications and given for a short period of time which includes the extended release morphine, 15 Tablets. She will avoid Suboxone in the postoperative. Discharge Plan Discharge Plan Patient Disposition: Home Provider Discharge Comment: Stable for discharge home. Discharge orders & Medications Prescriptions: New hydromorphone 2 mg Tablet 4 mg PO Q4HR PRN (Reason: Pain, Severe (7-10)) Qty: 15 0RF oxycodone [OxyContin] 10 mg Tablet,Oral Only,Ext.Rel.12 Hr 20 mg PO BID Qty: 15 0RF Continued methylphenidate HCl 20 mg tablet 20 mg PO BID metoprolol succinate 100 mg tablet extended release 24 hr 100 mg PO DAILY amlodipine 10 mg tablet 10 mg PO DAILY lisinopril 40 mg tablet 40 mg PO DAILY venlafaxine 75 mg capsule,extended release 24hr 75 mg PO DAILY clonazepam 1 mg tablet 1 mg PO BID Patient Comments: thinks she overdose on this today but not 100% sure venlafaxine 150 mg capsule,extended release 24hr 150 mg PO DAILY Trexall 5 mg tablet 15 mg PO WEEKLY levetiracetam 1,000 mg tablet 1,000 mg PO BID Discontinued buprenorphine-naloxone [Suboxone] 8-2 mg film 2.5 film sublingual DAILY Patient Comments: spouse thinks pt overdose on this medication today. Medication counseling provided by Pharmacist: No Follow up/Referrals: Andrew Kellogg MD [Primary Care Provider] - Discharge Health Status Multidrug resistant organism: No MDRO Diet/Activity/Treatments Diet: Regular Skin/Wound/Dressing Care Report to your healthcare provider any signs of infection, such as:: chills, fever, increased pain, unusual drainage and unusual redness Visit Report/Discharge Packet Instructions: DI for Hip Fracture, DI for Prescription Opioid Use Stand Alone Forms: Patient Portal/API Discharge Data Primary Care Provider: Andrew Kellogg
--- NOTE | 2024-06-26 09:03 | CM.DPC ---
Late Entry: DCP Discharge Home Per MD, pt is medically stable to d/c home on 06/23/24 and no identified barriers to discharge. Per IT SECURITY CONSULTING DIRECTOR, pt made improvements and feel pt could d/c home with assist and HH. Unfortunately the two HH agencies that cover [place], [facility] , both declined pt due to her insurance and her positive UDS. SW attempted previously all [facility] and [facility] SNFs and they declined due to her insurance and positive UDS as well. Pt confirms she is agreeable with discharge home with spouse and step Dtr with disabilities and plans to attend outpt PT. Pt confirms she feels safe discharging home with spouse and denies any concerns at this time. Other staff aware of this patient from outpt setting a few months ago and had concerns about spouse's ability to provide care for pt due to control/MH issues but this SW and staff have not seen or heard these concerns while pt has been admitted. Pt already connected with [facility] MH/[facility] tx in [place]. No APS report made at this time as no signs or statements of concern by patient or witnessed by staff. KADEEM Flores
== END 2024-06-23 14:45 | disposition home or self-care (01) | DRG 308 ==
LOC: ED 16:13 → AC 17:52
PROVIDERS: Internal Medicine; Orthopaedic Surgery Foot and Ankle Surgery; Admitting Provider Hospitalist; Emergency Provider Emergency Medicine; Family Provider Registered Nurse Women's Health Care, Ambulatory; PCP Emergency Medicine; Referring Provider Emergency Medicine; Visit Provider Hospitalist
PROC: 0QS606Z Reposition Right Upper Femur with Intramedullary Internal Fixation Device, Open Approach (ICD-10-PCS; CPT 27245; principal; 2024-06-19 07:45)
DX: M80.051A Age-related osteoporosis with current pathological fracture, right femur, initial encounter for fracture (principal); N17.9 Acute kidney failure, unspecified; B19.20 Unspecified viral hepatitis C without hepatic coma; F10.10 Alcohol abuse, uncomplicated; F15.10 Other stimulant abuse, uncomplicated; F11.10 Opioid abuse, uncomplicated; F13.10 Sedative, hypnotic or anxiolytic abuse, uncomplicated; I10 Essential (primary) hypertension; Y90.0 Blood alcohol level of less than 20 mg/100 ml; D62 Acute posthemorrhagic anemia; F32.A Depression, unspecified; Z86.69 Personal history of other diseases of the nervous system and sense organs
CPT/HCPCS: 36415; 70450; 71045; 72192; 73502; 76000; 80048; 80053; 80305; 80320; 81001; 85014; 85018; 85025; 85610; 86850; 86900; 86901; 93971; 94762; 96374; 97116; 97161; 97167; 97530; 97535; 99284; 99285; J0136; J0171; J0690; J1100; J1170; J1650; J2250; J2405; J2704; J3010; J3410

== ENCOUNTER 2024-07-08 04:59 | Emergency (ER) | payer OTHER, MEDICAID, SELFPAY ==
[2024-05-18 12:38] VITALS: PULSE 69; RESP 18; O2SAT 95
[2024-06-18 20:00] VITALS: BMI 18.6
[2024-07-08] VITALS (11 sets, daily range): BP systolic 157–176; BP diastolic 98–110; PULSE 79–97; RESP 18–22; TEMP 36.3; O2SAT 99–100; BMI 20.3
--- NOTE | 2024-07-08 05:01 | DI.RAD.S_ITS ---
PROCEDURE: XR HIP W PEL IF DONE RT 2V INDICATIONS: post procedure R hip pain TECHNIQUE: 2 views of the hip were acquired. COMPARISON: [facility], [place], XR HIP W PEL IF DONE RT 2V, 06/19/2024, 9:31. FINDINGS: Bones: Instrumented right intertrochanteric fracture shows remodeling and evidence of healing. Pelvic ring is intact. Soft tissues: No suspicious soft tissue calcifications or masses. IMPRESSION: Stable instrumented right intertrochanteric healing fracture Approved by: Monster Verduzco M.D. on 07/08/2024 at 9:12
--- NOTE | 2024-07-08 05:10 | PC.NURSE ---
Placed a brief over purwic to keep pt dry around sutures from hip surgery
--- NOTE | 2024-07-08 05:14 | ED_ITS ---
HPI - General Adult <Ruddy Brand DO - Last Filed: 07/08/24 17:58> General Chief complaint: Extremity Problem,Nontraumatic Stated complaint: r hip pain Time Seen by Provider: 07/08/24 05:00 Source: patient Mode of arrival: EMS Limitations: no limitations History of Present Illness HPI narrative: Patient is a 48-year-old female. proximally 3 weeks ago the patient was seen here in this emergency department and subsequently admitted to the hospital for a subtrochanteric right femur fracture. She went to the operating room the next day. Was discharged home with instructions for 20 lb weight-bearing right lower extremity. She has a walker at home. She states that due to family events she was not been able to follow-up with the orthopedic surgeon. She states that a couple days ago she developed a generalized illness that she potentially thinks was COVID. She stated that over the past 24 hours she was had an increase in pain went she states swelling in her right thigh region. She has not fallen. Related Data Home Medications Medication Instructions Recorded Confirmed amlodipine 10 mg tablet 10 mg PO DAILY 05/16/24 06/18/24 clonazepam 1 mg tablet 1 mg PO BID 05/16/24 06/18/24 lisinopril 40 mg tablet 40 mg PO DAILY 05/16/24 06/18/24 methylphenidate HCl 20 mg tablet 20 mg PO BID 05/16/24 06/18/24 metoprolol succinate 100 mg 100 mg PO DAILY 05/16/24 06/18/24 tablet,extended release 24 hr venlafaxine 75 mg capsule,extended 75 mg PO DAILY 05/16/24 06/18/24 release 24 hr methotrexate sodium 5 mg tablet 15 mg PO WEEKLY 06/18/24 06/18/24 (Trexall) venlafaxine 150 mg 150 mg PO DAILY 06/18/24 06/18/24 capsule,extended release 24 hr levetiracetam 1,000 mg tablet 1,000 mg PO BID 06/19/24 06/19/24 Previous Rx's Medication Instructions Recorded hydromorphone 2 mg tablet 4 mg (2 x 2 mg) PO Q4HR PRN Pain, 06/23/24 Severe (7-10) #15 tabs oxycodone 10 mg tablet,crush 20 mg (2 x 10 mg) PO BID #15 tabs 06/23/24 resistant,extended release 12 hr (OxyContin) Allergies Allergy/AdvReac Type Severity Reaction Status Date / Time No Known Allergies Allergy Verified 06/18/24 16:11 Review of Systems <Ruddy Brand DO - Last Filed: 07/08/24 17:58> Constitutional Constitutional: Reports system reviewed and no additional complaints, except as documented Musculoskeletal Musculoskeletal: Reports system reviewed and no additional complaints, except as documented Integumentary/Breasts Skin/Breast: Reports system reviewed and no additional complaints, except as documented Patient History <Ruddy Brand DO - Last Filed: 07/08/24 17:58> Medical History Depression (08/24/02) Hepatitis C, chronic (04/11/02) Social History marital status: household members: spouse and children Smoking Status: Never smoker Smoking Status: Never smoker alcohol intake frequency: a few times a month Substance Use Type: crack/cocaine, heroin, amphetamines, opiates, IV drugs and methamphetamine Exam <Ruddy Brand DO - Last Filed: 07/08/24 17:58> Initial Vital Signs Initial Vital Signs: Vital Signs Temperature 97.4 F L 07/08/24 05:06 Pulse Rate 97 H 07/08/24 05:06 Respiratory Rate 22 07/08/24 05:06 Blood Pressure 176/110 H 07/08/24 05:06 Pulse Oximetry 100 07/08/24 05:06 Oxygen Delivery Method Room Air 07/08/24 05:06 [facility] Head: normal to inspection and normocephalic Resp Effort & Inspection: normal respiratory effort Cardio Rate: regular rate Skin Other: Well-healed surgical wounds in the lateral aspect of the right thigh with surgical avery still in place. No signs of infection. Neuro General: patient alert and patient awake Extrem Other: Surgical wounds right lateral thigh without signs of infection. <Caridad Lopez DO - Last Filed: 07/08/24 17:56> Initial Vital Signs Initial Vital Signs: Vital Signs Temperature 97.4 F L 07/08/24 05:06 Pulse Rate 97 H 07/08/24 05:06 Respiratory Rate 22 07/08/24 05:06 Blood Pressure 176/110 H 07/08/24 05:06 Pulse Oximetry 100 07/08/24 05:06 Oxygen Delivery Method Room Air 07/08/24 05:06 Course <DO Telma Jennings Last Filed: 07/08/24 17:58> Orders Ordered: ED Orders 07/08/24 09:05 CBC Auto Diff [Complete Blood Count AUTO DIFF] Stat CMP [Comprehensive Metabolic Panel] Stat CRP [C-Reactive Protein Quant] Stat ESR [Erythrocyte Sedimentation Rate] Stat Lactate (Lactic Acid) Stat Discontinued Medications Acetaminophen (Acetaminophen 325 Mg Tablet) 975 mg PO NOW ONE Stop: 07/08/24 07:26 Last Admin: 07/08/24 07:30 Dose: 975 mg Documented By: SPF Vital Signs Vital signs: Vital Signs - 8 hr 07/08/24 10:00 07/08/24 10:30 07/08/24 10:40 Pulse Rate 84 93 H Blood Pressure 169/105 H Pulse Oximetry 99 99 Oxygen Delivery Method Room Air <DO Telma Land Last Filed: 07/08/24 17:56> Orders Ordered: ED Orders 07/08/24 09:05 CBC Auto Diff [Complete Blood Count AUTO DIFF] Stat CMP [Comprehensive Metabolic Panel] Stat CRP [C-Reactive Protein Quant] Stat ESR [Erythrocyte Sedimentation Rate] Stat Lactate (Lactic Acid) Stat Discontinued Medications Acetaminophen (Acetaminophen 325 Mg Tablet) 975 mg PO NOW ONE Stop: 07/08/24 07:26 Last Admin: 07/08/24 07:30 Dose: 975 mg Documented By: SPF Vital Signs Vital signs: Vital Signs - 8 hr 07/08/24 10:00 07/08/24 10:30 07/08/24 10:40 Pulse Rate 84 93 H Blood Pressure 169/105 H Pulse Oximetry 99 99 Oxygen Delivery Method Room Air Medical Decision Making <DO Telma Jennings Last Filed: 07/08/24 17:58> Lab Data 07/08/24 09:05 07/08/24 09:05 Labs: Lab Results 07/08/24 Range/Units 09:05 WBC 5.2 (4.5-11.0) X10^3/uL RBC 3.44 L (4.0-5.2) X10^6/uL Hgb 10.0 L (12.0-16.0) g/dL Hct 29.3 L (36-46) % MCV 85.1 (80-100) fL MCH 29.2 (26-34) PG MCHC 34.3 (30-36) % RDW 14.5 (11.6-14.8) % Plt Count 443 H (150-400) X10^3/uL Neut % (Auto) 62.9 (50-75) % Lymph % (Auto) 28.3 (25-40) % [place] % (Auto) 4.4 (3-14) % Eos % (Auto) 3.6 (2-4) % Baso % (Auto) 0.8 (0-2) % Neut # (Auto) 3300 (7768-7011) /uL Lymph # (Auto) 1500 (0284-0860) /uL [place] # (Auto) 200 (0-900) /uL Eos # (Auto) 200 (0-450) /uL Baso # (Auto) 0 (0-100) /uL ESR 55 H (0-20) MM/HR Sodium 138 (137-145) mmol/L Potassium 2.9 L (3.4-5.1) mmol/L Chloride 100 (98-107) mmol/L Carbon Dioxide 31 (22-32) mmol/L BUN 10 (7-17) mg/dL Creatinine 0.50 L (0.52-1.04) mg/dL Estimated GFR > 60 (>60) mL/min BUN/Creatinine Ratio 20.0 (6-22) Glucose 108 H (70-100) mg/dL Lactate 1.1 (0.7-2.1) mmol/L Calcium 9.7 (8.4-10.2) mg/dL Total Bilirubin 0.5 (0.2-1.3) mg/dL AST 22 (14-36) IU/L ALT 12 (<35) IU/L Alkaline Phosphatase 82 (38-126) U/L C-Reactive Protein 1.2 H (<1.0) mg/dL Total Protein 7.3 (6.3-8.2) g/dL Albumin 4.1 (3.5-5.0) g/dL Globulin 3.2 (1.7-4.1) g/dL Albumin/Globulin Ratio 1.3 (1.0-2.8) MDM Narrative Medical decision making narrative: 2-1/2 weeks status post IM nail. No new trauma. Does have some swelling in the proximal lateral aspect of the thigh. The surgical avery were removed. Steri-Strips were placed over the areas of incomplete healing. There were no external signs infection. X-ray shows continued fracture. I discussed the case with Dr. Zaldivar with Orthopedic surgery. He was unable to look at the images. The operative surgeon is on-call in 2 hours. He recommended talking with the operative surgeon. Care turned over to Dr. Lopez at change of shift to follow up and disposition. <Caridad Lopez, DO - Last Filed: 07/08/24 17:56> Lab Data Labs: Lab Results 07/08/24 Range/Units 09:05 WBC 5.2 (4.5-11.0) X10^3/uL RBC 3.44 L (4.0-5.2) X10^6/uL Hgb 10.0 L (12.0-16.0) g/dL Hct 29.3 L (36-46) % MCV 85.1 (80-100) fL MCH 29.2 (26-34) PG MCHC 34.3 (30-36) % RDW 14.5 (11.6-14.8) % Plt Count 443 H (150-400) X10^3/uL Neut % (Auto) 62.9 (50-75) % Lymph % (Auto) 28.3 (25-40) % [place] % (Auto) 4.4 (3-14) % Eos % (Auto) 3.6 (2-4) % Baso % (Auto) 0.8 (0-2) % Neut # (Auto) 3300 (3030-6940) /uL Lymph # (Auto) 1500 (0259-2404) /uL [place] # (Auto) 200 (0-900) /uL Eos # (Auto) 200 (0-450) /uL Baso # (Auto) 0 (0-100) /uL ESR 55 H (0-20) MM/HR Sodium 138 (137-145) mmol/L Potassium 2.9 L (3.4-5.1) mmol/L Chloride 100 (98-107) mmol/L Carbon Dioxide 31 (22-32) mmol/L BUN 10 (7-17) mg/dL Creatinine 0.50 L (0.52-1.04) mg/dL Estimated GFR > 60 (>60) mL/min BUN/Creatinine Ratio 20.0 (6-22) Glucose 108 H (70-100) mg/dL Lactate 1.1 (0.7-2.1) mmol/L Calcium 9.7 (8.4-10.2) mg/dL Total Bilirubin 0.5 (0.2-1.3) mg/dL AST 22 (14-36) IU/L ALT 12 (<35) IU/L Alkaline Phosphatase 82 (38-126) U/L C-Reactive Protein 1.2 H (<1.0) mg/dL Total Protein 7.3 (6.3-8.2) g/dL Albumin 4.1 (3.5-5.0) g/dL Globulin 3.2 (1.7-4.1) g/dL Albumin/Globulin Ratio 1.3 (1.0-2.8) Imaging Data Extremity x-ray #1: Radiologist's Impression: PROCEDURE: XR FEMUR RT MIN 2V INDICATIONS: post operative pain TECHNIQUE: 2 views of the femur were acquired. COMPARISON: [facility], , XR HIP W PEL IF DONE RT 2V, 06/19/2024, 9:31. FINDINGS: Bones: Comminuted intertrochanteric fracture shows evidence of healing. Alignment of the fracture fragments remain unchanged from the prior exam. Intramedullary rachell and femoral neck compression screws are also stable. Normal bone mineralization. Soft tissues: No suspicious soft tissue calcifications or masses. IMPRESSION: Healing instrumented intertrochanteric fracture Note: This final report is concordant with the preliminary after-hours interpretation provided by [facility], [facility] Approved by: Monster Verduzco M.D. on 07/08/2024 at 8:50 Extremity x-ray #2: Radiologist's Impression: PROCEDURE: XR HIP W PEL IF DONE RT 2V INDICATIONS: post procedure R hip pain TECHNIQUE: 2 views of the hip were acquired. COMPARISON: [facility], , XR HIP W PEL IF DONE RT 2V, 06/19/2024, 9:31. FINDINGS: Bones: Instrumented right intertrochanteric fracture shows remodeling and evidence of healing. Pelvic ring is intact. Soft tissues: No suspicious soft tissue calcifications or masses. IMPRESSION: Stable instrumented right intertrochanteric healing fracture Approved by: Monster Verduzco M.D. on 07/08/2024 at 9:12 US - DVT: Radiologist's Impression: PROCEDURE: US PERIPH VENOUS LOW EXTREM RT INDICATIONS: EDEMA 2 WEEKS POST HIP SURGERY TECHNIQUE: Real-time imaging, as well as color and pulse Doppler interrogation, were performed of the lower extremity deep veins from the inguinal ligament to the popliteal fossa, with documentation of the visualized calf veins. COMPARISON: [facility], , PERIPH VENOUS LOW EXTREM RT, 06/23/2024, 11:57. FINDINGS: The common femoral, femoral, popliteal, and the visualized calf veins are normally compressible, and free of intraluminal thrombus. Color and pulse Doppler demonstrate normal phasic intraluminal flow. There is normal augmentation response to distal compression maneuver. IMPRESSION: No findings of lower extremity deep venous thrombosis. Dictated by: Jad Maki M.D. on 07/08/2024 at 8:24 Approved by: Jad Maki M.D. on 07/08/2024 at 8:24 [facility] Narrative Medical decision making narrative: 2-1/2 weeks status post IM nail. No new trauma. Does have some swelling in the proximal lateral aspect of the thigh. The surgical avery were removed. Steri-Strips were placed over the areas of incomplete healing. There were no external signs infection. X-ray shows continued fracture. I discussed the case with Dr. Zaldivar with Orthopedic surgery. He was unable to look at the images. The operative surgeon is on-call in 2 hours. He recommended talking with the operative surgeon. Care turned over to Dr. Lopez at change of shift to follow up and disposition. , patient signed out to me by Dr. Dang I have seen evaluated patient myself. Patient does quite a bit of swelling in her foot. Incision site does not appear infected there is no significant erythema. Awaiting for Dr. Mcintosh. We will get blood work and ultrasound to rule out DVT. She is been on Suboxone not wanting any further narcotics she got Toradol with EMS in his offered Tylenol now. 10:25 Dr. Mcintosh reviewed films no need for further workup reports that it is significant fracture and will just take time Patient offered anything further for prescriptions and medication for pain but declined Blood work reviewed no leukocytosis hemoglobin is 10.0/39.3 previously improved from 8.4/24.7, mild hypokalemia potassium is 2.9 she was previously 2.8, other electrolytes stable no MÓNICA CRP mild elevation at 1.2, ESR 55 Low suspicion for infection skin appears well she has no leukocytosis or fever. Mild elevation in inflammatory markers on clear significance at this time. May still be postoperative. Her pain is actually pretty well controlled here in the ED. orthopedics has been consulted no acute fracture Discharge Plan Departure Patient Disposition: Home Clinical Impression: Post-operative pain Instructions: Hip Fracture Activity Restrictions/Additional Instructions: *You have been diagnosed with postoperative pain *What to do: At this time ice as often as possible elevate continue orthopedic discharge instructions of using walker and weight-bearing status *Continue to take medications as directed *Follow up with your primary care provider in 2-3 days or call [phone] *Return to ER if you should have increasing pain redness fever or any new, worsening or concerning symptoms Prescriptions: No Action methylphenidate HCl 20 mg tablet 20 mg PO BID metoprolol succinate 100 mg tablet extended release 24 hr 100 mg PO DAILY amlodipine 10 mg tablet 10 mg PO DAILY lisinopril 40 mg tablet 40 mg PO DAILY venlafaxine 75 mg capsule,extended release 24hr 75 mg PO DAILY clonazepam 1 mg tablet 1 mg PO BID Patient Comments: thinks she overdose on this today but not 100% sure venlafaxine 150 mg capsule,extended release 24hr 150 mg PO DAILY Trexall 5 mg tablet 15 mg PO WEEKLY levetiracetam 1,000 mg tablet 1,000 mg PO BID hydromorphone 2 mg Tablet 4 mg PO Q4HR PRN (Reason: Pain, Severe (7-10)) Qty: 15 0RF oxycodone [OxyContin] 10 mg Tablet,Oral Only,Ext.Rel.12 Hr 20 mg PO BID Qty: 15 0RF Referrals: Andrew Kellogg MD [Primary Care Provider] - Stand Alone Forms: Patient Portal/API
--- NOTE | 2024-07-08 07:19 | DI.US.S_ITS ---
PROCEDURE: US PERIP VENOUS LOW EXTREM RT INDICATIONS: EDEMA 2 WEEKS POST HIP SURGERY TECHNIQUE: Real-time imaging, as well as color and pulse Doppler interrogation, were performed of the lower extremity deep veins from the inguinal ligament to the popliteal fossa, with documentation of the visualized calf veins. COMPARISON: [facility], [facility] VENOUS LOW EXTREM RT, 06/23/2024, 11:57. FINDINGS: The common femoral, femoral, popliteal, and the visualized calf veins are normally compressible, and free of intraluminal thrombus. Color and pulse Doppler demonstrate normal phasic intraluminal flow. There is normal augmentation response to distal compression maneuver. IMPRESSION: No findings of lower extremity deep venous thrombosis. Dictated by: Jad Maki M.D. on 07/08/2024 at 8:24 Approved by: Jad Maki M.D. on 07/08/2024 at 8:24
[2024-07-08] MEDS: ACETAMINOPHEN 325 MG TABLET 975 MG PO (07:30)
--- NOTE | 2024-07-08 08:19 | PC.NURSE ---
RN unable to collect blood d/t difficult lab draw. Lab was called to attempt draw and is coming up for draw. Provider notified.
[2024-07-08 09:10] LABS: Add Manual Diff / Slide Review NO; Basophils Absolute Auto 0 /uL (0-100); Basophils Percent Auto 0.8 % (0-2); Eosinophils Absolute Auto 200 /uL (0-450); Eosinophils Percent Auto 3.6 % (2-4); Hematocrit 29.3 % (36-46); Lymphocytes Absolute Auto 1500 /uL (1100-4500); Lymphocytes Percent Auto 28.3 % (25-40); Mean Corpuscular HGB Conc 34.3 % (30-36); Mean Corpuscular Hemoglobin 29.2 PG (26-34); Mean Corpuscular Volume 85.1 fL (80-100); Monocytes Absolute Auto 200 /uL (0-900); Monocytes Percent Auto 4.4 % (3-14); Neutrophils Absolute Auto 3300 /uL (1500-7000); Neutrophils Percent Auto 62.9 % (50-75); Platelet Count 443 X10^3/uL (150-400); Red Blood Cell Count 3.44 X10^6/uL (4.0-5.2); Red Cell Distribution Width 14.5 % (11.6-14.8); White Blood Cell Count 5.2 X10^3/uL (4.5-11.0)
[2024-07-08 09:21] LABS: Lactate (Lactic Acid) 1.1 mmol/L (0.7-2.1)
[2024-07-08 09:23] LABS: Alanine Aminotransferase 12 IU/L (<35); Albumin 4.1 g/dL (3.5-5.0); Albumin Globulin Ratio 1.3 (1.0-2.8); Alkaline Phosphatase 82 U/L (38-126); Aspartate Aminotransferase 22 IU/L (14-36); Bilirubin Total 0.5 mg/dL (0.2-1.3); Blood Urea Nitrogen 10 mg/dL (7-17); C-Reactive Protein Quant 1.2 mg/dL (<1.0); Calcium 9.7 mg/dL (8.4-10.2); Carbon Dioxide 31 mmol/L (22-32); Chloride 100 mmol/L (98-107); Estimated Glomerular Filt Rate > 60 mL/min (>60); Globulin 3.2 g/dL (1.7-4.1); Glucose 108 mg/dL (70-100); HEMOLYSIS 32 (0-50); Potassium 2.9 mmol/L (3.4-5.1); Sodium 138 mmol/L (137-145); Total Protein 7.3 g/dL (6.3-8.2)
[2024-07-08 09:27] LABS: Erythrocyte Sedimentation Rate 55 MM/HR (0-20)
== END 2024-07-08 10:54 | disposition home or self-care (01) ==
PROVIDERS: Emergency Provider Emergency Medicine; Family Provider Registered Nurse Women's Health Care, Ambulatory; PCP Emergency Medicine
DX: G89.18 Other acute postprocedural pain (principal); S72.001D Fracture of unspecified part of neck of right femur, subsequent encounter for closed fracture with routine healing; E87.6 Hypokalemia; R60.9 Edema, unspecified; Z79.899 Other long term (current) drug therapy
CPT/HCPCS: 73502; 73552; 80053; 83605; 85025; 85651; 86140; 93971; 99283; 99284

== ENCOUNTER 2025-04-12 16:06 | Observation (INO) | payer OTHER, SELFPAY ==
[2024-05-18 12:38] VITALS: PULSE 69; RESP 18; O2SAT 95
[2024-06-18 20:00] VITALS: BMI 18.6
[2025-04-12] VITALS (15 sets, daily range): BP systolic 126–164; BP diastolic 90–112; PULSE 73–119; RESP 12–27; TEMP 36.5–36.7; O2SAT 93–100; BMI 23.0
--- NOTE | 2025-04-12 16:27 | DI.CT.S_ITS ---
PROCEDURE: CT ANGIO HEAD AND NECK INDICATIONS: CVA TECHNIQUE: After the administration of intravenous contrast, 1 mm thick sections acquired from the aortic arch through the [place]. 3-dimensional xrylzck-giixxgveq-kxjrukxpit (MIP) and/or volume rendering reformats were acquired of the central intracranial vasculature and neck separately. For radiation dose reduction, the following was used: automated exposure control, adjustment of mA and/or kV according to patient size. COMPARISON: None. FINDINGS: Image quality: Diagnostic. Cerebral CT Angiogram: Internal carotid arteries: Small medially directed outpouching arising from the right ophthalmic ICA measuring 4 x 3 mm (5/118). No acute findings. Intracranial ICA are patent with no significant stenosis. No occlusion. Anterior cerebral arteries: Unremarkable. No significant stenosis. No occlusion. No aneurysm. Middle cerebral arteries: Unremarkable. No significant stenosis. No occlusion. No aneurysm. 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 No significant stenosis. No occlusion. No aneurysm. Basilar artery: Unremarkable. No significant stenosis. No occlusion. No aneurysm. Vertebral arteries: Unremarkable as visualized. Dural venous sinuses: Unremarkable given phase of enhancement. Other: Arterial phase appearance of the brain parenchyma is unremarkable. Enhancing lesion along the medial aspect of the right mandible measuring 1.5 x 0.8 cm (5/200). Neck CT Angiogram: Internal carotid arteries: Unremarkable. No significant stenosis. No dissection or occlusion. Common carotid arteries: Unremarkable. No significant stenosis. No dissection or occlusion. External carotid arteries: Unremarkable. No occlusion. Vertebral arteries: Unremarkable. No significant stenosis. No dissection or occlusion. Aortic Arch and Mediastinum: Partially visualized aortic arch unremarkable without evidence of aneurysm. Origins of the great vessels unremarkable. Other: Arterial phase soft tissues of the neck and chest are unremarkable. 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 Otherwise, no significant intracranial arterial abnormality is seen. No significant abnormality is seen within the arteries of the neck. Enhancing lesion adjacent to the medial aspect of the right mandible measuring 1.5 x 0.8 cm at the floor of the mouth. Mass is not excluded and ENT referral is recommended. Any quantitative measurements of stenosis were performed using NASCET criteria. Dictated by: Augusto Jennings M.D. on 04/12/2025 at 17:04 Approved by: Augusto Jennings M.D. on 04/12/2025 at 17:10
--- NOTE | 2025-04-12 16:27 | DI.CT.S_ITS ---
PROCEDURE: CT STROKE INDICATIONS: CVA TECHNIQUE: Noncontrast 4.5 mm thick angled axial sections acquired from the foramen magnum to the vertex, with coronal reformats. For radiation dose reduction, the following was used: automated exposure control, adjustment of mA and/or kV according to patient size. COMPARISON: None. FINDINGS: Image quality: Diagnostic. CSF spaces: Basal cisterns are patent. No extra-axial fluid collections. Ventricles are normal in size and shape. Brain: No midline shift. No intracranial mass effect or hemorrhage. Gonsalez- white matter interface is normal. Skull and face: Calvarium and visualized facial bones are intact, without suspicious lesions. Sinuses: Visualized sinuses and mastoids are clear. IMPRESSION: No acute intracranial pathology. Findings discussed with the ordering provider at the time of dictation. This study fulfills neurological imaging criteria for inclusion or exclusion of acute stroke therapies based on available published neurological imaging guidelines. Dictated by: Augusto Jennings M.D. on 04/12/2025 at 17:00 Approved by: Augusto Jennings M.D. on 04/12/2025 at 17:03
--- NOTE | 2025-04-12 16:27 | EKG_ITS ---
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
--- NOTE | 2025-04-12 16:30 | DI.RAD.S_ITS ---
PROCEDURE: XR CHEST 1V INDICATIONS: ams TECHNIQUE: One view of the chest was acquired. COMPARISON: [facility], CR, XR CHEST 1V, 06/18/2024, 16:44. FINDINGS: Surgical changes and devices: None. Lungs and pleura: Lungs are clear. No pleural effusions or pneumothorax. Mediastinum: Mediastinal contours appear normal. Heart size is normal. Bones and chest wall: No suspicious bony lesions. Overlying soft tissues appear unremarkable. IMPRESSION: No acute cardiopulmonary pathology. Dictated by: Hal Fuentes M.D. on 04/12/2025 at 16:57 Approved by: Hal Fuentes M.D. on 04/12/2025 at 16:57
[2025-04-12 16:47] LABS: Add Manual Diff / Slide Review NO; Hematocrit 33.5 % (36-46); Hemoglobin 11.4 g/dL (12.0-16.0); Lymphocytes Absolute Auto 2800 /uL (1100-4500); Mean Corpuscular HGB Conc 34.0 % (30-36); Mean Corpuscular Hemoglobin 29.9 PG (26-34); Mean Corpuscular Volume 87.9 fL (80-100); Platelet Count 647 X10^3/uL (150-400)
--- NOTE | 2025-04-12 16:47 | DI.MRI.S_ITS ---
PROCEDURE: MR HEAD/BRAIN WO CON INDICATIONS: rule out CVA TECHNIQUE: Noncontrast axial T1 spin echo, axial T2 fast spin echo, sagittal and axial FLAIR, coronal T2 fast spin echo, axial gradient echo, axial diffusion and ADC through the brain. COMPARISON: [facility], CT, CT STROKE, 04/12/2025, 16:33. FINDINGS: Image quality: Excellent. CSF Spaces: Basal cisterns are patent. No extra-axial fluid collections. Ventricles are normal in size and shape. Brain: No intracranial masses or hemorrhage. [place]/white matter interface is normal. Brainstem appears normal. Diffusion-weighted images demonstrate no acute infarct. No chronic ischemic insults. Normal intravascular flow voids are present. Skull and face: Calvarium has normal marrow signal. Orbits appear normal. Sinuses: Sinuses and mastoids are clear. IMPRESSION: No acute or subacute infarct. No acute intracranial abnormalities. Dictated by: Augusto Jennings M.D. on 04/12/2025 at 18:38 Approved by: Augusto Jennings M.D. on 04/12/2025 at 18:39
[2025-04-12 16:55] LABS: INR 0.9 (0.9-1.3); Prothrombin Time 10.7 SECONDS (9.4-12.5)
[2025-04-12] MEDS: DEXTROSE 50 % IN WATER 25 GM/50 ML SYRINGE IV (16:56)
[2025-04-12 16:57] LABS: PTT Partial Thromboplastin Tim 27 SECONDS (25.1-36.5)
[2025-04-12 17:03] LABS: Lactate (Lactic Acid) 1.0 mmol/L (0.7-2.1)
[2025-04-12 17:04] LABS: Acetaminophen < 10 ug/mL (10-30); Alanine Aminotransferase 18 IU/L (<35); Albumin 5.0 g/dL (3.5-5.0); Albumin Globulin Ratio 1.3 (1.0-2.8); Alkaline Phosphatase 162 U/L (38-126); Blood Urea Nitrogen 17 mg/dL (7-17); Calcium 10.4 mg/dL (8.4-10.2); Carbon Dioxide 29 mmol/L (22-32); Chloride 102 mmol/L (98-107); Creatine Kinase 47 U/L (30-135); Estimated Glomerular Filt Rate > 60 mL/min (>60); Ethanol (ETOH) < 10 mg/dL (<10); Globulin 4.0 g/dL (1.7-4.1); Glucose 85 mg/dL (70-99); HEMOLYSIS < 15 (0-50); Potassium 3.1 mmol/L (3.4-5.1); Salicylate 1.8 mg/dL (<20); Sodium 142 mmol/L (137-145); Total Protein 9.0 g/dL (6.3-8.2)
[2025-04-12 17:15] LABS: Troponin I < 0.012 ng/mL (0.01-0.034)
[2025-04-12 17:20] LABS: Procalcitonin < 0.030 ng/mL (<0.5)
[2025-04-12 17:33] LABS: Thyroid Stimulating Hormone 1.47 uIU/mL (0.47-4.68)
[2025-04-12 17:40] LABS: Appearance Urine UA CLEAR; Bilirubin Urine UA NEGATIVE (NEGATIVE); Color Urine UA YELLOW; Glucose Urine UA TRACE g/dL (Negative); Ketones Urine UA NEGATIVE (NEGATIVE); Leukocyte Esterase Urine UA NEGATIVE (NEGATIVE); Nitrite Urine UA NEGATIVE (Negative); Occult Blood Urine UA NEGATIVE (Negative); Protein Urine UA NEGATIVE (Negative); Specific Gravity Urine UA <=1.005 (1.000-1.035); Urobilinogen Urine UA 0.2 E.U./dL (0.2)
[2025-04-12 17:47] LABS: pH Urine UA 7.0 (4.5-8.0)
[2025-04-12 17:48] LABS: Culture Indicated Urine Cult Not Indicated
[2025-04-12 17:49] LABS: UR Morphine/Opiate cutoff 300 Negative (Negative); Ur Specific Gravity Normal (Normal); Urine MDMA Negative (Negative); Urine Methamphetamines Negative (Negative); Urine Tetrahydrocannabinol Negative (Negative); Urine Tricyclic Antidepressant Negative (Negative)
--- NOTE | 2025-04-12 18:25 | ED_ITS ---
HPI - Neuro Symptoms/Deficit General Chief Complaint: Neuro Symptoms/Deficit Stated Complaint: High pulse X1 day, confusion, headache, numbness Time Seen by Provider: 04/12/25 16:15 Source: patient Mode of arrival: Ambulatory History of Present Illness HPI Narrative: Pleasant 49-year-old woman without history of stroke or [place] but who does have a history of seizure for which she no longer takes antiepileptics comes to the ER because of sudden onset of confusion, generalized weakness, difficulty speaking, slurred speech which began earlier today. She also reports a history of anxiety. Initially she did not report a history of seizures but after her mental status cleared after a couple hours in the ER she did report history of seizures and states that she discontinued her Keppra on her own and has not been following up with her neurologist, although she does have an upcoming appointment but she does not know exactly when it is. On Anticoagulants: No Related Data Home Medications ?Medication ?Instructions ?Recorded ?Confirmed amlodipine 10 mg tablet 10 mg PO DAILY 05/16/2406/04 clonazepam 1 mg tablet 1 mg PO BID 05/16/24 4 lisinopril 40 mg tablet 40 mg PO DAILY 05/16/2406/04 methylphenidate HCl 20 mg tablet 20 mg PO BID 05/16/24 06/18/24 metoprolol succinate 100 mg 100 mg PO DAILY 05/16/24 0 06/18/24 tablet,extended release 24 hr venlafaxine 75 mg capsule,extended 75 mg PO DAILY 05/0406/18/24 release 24 hr methotrexate sodium 5 mg tablet 15 mg PO WEEKLY 06/18/24 (Trexall) venlafaxine 150 mg 150 mg PO DAILY 06/18/24 capsule,extended release 24 hr levetiracetam 1,000 mg tablet 1,000 mg PO BID 06/19/24 06/19/24 Previous Rx's ?Medication ?Instructions ?Recorded hydromorphone 2 mg tablet 4 mg (2 x 2 mg) PO Q4HR PRN Pain, 06/23/24 Severe (7-10) #15 tabs oxycodone 10 mg tablet,crush 20 mg (2 x 10 mg) PO BID #15 tabs 06/23/24 resistant,extended release 12 hr (OxyContin) Allergies Allergy/AdvReac Type Severity Reaction Status Date / Time No Known Allergies Allergy Verified 06/18/24 16:11 Review of Systems Constitutional Constitutional: Denies chills, Denies fatigue, Denies fever(s), Reports headache(s), Denies lethargy, Denies night sweats and Reports weakness Eyes Eyes: Reports blurry vision, Reports change in vision, Denies diplopia, Denies eye discharge, Denies loss of peripheral vision, Denies photophobia and Denies spots in vision ENT Ears, Nose, Mouth, and Throat: Denies change in voice, Denies dysphagia, Denies dizziness, Denies facial pain, Reports headache(s), Denies hearing loss, Denies nasal congestion, Denies nasal discharge, Denies neck pain, Denies odynophagia, Denies disequilibrium and Denies sore throat Cardiovascular Cardiovascular: Denies chest pain, Denies irregular heart rhythm, Denies palpitations and Denies dyspnea Comments: noticed rapid HR on her pulse oximeter, no palpitations, dyhspnea, diaphoresis, or CP Respiratory Respiratory: Denies cough and Denies dyspnea Gastrointestinal Gastrointestinal: Denies hematochezia, Denies constipation, Denies dysphagia, Denies nausea, Denies odynophagia and Denies vomiting Genitourinary Genitourinary: Denies abnormal vaginal bleeding, Denies difficulty voiding, Denies dysuria, Denies urinary hesitancy and Denies urinary urgency Musculoskeletal Musculoskeletal: Denies neck pain Neurologic Neurologic: Denies dizziness, Reports headache(s), Denies disequilibrium and Reports weakness Endocrine Endocrine: Denies fatigue and Denies palpitations Hematologic/Lymphatic On Anticoagulants: No Patient History Medical History Depression (08/24/02) Hepatitis C, chronic (04/11/02) Social History marital status: household members: spouse and children Smoking Status: Never smoker alcohol intake frequency: a few times a month Exam Initial Vital Signs Initial Vital Signs: Vital Signs Temperature 98.1 F 04/12/25 16:15 Pulse Rate 114 H 04/12/25 16:15 Respiratory Rate 14 04/12/25 16:15 Blood Pressure 164/112 H 04/12/25 16:15 Pulse Oximetry 100 04/12/25 16:15 Oxygen Delivery Method Room Air 04/12/25 16:15 Const General: cooperative, No well groomed, No acute distress, anxious, No ill appearing and No lethargic Nutritional Appearance: well nourished Limitations: altered mental status [facility] Head: normocephalic, atraumatic, No contusion and No laceration Ears: TM normal on the right and TM normal on the left Face and sinus: normal facial exam and sinuses nontender Mouth: oral mucosae normal, oropharynx normal, moist mucous membranes and No mouth trauma [facility] Other: Patient is having abnormal and involuntary movements of the lips and tongue which resolved on re-evaluation. Eyes Periorbital: periorbital findings normal Eyelids: eyelids normal Conjunctivae: conjunctivae normal Sclera: sclerae normal Pupils: PERRL and normal by confrontation EOM: EOM intact bilaterally Direct ophthalmoscopy: normal light reflex Neck Neck: normal visual inspection, No anterior neck swelling, No lymphadenopathy, No positive Brudzinski's sign, No positive Kernig's sign, No tender, No JVD and No submandibular swelling Carotids: no bruits Resp Effort & Inspection: normal respiratory effort, able to speak in complete sentences, no audible wheezes, no cough and no respiratory distress Cardio Rate: regular rate Rhythm: regular rhythm Heart Sounds: S1 normal, S2 normal, no click, no gallops, no murmurs and no rubs Bruits: no carotid bruits GI Palpation: soft, No hepatomegaly, No mass and No tender Auscultation: normal bowel sounds Scores NIH Stroke Scale Level of Conciousness: Alert, keenly responsive Ask month/age: Answers both questions correctly. Open/close eyes, close hand: Performs both tasks correctly Best gaze horizontal: Normal Visual de paz: No visual loss Facial palsy: Minor paralysis, flattened nasolabial fold, asymmetry on smiling Left arm drift: Drifts down, not to bed Right arm drift: Drifts down, not to bed Left leg drift: Drifts down, not to bed Right leg drift: Drifts down, not to bed Limb ataxia: Absent Sensory on face/arms/legs: Normal, no sensory loss Best language: Mild to moderate, slurs some words Dysarthria: Mild to mod,some slurring Course Course Course Narrative: As soon as I saw the patient she was having some noticeable focal neurological deficits so activated stat stroke. Initially, she did not mention her seizure history. The case was discussed with the tele neurologist Dr. Kaur of [facility]. She recommended continuing with stroke evaluation including MRI. This was all done and there was no positive intracranial findings or cerebrovascular findings. There was noted a right-sided submandibular mass for which the radiologist recommended ENT follow-up. The patient and the hospitalist were advised of this. After the patient was re-evaluated and she was improving she then revealed her history of seizure disorder where she also stopped her Keppra on her own about 6 months ago. Therefore, she was loaded with Keppra. She will be admitted to the hospital for observation she was accepted by the hospitalist Dr. Rodriguez. She was also noted to have worsening thrombocytosis compared to her labs from last year. This should also be followed up on by her PCP. Decision to Admit Date: 04/12/25 Decision to Admit time: 18:30 Orders Ordered: ED Orders 04/12/25 16:20 Acetaminophen Stat Complete Blood Count AUTO DIFF Stat Comprehensive Metabolic Panel Stat Ethanol (ETOH) Stat Ethanol (ETOH) Stat Lactate (Lactic Acid) Stat PTT Partial Thromboplastin Cr Stat Procalcitonin Stat Prolactin Stat Prothrombin Time INR Stat Salicylate Stat Thyroid Stimulating Hormone Stat Troponin & CK Cardiac Panel Stat 04/12/25 16:[address] angio head and neck Stat EKG-12 Lead Stat 04/12/25 16:28 Osmolality, Serum Stat 04/12/25 16:30 XR chest 1V Stat 04/12/25 16:47 MR head/brain wo con Stat 04/12/25 17:28 Urinalysis and Microscopic Stat Urine Drug Screen, Rapid Stat Discontinued Medications Dextrose (Dextrose 50 % In Water 25 Gm/50 Ml Syringe) 25 gm IV NOW ONE Stop: 04/12/25 16:44 Last Admin: 04/12/25 16:56 Dose: 25 gm Documented By: ES Reevaluation(s) Reevaluation #1: Seen again after all imaging done (received 1amp D50 and oral ASA) smptoms dramatically im;proved Consultations Consultation #1: Dr. Nehemiah Yanez. Vital Signs Vital signs: Vital Signs - 8 hr 04/12/25 16:15 04/12/25 16:15 04/12/25 16:30 Temperature 98.1 F Pulse Rate 114 H 105 H 96 H Respiratory Rate 14 22 12 Blood Pressure 164/112 H Pulse Oximetry 100 100 100 Oxygen Delivery Method Room Air 04/12/25 17:00 04/12/25 17:02 04/12/25 17:02 Temperature Pulse Rate 96 H 99 H Respiratory Rate 15 16 Blood Pressure 134/97 H Pulse Oximetry 99 99 Oxygen Delivery Method 04/12/25 17:26 04/12/25 18:13 Temperature Pulse Rate 119 H Respiratory Rate 22 Blood Pressure 164/94 H Pulse Oximetry Oxygen Delivery Method MDM - Neuro Symptoms/Deficit Differential Diagnosis Differential diagnosis: Likely convulsions, delirium, subarachnoid hemorrhage, cerebrovascular accident, multiple sclerosis and transient cerebral ischemia Condition is:: Improved Chronic Condition is having:: Moderate exacerbation Lab Data 04/12/25 16:20 04/12/25 16:20 Labs: Lab Results 04/12/25 04/12/25 04/12/25 Range/Units 16:20 16:20 16:37 WBC 8.3 (4.5-11.0) X10^3/uL RBC 3.82 L (4.0-5.2) X10^6/uL Hgb 11.4 L (12.0-16.0) g/dL Hct 33.5 L (36-46) % MCV 87.9 (80-100) fL MCH 29.9 (26-34) PG MCHC 34.0 (30-36) % RDW 14.0 (11.6-14.8) % Plt Count 647 H (150-400) X10^3/uL Neut % (Auto) 55.9 (50-75) % Lymph % (Auto) 33.2 (25-40) % [place] % (Auto) 6.7 (3-14) % Eos % (Auto) 3.3 (2-4) % Baso % (Auto) 0.9 (0-2) % Neut # (Auto) 4600 (9477-2105) /uL Lymph # (Auto) 2800 (3031-3226) /uL [place] # (Auto) 600 (0-900) /uL Eos # (Auto) 300 (0-450) /uL Baso # (Auto) 100 (0-100) /uL PT 10.7 (9.4-12.5) SECONDS INR 0.9 (0.9-1.3) APTT 27 (25.1-36.5) SECONDS Sodium 142 (137-145) mmol/L Potassium 3.1 L (3.4-5.1) mmol/L Chloride 102 (98-107) mmol/L Carbon Dioxide 29 (22-32) mmol/L BUN 17 (7-17) mg/dL Creatinine 0.81 (0.52-1.04) mg/dL Estimated GFR > 60 (>60) mL/min BUN/Creatinine Ratio 21.0 (6-22) Glucose 85 (70-99) mg/dL POC Whole Bld Glucose 68 L (70-99) mg/dL Lactate 1.0 (0.7-2.1) mmol/L Calcium 10.4 H (8.4-10.2) mg/dL Total Bilirubin 0.4 (0.2-1.3) mg/dL AST 29 (14-36) IU/L ALT 18 (<35) IU/L Alkaline Phosphatase 162 H (38-126) U/L Total Creatine Kinase 47 (30-135) U/L Troponin I < 0.012 (0.01-0.034) ng/mL Total Protein 9.0 H (6.3-8.2) g/dL Albumin 5.0 (3.5-5.0) g/dL Globulin 4.0 (1.7-4.1) g/dL Albumin/Globulin Ratio 1.3 (1.0-2.8) Procalcitonin < 0.030 (<0.5) ng/mL TSH 1.47 (0.47-4.68) uIU/mL Prolactin 9.9 (3.0-18.6) ng/mL Urine Color Urine Appearance Urine pH (4.5-8.0) Ur Specific [place] (1.000-1.035) Urine Protein (Negative) Urine Glucose (UA) (Negative) g/dL Urine Ketones (NEGATIVE) Urine Occult Blood (Negative) Urine Nitrate (Negative) Urine Bilirubin (NEGATIVE) Urine Urobilinogen (0.2) E.U./dL Ur Leukocyte Esterase (NEGATIVE) Urine RBC (0-5/HPF) Urine WBC (0-5/HPF) Ur Squamous Epith Cells (0-5/HPF) Urine Bacteria (None) Ur Culture Indicated? Vol Urine Centrifuged Salicylates 1.8 (<20) mg/dL U Opiates 300ng/mL cut (Negative) Ur Oxycodone Screen (Negative) Urine Methadone Screen (Negative) Acetaminophen < 10 (10-30) ug/mL Ur Barbiturates Screen (Negative) U Tricyclic Antidepress (Negative) Ur Phencyclidine Scrn (Negative) Ur Amphetamines Screen (Negative) U Methamphetamines Scrn (Negative) Ur MDMA Scrn (Ecstasy) (Negative) U Benzodiazepines Scrn (Negative) Urine Cocaine Screen (Negative) U Marijuana (THC) Screen (Negative) Urine Specific [place] (Normal) Ethyl Alcohol < 10 < 10 (<10) mg/dL Ur Creatinine (Normal) 04/12/25 04/12/25 04/12/25 Range/Units 17:28 17:28 18:22 WBC (4.5-11.0) X10^3/uL RBC (4.0-5.2) X10^6/uL Hgb (12.0-16.0) g/dL Hct (36-46) % MCV (80-100) fL MCH (26-34) PG MCHC (30-36) % RDW (11.6-14.8) % Plt Count (150-400) X10^3/uL Neut % (Auto) (50-75) % Lymph % (Auto) (25-40) % [place] % (Auto) (3-14) % Eos % (Auto) (2-4) % Baso % (Auto) (0-2) % Neut # (Auto) (7472-9276) /uL Lymph # (Auto) (0799-2895) /uL [place] # (Auto) (0-900) /uL Eos # (Auto) (0-450) /uL Baso # (Auto) (0-100) /uL PT (9.4-12.5) SECONDS INR (0.9-1.3) APTT (25.1-36.5) SECONDS Sodium (137-145) mmol/L Potassium (3.4-5.1) mmol/L Chloride (98-107) mmol/L Carbon Dioxide (22-32) mmol/L BUN (7-17) mg/dL Creatinine (0.52-1.04) mg/dL Estimated GFR (>60) mL/min BUN/Creatinine Ratio (6-22) Glucose (70-99) mg/dL POC Whole Bld Glucose 116 H (70-99) mg/dL Lactate (0.7-2.1) mmol/L Calcium (8.4-10.2) mg/dL Total Bilirubin (0.2-1.3) mg/dL AST (14-36) IU/L ALT (<35) IU/L Alkaline Phosphatase (38-126) U/L Total Creatine Kinase (30-135) U/L Troponin I (0.01-0.034) ng/mL Total Protein (6.3-8.2) g/dL Albumin (3.5-5.0) g/dL Globulin (1.7-4.1) g/dL Albumin/Globulin Ratio (1.0-2.8) Procalcitonin (<0.5) ng/mL TSH (0.47-4.68) uIU/mL Prolactin (3.0-18.6) ng/mL Urine Color Yellow Urine Appearance Clear Urine pH 7.0 Normal (4.5-8.0) Ur Specific [place] <=1.005 (1.000-1.035) Urine Protein Negative (Negative) Urine Glucose (UA) Trace H (Negative) g/dL Urine Ketones Negative (NEGATIVE) Urine Occult Blood Negative (Negative) Urine Nitrate Negative (Negative) Urine Bilirubin Negative (NEGATIVE) Urine Urobilinogen 0.2 (0.2) E.U./dL Ur Leukocyte Esterase Negative (NEGATIVE) Urine RBC None seen (0-5/HPF) Urine WBC None seen (0-5/HPF) Ur Squamous Epith Cells 0-1 /hpf (0-5/HPF) Urine Bacteria None seen (None) Ur Culture Indicated? Cult not indicated Vol Urine Centrifuged 10ml (spun) Salicylates (<20) mg/dL U Opiates 300ng/mL cut Negative (Negative) Ur Oxycodone Screen Positive H (Negative) Urine Methadone Screen Negative (Negative) Acetaminophen (10-30) ug/mL Ur Barbiturates Screen Negative (Negative) U Tricyclic Antidepress Negative (Negative) Ur Phencyclidine Scrn Negative (Negative) Ur Amphetamines Screen Negative (Negative) U Methamphetamines Scrn Negative (Negative) Ur MDMA Scrn (Ecstasy) Negative (Negative) U Benzodiazepines Scrn Negative (Negative) Urine Cocaine Screen Negative (Negative) U Marijuana (THC) Screen Negative (Negative) Urine Specific [place] Normal (Normal) Ethyl Alcohol (<10) mg/dL Ur Creatinine Normal (Normal) Urine Dip Bedside Urine Glucose 100 mg/dl Bedside Urine Bilirubin - Negative Bedside Urine Ketone - Negative Urine Specific [place] 1.010 Bedside Urine Occult Blood - Negative Bedside Urine pH 6.5 Bedside Urine Protein - Negative Bedside Urine Urobilinogen - Negative Bedside Urine Nitrite - Negative Bedside Urine Leukocytes - Negative Esterase ECG Data Interpretation: Sinus Tach. 106bpm. No ST/T-wave abnormality. MDM Narrative Medical decision making narrative: Pt will be admitted for ongoing neurological evaluation. Likely seizure 2/2 pt stopping her Keppra on her own abotu 6mo ago. Stroke Core Measures Exclusion Criteria TPA in CVA: Symptom Onset >3 or 4.5 Hours Critical Care Time Critical Care Time Critical Care Time: Yes Total Critical Care Time: 30 Attestation: stat stroke Discharge Plan Departure Patient Disposition: Admitted as Observation Clinical Impression: Seizure-like activity Admit Date/Time: 04/12/25 18:45 Admit Provider: Octavio Rodriguez
[2025-04-12] MEDS: POTASSIUM CHLORIDE 20 MEQ TAB 40 MEQ PO (18:49)
--- NOTE | 2025-04-12 19:55 | PM.HP.1 ---
History of Present Illness History of Present Illness Date Patient Seen: 04/12/25 Time Patient Seen: 19:55 Chief complaint: High pulse X1 day, confusion, headache, numbness Narrative: 49-year-old female with past medical history of CVA, seizure disorder, hypertension, and anxiety presents with confusion and slurred speech. Per the patient's report, the patient has not been taking her Keppra for the last few months as she states that she ran out and did not have the medication refilled. Today, the patient started to have an acute onset of confusion and slurred speech a few hours prior to presenting to ER. The patient also has not been following up with her neurologist for her seizure medication. In addition to the confusion there was report of generalized weakness. Otherwise there is no other report of any focal weakness or facial drooping. Patient denies any fever, chills, nausea, vomiting, diarrhea, chest pain or shortness of breath. In our emergency room, the patient was hemodynamically stable. Labs showsplatelet of 647 potassium 3.1 blood glucose 68 negative alcohol level UA also negative. Drug screen relatively negative except for oxycodone. Due to time window of greater than 3 to 4 hours no tPA was given. It was thought that the patient might have a seizure disorder causing her neurologic symptoms of confusion and slurred speech. Patient stat CT scan of the head and CT angio head and neck shows no acute finding. 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 There is also a incidental lesion in the medial aspect of the right mandible measuring 1.5 x 0.8 cm at the floor of the mouth mass is not excluded and ENT referral was recommended. Of note brain MRI was also done which shows no acute intracranial abnormality. Neurologist on-call recommended that we load Keppra which was done in the ER. Admit the patient overnight to monitor neurostatus and for seizure activities. [facility] Medical History Depression (08/24/02) Hepatitis C, chronic (04/11/02) Social History marital status: household members: spouse and children Smoking Status: Never smoker alcohol intake: current Meds Home Medications and Allergies Home Medications ?Medication ?Instructions ?Recorded ?Confirmed ?Type amlodipine 10 mg tablet 10 mg PO DAILY 05/16/24 04/12/25 History clonazepam 1 mg tablet 1 mg PO BID 05/16/24 04/12/25 History methylphenidate HCl 20 mg tablet 20 mg PO BID 05/16/24 04/12/25 History venlafaxine 75 mg capsule,extended 75 mg PO DAILY 05/16/24 04/12/25 History release 24 hr venlafaxine 150 mg 150 mg PO DAILY 06/18/24 04/12/25 History capsule,extended release 24 hr levetiracetam 1,000 mg tablet 1,000 mg PO BID 06/19/24 04/12/25 History aspirin 81 mg tablet,delayed 81 mg PO BID 04/12/25 04/12/25 History release etanercept 50 mg/mL (1 mL) 50 mg SUBCUT WEEKLY 04/12/25 04/12/25 History subcutaneous pen injector (Enbrel SureClick) gabapentin 300 mg capsule 300 mg PO 3XD 04/12/25 04/12/25 History meloxicam 15 mg tablet 15 mg PO DAILY 04/12/25 04/12/25 History oxycodone 5 mg capsule 5 mg PO Q4-6H PRN pain 04/12/25 04/12/25 History polyethylene glycol 3350 17 17 g PO DAILY 04/12/25 04/12/25 History gram/dose oral powder Allergies Allergy/AdvReac Type Severity Reaction Status Date / Time No Known Allergies Allergy Verified 06/18/24 16:11 Review of Systems Review of Systems ROS: Yes All systems reviewed with the patient and are negative except as otherwise documented Exam Vital Signs (past 8 hours): - 04/12/25 16:15 04/12/25 16:15 04/12/25 16:30 Temperature 98.1 F Pulse Rate 114 H 105 H 96 H Respiratory Rate 14 22 12 Blood Pressure 164/112 H Pulse Oximetry 100 100 100 Oxygen Delivery Method Room Air 04/12/25 17:00 04/12/25 17:02 04/12/25 17:02 Temperature Pulse Rate 96 H 99 H Respiratory Rate 15 16 Blood Pressure 134/97 H Pulse Oximetry 99 99 Oxygen Delivery Method 04/12/25 17:26 04/12/25 18:13 04/12/25 18:21 Temperature Pulse Rate 119 H 94 H Respiratory Rate 22 Blood Pressure 164/94 H Pulse Oximetry 99 Oxygen Delivery Method 04/12/25 18:21 04/12/25 18:30 04/12/25 18:31 Temperature Pulse Rate 93 H Respiratory Rate 19 Blood Pressure 157/93 H 157/97 H Pulse Oximetry 100 Oxygen Delivery Method 04/12/25 18:31 04/12/25 19:00 Temperature Pulse Rate 92 H 96 H Respiratory Rate 21 18 Blood Pressure Pulse Oximetry 100 98 Oxygen Delivery Method Oxygen Delivery Method Room Air Narrative Exam Narrative: Physical Exam: GENERAL: The patient is not in any acute distressed. Awake and alert. HEENT: Nonicteric sclerae, PERRLA, EOMI. Oropharynx clear. Moist mucous membranes. Conjunctivae appear well perfused. HEART: Regular rate and rhythm without murmurs. No lower extremities edema. LUNGS: Clear to auscultation bilaterally. No wheezing, crackles or rhonchi ABDOMEN: Soft, positive bowel sounds, nontender. SKIN: No rash, no excessive bruising, petechiae, or purpura. NEUROLOGIC: AxO x 3. Cranial nerves II-XII intact without motor/sensory deficit. Objective Labs 04/12/25 16:20 04/12/25 16:20 Labs: Laboratory Results - last 24 hr 04/12/25 04/12/25 04/12/25 16:20 16:20 16:37 WBC 8.3 RBC 3.82 L Hgb 11.4 L Hct 33.5 L MCV 87.9 MCH 29.9 MCHC 34.0 RDW 14.0 Plt Count 647 H Neut % (Auto) 55.9 Lymph % (Auto) 33.2 Emmet % (Auto) 6.7 Eos % (Auto) 3.3 Baso % (Auto) 0.9 Neut # (Auto) 4600 Lymph # (Auto) 2800 Emmet # (Auto) 600 Eos # (Auto) 300 Baso # (Auto) 100 PT 10.7 INR 0.9 APTT 27 Sodium 142 Potassium 3.1 L Chloride 102 Carbon Dioxide 29 BUN 17 Creatinine 0.81 Estimated GFR > 60 BUN/Creatinine Ratio 21.0 Glucose 85 POC Whole Bld Glucose 68 L Lactate 1.0 Calcium 10.4 H Total Bilirubin 0.4 AST 29 ALT 18 Alkaline Phosphatase 162 H Total Creatine Kinase 47 Troponin I < 0.012 Total Protein 9.0 H Albumin 5.0 Globulin 4.0 Albumin/Globulin Ratio 1.3 Procalcitonin < 0.030 TSH 1.47 Prolactin 9.9 Urine Color Urine Appearance Urine pH Ur Specific [place] Urine Protein Urine Glucose (UA) Urine Ketones Urine Occult Blood Urine Nitrate Urine Bilirubin Urine Urobilinogen Ur Leukocyte Esterase Urine RBC Urine WBC Ur Squamous Epith Cells Urine Bacteria Ur Culture Indicated? Vol Urine Centrifuged Salicylates 1.8 U Opiates 300ng/mL cut Ur Oxycodone Screen Urine Methadone Screen Acetaminophen < 10 Ur Barbiturates Screen U Tricyclic Antidepress Ur Phencyclidine Scrn Ur Amphetamines Screen U Methamphetamines Scrn Ur MDMA Scrn (Ecstasy) U Benzodiazepines Scrn Urine Cocaine Screen U Marijuana (THC) Screen Urine Specific [place] Ethyl Alcohol < 10 < 10 Ur Creatinine 04/12/25 04/12/25 04/12/25 17:28 17:28 18:22 WBC RBC Hgb Hct MCV MCH MCHC RDW Plt Count Neut % (Auto) Lymph % (Auto) Emm[place] % (Auto) Eos % (Auto) Baso % (Auto) Neut # (Auto) Lymph # (Auto) Emm[place] # (Auto) Eos # (Auto) Baso # (Auto) PT INR APTT Sodium Potassium Chloride Carbon Dioxide BUN Creatinine Estimated GFR BUN/Creatinine Ratio Glucose POC Whole Bld Glucose 116 H Lactate Calcium Total Bilirubin AST ALT Alkaline Phosphatase Total Creatine Kinase Troponin I Total Protein Albumin Globulin Albumin/Globulin Ratio Procalcitonin TSH Prolactin Urine Color Yellow Urine Appearance Clear Urine pH 7.0 Normal Ur Specific [place] <=1.005 Urine Protein Negative Urine Glucose (UA) Trace H Urine Ketones Negative Urine Occult Blood Negative Urine Nitrate Negative Urine Bilirubin Negative Urine Urobilinogen 0.2 Ur Leukocyte Esterase Negative Urine RBC None seen Urine WBC None seen Ur Squamous Epith Cells 0-1 /hpf Urine Bacteria None seen Ur Culture Indicated? Cult not indicated Vol Urine Centrifuged 10ml (spun) Salicylates U Opiates 300ng/mL cut Negative Ur Oxycodone Screen Positive H Urine Methadone Screen Negative Acetaminophen Ur Barbiturates Screen Negative U Tricyclic Antidepress Negative Ur Phencyclidine Scrn Negative Ur Amphetamines Screen Negative U Methamphetamines Scrn Negative Ur MDMA Scrn (Ecstasy) Negative U Benzodiazepines Scrn Negative Urine Cocaine Screen Negative U Marijuana (THC) Screen Negative Urine Specific [place] Normal Ethyl Alcohol Ur Creatinine Normal Assessment & Plan Assessment & Plan narrative: Slurred speech and confusion. Admit the patient to medical telemetry under observation. Of note both CT and MRI of the brain shows no signs of stroke. Questionable could this be TIA versus initial seizure event. Status post Keppra loading in the ER. Continue oral Keppra twice daily. PT OT and ST. Continue aspirin. Hypertension. Monitor blood pressure and resume home medication accordingly. Anxiety. Resume home antianxiety medication. DVT prophylaxis heparin subcu. CODE STATUS full code. Disposition likely home in 1 to 2 days - As the provider of this telehealth evaluation, requested by the patient's evaluating physician, I attest that I introduced myself to the patient, provided my credentials and determined that telemedicine via a real-time, 2 way interactive audio and video platform is an appropriate and effective means of providing this service. - I reviewed the patient's chart and had a discussion with the member of the patient's treatment team. - The patient and I mutually agreed with continuation of this evaluation via telemedicine. The patient consented for the telemedicine evaluation. - This virtual encounter was taken place from [place] by Dr. Agusto Magana. The patient was evaluated at [facility]. The encounter was approximately 35 minutes. The nurse was present during the entire time of the encounter and was able to move the stethoscope in appropriate directions. Time-Based Coding :: [TOTAL MINUTES] spent with patient and on the chart (including review of chart, obtaining history, exam, reviewing outside data, placing orders, documenting exam and treatment plan, and counseling patient) on [DATE].
--- NOTE | 2025-04-12 19:56 | PC.NURSE ---
Report to Jose LADD
[2025-04-12] MEDS: SODIUM CHLORIDE 0.9% 1,000 ML 75 ML IV (21:21)
[2025-04-12] MEDS: HEPARIN 5,000 UNIT/ML VIAL 5000 UNIT SUBCUT (21:40)
[2025-04-12] MEDS: OXYCODONE IR 5 MG TABLET PO (21:41)
[2025-04-12] MEDS: GABAPENTIN 300 MG CAPSULE PO (21:41)
[2025-04-12] MEDS: POTASSIUM CHLORIDE IN WATER 10 MEQ/100 ML PIGGYBACK 100 MEQ IV ×3 (21:42→23:56)
[2025-04-13] VITALS: BP 118/81; PULSE 94; RESP 17; TEMP 36.6; O2SAT 98
[2025-04-13] MEDS: POTASSIUM CHLORIDE IN WATER 10 MEQ/100 ML PIGGYBACK 100 MEQ IV (01:00)
[2025-04-13] MEDS: OXYCODONE IR 5 MG TABLET PO ×4 (01:11→13:34)
[2025-04-13] MEDS: ACETAMINOPHEN 325 MG TABLET 650 MG PO ×2 (03:38→09:30)
[2025-04-13 04:00] VITALS: BP 118/87; PULSE 70; RESP 16; TEMP 36.1; O2SAT 98
[2025-04-13 06:56] LABS: Add Manual Diff / Slide Review NO; Hematocrit 27.7 % (36-46); Hemoglobin 9.4 g/dL (12.0-16.0); Lymphocytes Absolute Auto 2600 /uL (1100-4500); Mean Corpuscular HGB Conc 33.8 % (30-36); Mean Corpuscular Hemoglobin 30.1 PG (26-34); Mean Corpuscular Volume 88.8 fL (80-100); Platelet Count 472 X10^3/uL (150-400)
[2025-04-13 07:10] LABS: Blood Urea Nitrogen 12 mg/dL (7-17); Calcium 9.3 mg/dL (8.4-10.2); Carbon Dioxide 26 mmol/L (22-32); Chloride 109 mmol/L (98-107); Estimated Glomerular Filt Rate > 60 mL/min (>60); Glucose 96 mg/dL (70-99); HEMOLYSIS < 15 (0-50); Potassium 3.9 mmol/L (3.4-5.1); Sodium 141 mmol/L (137-145)
--- NOTE | 2025-04-13 07:10 | P.PN_ITS ---
Subjective Subjective Date Patient Seen: 04/13/25 Exam Vital Signs (past 8 hours): - 04/13/25 00:00 04/13/25 04:00 Temperature 97.9 F 97.0 F L Pulse Rate 94 H 70 Respiratory Rate 17 16 Blood Pressure 118/81 118/87 Pulse Oximetry 98 98 Oxygen Flow Rate 0 0 Oxygen Delivery Method Room Air Oxygen Flow Rate 0 Objective Labs 04/13/25 06:30 04/12/25 16:20 Labs: Laboratory Results - last 24 hr 04/12/25 04/12/25 04/12/25 16:20 16:20 16:37 WBC 8.3 RBC 3.82 L Hgb 11.4 L Hct 33.5 L MCV 87.9 MCH 29.9 MCHC 34.0 RDW 14.0 Plt Count 647 H Neut % (Auto) 55.9 Lymph % (Auto) 33.2 Drew % (Auto) 6.7 Eos % (Auto) 3.3 Baso % (Auto) 0.9 Neut # (Auto) 4600 Lymph # (Auto) 2800 Drew # (Auto) 600 Eos # (Auto) 300 Baso # (Auto) 100 PT 10.7 INR 0.9 APTT 27 Sodium 142 Potassium 3.1 L Chloride 102 Carbon Dioxide 29 BUN 17 Creatinine 0.81 Estimated GFR > 60 BUN/Creatinine Ratio 21.0 Glucose 85 POC Whole Bld Glucose 68 L Lactate 1.0 Calcium 10.4 H Total Bilirubin 0.4 AST 29 ALT 18 Alkaline Phosphatase 162 H Total Creatine Kinase 47 Troponin I < 0.012 Total Protein 9.0 H Albumin 5.0 Globulin 4.0 Albumin/Globulin Ratio 1.3 Procalcitonin < 0.030 TSH 1.47 Prolactin 9.9 Urine Color Urine Appearance Urine pH Ur Specific [place] Urine Protein Urine Glucose (UA) Urine Ketones Urine Occult Blood Urine Nitrate Urine Bilirubin Urine Urobilinogen Ur Leukocyte Esterase Urine RBC Urine WBC Ur Squamous Epith Cells Urine Bacteria Ur Culture Indicated? Vol Urine Centrifuged Salicylates 1.8 U Opiates 300ng/mL cut Ur Oxycodone Screen Urine Methadone Screen Acetaminophen < 10 Ur Barbiturates Screen U Tricyclic Antidepress Ur Phencyclidine Scrn Ur Amphetamines Screen U Methamphetamines Scrn Ur MDMA Scrn (Ecstasy) U Benzodiazepines Scrn Urine Cocaine Screen U Marijuana (THC) Screen Urine Specific [place] Ethyl Alcohol < 10 < 10 Ur Creatinine 04/12/25 04/12/25 04/12/25 17:28 17:28 18:22 WBC RBC Hgb Hct MCV MCH MCHC RDW Plt Count Neut % (Auto) Lymph % (Auto) Drew % (Auto) Eos % (Auto) Baso % (Auto) Neut # (Auto) Lymph # (Auto) Drew # (Auto) Eos # (Auto) Baso # (Auto) PT INR APTT Sodium Potassium Chloride Carbon Dioxide BUN Creatinine Estimated GFR BUN/Creatinine Ratio Glucose POC Whole Bld Glucose 116 H Lactate Calcium Total Bilirubin AST ALT Alkaline Phosphatase Total Creatine Kinase Troponin I Total Protein Albumin Globulin Albumin/Globulin Ratio Procalcitonin TSH Prolactin Urine Color Yellow Urine Appearance Clear Urine pH 7.0 Normal Ur Specific [place] <=1.005 Urine Protein Negative Urine Glucose (UA) Trace H Urine Ketones Negative Urine Occult Blood Negative Urine Nitrate Negative Urine Bilirubin Negative Urine Urobilinogen 0.2 Ur Leukocyte Esterase Negative Urine RBC None seen Urine WBC None seen Ur Squamous Epith Cells 0-1 /hpf Urine Bacteria None seen Ur Culture Indicated? Cult not indicated Vol Urine Centrifuged 10ml (spun) Salicylates U Opiates 300ng/mL cut Negative Ur Oxycodone Screen Positive H Urine Methadone Screen Negative Acetaminophen Ur Barbiturates Screen Negative U Tricyclic Antidepress Negative Ur Phencyclidine Scrn Negative Ur Amphetamines Screen Negative U Methamphetamines Scrn Negative Ur MDMA Scrn (Ecstasy) Negative U Benzodiazepines Scrn Negative Urine Cocaine Screen Negative U Marijuana (THC) Screen Negative Urine Specific [place] Normal Ethyl Alcohol Ur Creatinine Normal 04/12/25 04/13/25 21:17 06:30 WBC 6.0 RBC 3.11 L Hgb 9.4 L Hct 27.7 L MCV 88.8 MCH 30.1 MCHC 33.8 RDW 13.9 Plt Count 472 H Neut % (Auto) 40.6 L Lymph % (Auto) 44.4 H Drew % (Auto) 6.7 Eos % (Auto) 7.2 H Baso % (Auto) 1.1 Neut # (Auto) 2400 Lymph # (Auto) 2600 Drew # (Auto) 400 Eos # (Auto) 400 Baso # (Auto) 100 PT INR APTT Sodium Potassium Chloride Carbon Dioxide BUN Creatinine Estimated GFR BUN/Creatinine Ratio Glucose POC Whole Bld Glucose 123 H Lactate Calcium Total Bilirubin AST ALT Alkaline Phosphatase Total Creatine Kinase Troponin I Total Protein Albumin Globulin Albumin/Globulin Ratio Procalcitonin TSH Prolactin Urine Color Urine Appearance Urine pH Ur Specific [place] Urine Protein Urine Glucose (UA) Urine Ketones Urine Occult Blood Urine Nitrate Urine Bilirubin Urine Urobilinogen Ur Leukocyte Esterase Urine RBC Urine WBC Ur Squamous Epith Cells Urine Bacteria Ur Culture Indicated? Vol Urine Centrifuged Salicylates U Opiates 300ng/mL cut Ur Oxycodone Screen Urine Methadone Screen Acetaminophen Ur Barbiturates Screen U Tricyclic Antidepress Ur Phencyclidine Scrn Ur Amphetamines Screen U Methamphetamines Scrn Ur MDMA Scrn (Ecstasy) U Benzodiazepines Scrn Urine Cocaine Screen U Marijuana (THC) Screen Urine Specific [place] Ethyl Alcohol Ur Creatinine PFSH Medical History Depression (08/24/02) Hepatitis C, chronic (04/11/02) Social History marital status: household members: spouse and children Smoking Status: Never smoker alcohol intake: current Assessment & Plan Assessment & Plan narrative: Slurred speech and confusion. Admit the patient to medical telemetry under observation. Of note both CT and MRI of the brain shows no signs of stroke. Questionable could this be TIA versus initial seizure event. Status post Keppra loading in the ER. Continue oral Keppra twice daily. PT OT and ST. Continue aspirin. Hypertension. Monitor blood pressure and resume home medication accordingly. Anxiety. Resume home antianxiety medication. DVT prophylaxis heparin subcu. CODE STATUS full code. Disposition likely home in 1 to 2 days Time-Based Coding :: [TOTAL MINUTES] spent with patient and on the chart (including review of chart, obtaining history, exam, reviewing outside data, placing orders, documenting exam and treatment plan, and counseling patient) on [DATE]. Quality VTE Deep Vein Thrombosis/Pulmonary Embolism Present on Admission: No
[2025-04-13 08:00] VITALS: BP 122/84; PULSE 91; RESP 19; TEMP 36.5; O2SAT 96
[2025-04-13] MEDS: GABAPENTIN 300 MG CAPSULE PO ×2 (08:18→14:12)
[2025-04-13] MEDS: VENLAFAXINE ER 75 MG CAP PO (08:19)
[2025-04-13] MEDS: AMLODIPINE 5 MG TABLET 10 MG PO (08:19)
[2025-04-13] MEDS: HEPARIN 5,000 UNIT/ML VIAL 5000 UNIT SUBCUT (08:19)
[2025-04-13] MEDS: MELOXICAM 7.5 MG TABLET 15 MG PO (08:19)
[2025-04-13] MEDS: ASPIRIN EC 81 MG TABLET PO (08:19)
[2025-04-13] MEDS: VENLAFAXINE ER 75 MG CAP 225 MG PO (09:29)
--- NOTE | 2025-04-13 10:45 | OT.IPNOTE ---
Per pt going home and has not OT needs , therefore discharge OT eval orders.
--- NOTE | 2025-04-13 11:21 | PT.IIE ---
Addendum entered and electronically signed by Cathy Miller PT 04/13/25 12:32: e-sign Original Note: Medical History (Last Reviewed 07/08/24 @ 05:24 by Ruddy Brand DO) Depression (08/24/02) Hepatitis C, chronic (04/11/02) Physical Therapy Inpatient Evaluation/Re-Eval M1 PT/OT-IP Prior Functional Status Start: 04/13/25 11:06 Freq: NEEDED Status: Active Protocol: Document 04/13/25 11:08 DOCTOR OF NURSE ANESTHESIA (Rec: 04/13/25 11:21 DOCTOR OF NURSE ANESTHESIA [id number]) Medical Review Prior Functional Status Medical History Yes Reviewed Mobility and Gait assist at home with FWW since ROMULO 03/27/25 Social History Household Members spouse,children Living Arrangements House Number of Floors ( One Floor Floors) Number of Stairs To 0 Enter/Railing? M2 PT-IP Current Condition Start: 04/13/25 11:06 Freq: NEEDED Status: Active Protocol: Document 04/13/25 11:08 DOCTOR OF NURSE ANESTHESIA (Rec: 04/13/25 11:21 DOCTOR OF NURSE ANESTHESIA [id number]) Physical Therapy Current Condition Current Condition Evaluation Date 04/13/25 Treatment Diagnosis confusion and slurred speech, TIA vs seizure M3 PT-IP Subjective Start: 04/13/25 11:06 Freq: NEEDED Status: Active Protocol: Document 04/13/25 11:08 DOCTOR OF NURSE ANESTHESIA (Rec: 04/13/25 11:21 DOCTOR OF NURSE ANESTHESIA [id number]) Subjective Physical Therapy Visit Type Type Initial Evaluation Visit Start Time 09:50 Visit Stop Time 01:02 Therapy Pain Assessment Pain When Pain Assessed During Mobility Location Right Hip Intensity 3 Scale Used Numeric (0 - 10) M4 PT-IP Mobility and Gait Start: 04/13/25 11:06 Freq: NEEDED Status: Active Protocol: Document 04/13/25 11:08 DOCTOR OF NURSE ANESTHESIA (Rec: 04/13/25 11:21 DOCTOR OF NURSE ANESTHESIA [id number]) PT-Bed Mobility Assessment Supine to Sit Supine to Sit Independent PT-Transfer Assessment Sit to and From Stand Sit to and from Standby Assistance Stand Equipment Transfer Assistive Front Wheeled Walker Device Orthotic/Prosthetic No Devices or Brace: Transfers Transfer Destination Chair Transfer Technique Stand Step Pivot Transfer Ability Level of Assist Standby Assistance Gait Assessment Gait Gait Assistance Standby Assistance Required: Distance (Feet) 150 Assistive Devices Assistive Device Front Wheeled Walker Gait Deviations General Gait Pattern Decreased Stride Length,Step-to Gait Factors Limiting Gait Function Factors Limiting Decreased Strength,Pain Gait Function Comments Gait Comments recent R ROMULO 03/27, has not had HH PT yet PT-Balance Assessment Sitting Balance and Reactions Static Sitting Normal Balance Ability Dynamic Sitting Normal Balance Ability Standing Balance and Reactions Static Standing Normal Balance Ability Dynamic Standing Normal Balance Ability M5 PT-IP Objective Assessments Start: 04/13/25 11:06 Freq: NEEDED Status: Active Protocol: Document 04/13/25 11:08 DOCTOR OF NURSE ANESTHESIA (Rec: 04/13/25 11:21 DOCTOR OF NURSE ANESTHESIA [id number]) Orientation Orientation/Cognition Level of Alertness Alert Orientation Name,Date,Place,Situation Safety Awareness Understands Safety Issues Memory Description No Deficits Noted Gross Range of Motion Upper Extremity ROM Assessment Within Functional Limits Lower Extremity ROM Assessment Right Impaired Strength Upper Extremity Strength Assessment Within Functional Limits Lower Extremity Strength Assessment Right Impaired M6 PT-IP Treatment Start: 04/13/25 11:06 Freq: NEEDED Status: Active Protocol: Document 04/13/25 11:08 DOCTOR OF NURSE ANESTHESIA (Rec: 04/13/25 11:21 DOCTOR OF NURSE ANESTHESIA [id number]) Physical Therapy Treatment Education Education Provided Precautions Other Treatments Other Treatment gait training: VC for step to pattern and equal stride Performed length M7 PT-IP Assessment and Plan Start: 04/13/25 11:06 Freq: NEEDED Status: Active Protocol: Document 04/13/25 11:08 DOCTOR OF NURSE ANESTHESIA (Rec: 04/13/25 11:21 DOCTOR OF NURSE ANESTHESIA [id number]) PT Summary Assessment and Plan Potential Rehabilitation Excellent Potential Status of Condition Stable at Evaluation Summary Impairments ROM,Strength,Gait Goals Bed Mobility Goal Independent Transfer Goal Independent Gait Goal Independent,Front Wheel Walker Gait Distance 150' Days to Meet Goals 7 Frequency of Treatment Frequency Of Once a Day Treatment Treatment Plan Physical Therapy Bed Mobility Training,Transfer Training,Gait Training, Treatment Plan Therapeutic Exercise,Balance Retraining,Discharge Planning,Neuromuscular Re-ed Precautions Posterior Hip No Hip Flexion > 90 degrees,No Hip Internal Rotation,No Precautions Hip Adduction Recommendations To Nursing Amount of Assist Standby Assistance Needed Discharge Recommendations PT Discharge Home with Assistance,Home Health Recommendations Other Discharge resume HH Recommendations Equipment Needed for none, has FWW in room Home Before Discharge Transportation Needs Private Vehicle at Discharge
[2025-04-13 12:00] VITALS: BP 143/97; PULSE 86; RESP 16; TEMP 36.8; O2SAT 99
--- NOTE | 2025-04-13 12:48 | CM.DANOTE ---
DCP Assessment Note: Pt is a 49yo female, resident of [place], is admitted for concerns of altered mental status, headache, aphasia. Hx of seizure disorder, has not been compliant with Keppra due to no refill on med. Pt lives in a house with her and adult daughter. Pt's Primary Care Provider is Dr. Andrew Kellogg and insurance is [employer] . Reviewed chart and discussed with multidisciplinary team pt's medical status and initial discharge needs. Per hospitalist, pt to discharge home today if stable on resumed Keppra medication. Per RN, no discharge needs identified at this time and likely discharge home today. Plan: Anticipating dc home with spouse on 04/13 or when medically cleared. CM team will follow closely for coordination of discharge plans. 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 No History Provided By Patient,Family Member,Medical Record Prior Living House Arrangements Household Members spouse,children Type of Drives own vehicle transporation used prior to admit Independent with ADL Yes 's Is patient alert and Yes oriented? Caregiver for Yes Another Discharge Plan Home Transportation Spouse Arrangement Review Status In Process Please Provide Date 04/13/25 Initial DC Assessment Was Performed Next Review Type Continued Stay Review
[2025-04-13 17:12] VITALS: BP 132/88; PULSE 90; RESP 16; TEMP 37.1; O2SAT 96
--- NOTE | 2025-04-13 17:12 | P.DS_ITS ---
History of Present Illness History of Present Illness Date Patient Seen: 04/13/25 Time Patient Seen: 17:12 Chief complaint: High pulse X1 day, confusion, headache, numbness Narrative: 49-year-old female with past medical history of CVA, seizure disorder, hypertension, and anxiety presents with confusion and slurred speech. Per the patient's report, the patient has not been taking her Keppra for the last few months as she states that she ran out and did not have the medication refilled. Today, the patient started to have an acute onset of confusion and slurred speech a few hours prior to presenting to ER. The patient also has not been following up with her neurologist for her seizure medication. In addition to the confusion there was report of generalized weakness. Otherwise there is no other report of any focal weakness or facial drooping. Patient denies any fever, chills, nausea, vomiting, diarrhea, chest pain or shortness of breath. In our emergency room, the patient was hemodynamically stable. Labs showsplatelet of 647 potassium 3.1 blood glucose 68 negative alcohol level UA also negative. Drug screen relatively negative except for oxycodone. Due to time window of greater than 3 to 4 hours no tPA was given. It was thought that the patient might have a seizure disorder causing her neurologic symptoms of confusion and slurred speech. Patient stat CT scan of the head and CT angio head and neck shows no acute finding. 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 There is also a incidental lesion in the medial aspect of the right mandible measuring 1.5 x 0.8 cm at the floor of the mouth mass is not excluded and ENT referral was recommended. Of note brain MRI was also done which shows no acute intracranial abnormality. Neurologist on-call recommended that we load Keppra which was done in the ER. Admit the patient overnight to monitor neurostatus and for seizure activities. Discharge Providers Provider Date of admission: 04/12/25 18:45 Discharge Date: 04/13/25 Primary care physician: Andrew Kellogg MD Consults: 04/12/25 19:12 Consult to Occupational Therapy Evaluate & Treat Comment: Physician Instructions: Evaluate and treat Consult to Physical Therapy Evaluate & Treat Comment: Physician Instructions: Evaluate and Treat Discharge provider: Tangela Ansari MD Summary Hospital Course Hospital Course: Slurred speech and confusion. CT and MRI of the brain shows no signs of stroke. This was either a Migraine Equivalent, a TIA or a recurrent seizure event. Keppra was loaded in the ER. Resume Home dose of oral Keppra twice daily. Continue aspirin. Hypertension. Resumed home medications. Amlodipine Anxiety. Resumed home antianxiety medication. Gabapentin, Klonopin, methylphenidate and venlafaxine. Postop anemia: After her recent right hip replacement her hemoglobin remains low, 11.4 on admission and then 9.4 today, likely an inaccurate draw today but also she will be follow this up with her PCP. No overt signs of GI bleed or other anemia causes. We had her stay for most of the day today, finally releasing her at 5 p.m. when there was no signs of recurrent seizure, slurred speech, confusion. My inclination is that this was a migraine equivalent (she has a distant history of migraines in her 20s) but a recurrent seizure could certainly be the cause and hopefully resuming the Keppra will suppress that. I also talked with her about the CT scan that showed a right mandibular lesion and the right ICA 3 mm aneurysm. She will discuss referrals for those issues with her primary care, Dr. Cantu in [place]. CODE STATUS full code. Status at Discharge Cognitive/behavioral status at discharge: at baseline, oriented Functional status at discharge: uses cane/walker Overall status at discharge: patient is progressing back to baseline Exam Vital Signs (past 8 hours): - 04/13/25 12:00 Temperature 98.3 F Pulse Rate 86 Respiratory Rate 16 Blood Pressure 143/97 H Pulse Oximetry 99 Oxygen Flow Rate 0 Oxygen Delivery Method Room Air Oxygen Flow Rate 0 Narrative Exam Narrative: Alert and oriented x3. No apparent distress. Seed Pot[employer] Ar[employer]anger strength 3/5 left, 4/5 right, lower extremity plantar flexion equal 3/5. [id number] is normal. Cranial nerves 2-12 test intact. Objective Labs 04/13/25 06:30 04/13/25 06:30 Labs: Laboratory Results - last 24 hr 04/12/25 04/12/25 04/12/25 16:20 17:28 17:28 WBC RBC Hgb Hct MCV MCH MCHC RDW Plt Count Neut % (Auto) Lymph % (Auto) [place] % (Auto) Eos % (Auto) Baso % (Auto) Neut # (Auto) Lymph # (Auto) [place] # (Auto) Eos # (Auto) Baso # (Auto) Sodium Potassium Chloride Carbon Dioxide BUN Creatinine Estimated GFR BUN/Creatinine Ratio Glucose POC Whole Bld Glucose Calcium Troponin I < 0.012 Procalcitonin < 0.030 TSH 1.47 Prolactin 9.9 Urine Color Yellow Urine Appearance Clear Urine pH 7.0 Normal Ur Specific [place] <=1.005 Urine Protein Negative Urine Glucose (UA) Trace H Urine Ketones Negative Urine Occult Blood Negative Urine Nitrate Negative Urine Bilirubin Negative Urine Urobilinogen 0.2 Ur Leukocyte Esterase Negative Urine RBC None seen Urine WBC None seen Ur Squamous Epith Cells 0-1 /hpf Urine Bacteria None seen Ur Culture Indicated? Cult not indicated Vol Urine Centrifuged 10ml (spun) U Opiates 300ng/mL cut Negative Ur Oxycodone Screen Positive H Urine Methadone Screen Negative Ur Barbiturates Screen Negative U Tricyclic Antidepress Negative Ur Phencyclidine Scrn Negative Ur Amphetamines Screen Negative U Methamphetamines Scrn Negative Ur MDMA Scrn (Ecstasy) Negative U Benzodiazepines Scrn Negative Urine Cocaine Screen Negative U Marijuana (THC) Screen Negative Urine Specific [place] Normal Ur Creatinine Normal 04/12/25 04/12/25 04/13/25 18:22 21:17 06:30 WBC 6.0 RBC 3.11 L Hgb 9.4 L Hct 27.7 L MCV 88.8 MCH 30.1 MCHC 33.8 RDW 13.9 Plt Count 472 H Neut % (Auto) 40.6 L Lymph % (Auto) 44.4 H [place] % (Auto) 6.7 Eos % (Auto) 7.2 H Baso % (Auto) 1.1 Neut # (Auto) 2400 Lymph # (Auto) 2600 [place] # (Auto) 400 Eos # (Auto) 400 Baso # (Auto) 100 Sodium 141 Potassium 3.9 Chloride 109 H Carbon Dioxide 26 BUN 12 Creatinine 0.62 Estimated GFR > 60 BUN/Creatinine Ratio 19.4 Glucose 96 POC Whole Bld Glucose 116 H 123 H Calcium 9.3 Troponin I Procalcitonin TSH Prolactin Urine Color Urine Appearance Urine pH Ur Specific [place] Urine Protein Urine Glucose (UA) Urine Ketones Urine Occult Blood Urine Nitrate Urine Bilirubin Urine Urobilinogen Ur Leukocyte Esterase Urine RBC Urine WBC Ur Squamous Epith Cells Urine Bacteria Ur Culture Indicated? Vol Urine Centrifuged U Opiates 300ng/mL cut Ur Oxycodone Screen Urine Methadone Screen Ur Barbiturates Screen U Tricyclic Antidepress Ur Phencyclidine Scrn Ur Amphetamines Screen U Methamphetamines Scrn Ur MDMA Scrn (Ecstasy) U Benzodiazepines Scrn Urine Cocaine Screen U Marijuana (THC) Screen Urine Specific [place] Ur Creatinine PFSH Medical History Depression (08/24/02) Hepatitis C, chronic (04/11/02) Social History marital status: household members: spouse and children Smoking Status: Never smoker alcohol intake: current Discharge Plan Discharge Plan Patient Disposition: Home Provider Discharge Comment: Follow up this incident with Dr. Cantu. Resume taking your Keppra. Discharge orders & Medications Prescriptions: New levetiracetam 250 mg Tablet 1,000 mg PO BID Qty: 120 0RF Continued oxycodone 5 mg capsule 5 mg PO Q4-6H PRN (Reason: pain) gabapentin 300 mg capsule 300 mg PO 3XD Enbrel SureClick 50 mg/mL (1 mL) pen injector 50 mg SUBCUT WEEKLY Patient Comments: [NO ORIGINAL SIG] aspirin 81 mg tablet,delayed release (DR/EC) 81 mg PO BID meloxicam 15 mg tablet 15 mg PO DAILY polyethylene glycol 3350 17 gram/dose powder 17 g PO DAILY methylphenidate HCl 20 mg tablet 20 mg PO BID Patient Comments: 40 MG IN AM AND 20MG IN 1400 amlodipine 10 mg tablet 10 mg PO DAILY venlafaxine 75 mg capsule,extended release 24hr 75 mg PO DAILY clonazepam 1 mg tablet 1 mg PO BID Patient Comments: thinks she overdose on this today but not 100% sure venlafaxine 150 mg capsule,extended release 24hr 150 mg PO DAILY Discontinued levetiracetam 1,000 mg tablet 1,000 mg PO BID Patient Comments: HAS NOT TAKEN FOR ABOUT A MONTH Follow up/Referrals: Andrew Kellogg MD [Primary Care Provider, Emergency Medicine] Diet/Activity/Treatments Diet: Regular Visit Report/Discharge Packet Stand Alone Forms: Patient Portal/API, Stroke Signs & Symptoms Discharge Data Primary Care Provider: Andrew Kellogg Attending Provider: Octavio Rodriguez Admit Date/Time: 04/12/25 18:45 Quality VTE Deep Vein Thrombosis/Pulmonary Embolism Present on Admission: No
[2025-04-16 15:41] LABS: Osmolality, Serum 291 mOsmol/kg (275-295)
== END 2025-04-13 17:30 | disposition home or self-care (01) ==
LOC: ED 16:15 → AC 18:46
PROVIDERS: Internal Medicine; Admitting Provider Hospitalist; Emergency Provider Emergency Medicine; Family Provider Registered Nurse Women's Health Care, Ambulatory; PCP Emergency Medicine; Referring Provider Emergency Medicine; Visit Provider Hospitalist
DX: R41.0 Disorientation, unspecified (principal); R53.1 Weakness; R47.81 Slurred speech; F41.9 Anxiety disorder, unspecified; D75.839 Thrombocytosis, unspecified; I10 Essential (primary) hypertension; D64.89 Other specified anemias; R93.0 Abnormal findings on diagnostic imaging of skull and head, not elsewhere classified; I72.8 Aneurysm of other specified arteries; Z86.69 Personal history of other diseases of the nervous system and sense organs
CPT/HCPCS: 36415; 70450; 70496; 70498; 70551; 71045; 80048; 80053; 80305; 80320; 80329; 81001; 81003; 82550; 82962; 83605; 83930; 84145; 84146; 84443; 84484; 85025; 85610; 85730; 93005; 93010; 96361; 96365; 96366; 96367; 96372; 97116; 97162; 99284; G0378; G0480; J1644; J1953; Q9967